=== PATIENT | female | born 1950 | race Caucasian/White ===

== ENCOUNTER → 2019-04-14 12:27 | Outpatient (CLI) | payer MEDICARE, SELFPAY ==
--- NOTE | ~2019-04-14 | MM_ITS ---
EXAMINATION: MM screening [facility] BI w dina HISTORY: Screening mammogram TECHNIQUE: Craniocaudal and mediolateral oblique 3-D tomosynthesis images were obtained and synthetic 2-D images were generated. CAD analysis was submitted and interpreted. COMPARISON: 12/01/2016, 01/09/2015, 06/10/2011 BREAST PARENCHYMAL COMPOSITION: The breasts are almost entirely fatty. FINDINGS: Scattered benign-appearing calcifications are present. There is no evidence of suspicious m ass, calcification, or architectural distortion to suggest malignancy in either breast. There has bee n no suspicious interval change. IMPRESSION: 1. No mammographic evidence of malignancy. 2. Recommend routine screening mammography in one year. BI-RADS Category 2: Benign finding(s). Reviewed, dictated and finalized at location A. LACER
--- NOTE | ~2019-04-14 | DEXA_ITS ---
Bone Density Report Name: Valerie Sheridan Age: 68 Sex: Female Ethnicity: White Date of : 1950 Indication: postmenopausal; screening for osteoporosis; Referring Provider: ROGERIO*, ADRIAN Miranda Study: Bone densitometry was performed. Exam Date: April 14, 2019 Accession number: [id number] Bone Density: Region BMD T-score Z-score Classification AP Spine (L1-L4) 1.219 1.6 3.7 Normal Femoral Neck (Left) 0.883 0.3 2.1 Normal Total Hip (Left) 1.050 0.9 2.4 Normal Femoral Neck (Right) 0.953 0.9 2.8 Normal Total Hip (Right) 0.998 0.5 2.0 Normal Total Hip Mean 1.024 0.7 2.2 Normal World Health Organization criteria for BMD impression classify patients as: Normal (T-score at or above -1.0), Osteopenia (T-score between -1.0 and -2.5), or Osteoporosis (T-score at or below -2.5). 10-year Fracture Risk: FRAX not reported because: All T-scores for Spine Total, Hip Total, Femoral Neck at or above -1.0 Previous Exams: Region Exam Age BMD T-score BMD Change BMD Change Date g/cm2 vs Baseline vs Previous AP Spine(L1-L4) 04/14/2019 68 1.219 1.6 0.015 -0.008 01/09/2015 64 1.227 1.6 0.023 0.023 11/15/2008 58 1.204 1.4 Total Hip(Left) 04/14/2019 68 1.050 0.9 0.010 -0.003 01/09/2015 64 1.053 0.9 0.013 0.013 11/15/2008 58 1.040 0.8 Total Hip(Right) 04/14/2019 68 0.998 0.5 -0.056 -0.046* 01/09/2015 64 1.044 0.8 -0.010 -0.010 11/15/2008 58 1.054 0.9 *Denotes significance at 95% confidence level, LSC for AP Spine = 0.022 g/cm2, LSC for Total Hip = 0.027 g/cm2 Clinical Information Provided by Patient: Patient maximum height was 61.75 Menopause Age: 46 No regular weight bearing exercise Drinks caffeinated beverages Onset of menses at age 10 Number of children 2 Impression: The patient has normal bone mass. The BMD for the Total Hip(Right) decreased, changing by -0.046 since the last DXA exam. Discussion: LOW RISK OF FRACTURE; BONE DENSITY IS WELL ABOVE THE MINIMUM DESIRABLE LEVEL AND ABOVE AVERAGE FOR AGE AND SEX AT ALL SKELETAL SITES TESTED. This person's bone density is above expected limits for age and sex. This is rarely clinically significant, but should be pursued if there are significant musculoskeletal complaints. The patient should follow a healthful lifestyle (good nutrition with adequate calc
== END ==
PROVIDERS: PCP Internal Medicine; Visit Provider Internal Medicine
DX: Z12.31 Encounter for screening mammogram for malignant neoplasm of breast (principal); Z78.0 Asymptomatic menopausal state
CPT/HCPCS: 77063; 77067; 77080

== ENCOUNTER → 2021-05-16 10:50 | Outpatient (CLI) | payer MEDICARE, SELFPAY ==
--- NOTE | ~2021-05-16 | MM_ITS ---
EXAMINATION: MM screening [facility] BI w dina HISTORY: Screening mammogram TECHNIQUE: Craniocaudal and mediolateral oblique 3-D tomosynthesis images were obtained and synthetic 2-D images were generated. CAD analysis was submitted and interpreted. COMPARISON: 04/14/2019, 12/01/2016, 01/09/2015 BREAST PARENCHYMAL COMPOSITION: The breasts are almost entirely fatty. FINDINGS: Scattered benign-appearing calcifications are present. There is no evidence of suspicious m ass, calcification, or architectural distortion to suggest malignancy in either breast. There has bee n no suspicious interval change. IMPRESSION: 1. No mammographic evidence of malignancy. 2. Recommend routine screening mammography in one year. BI-RADS Category 2: Benign finding(s). Reviewed, dictated and finalized at location A. SELING CASE MANAGER
== END ==
PROVIDERS: PCP Internal Medicine; Visit Provider Internal Medicine
DX: Z12.31 Encounter for screening mammogram for malignant neoplasm of breast (principal)
CPT/HCPCS: 77063; 77067

== ENCOUNTER → 2022-02-25 09:19 | Outpatient (CLI) | payer MEDICARE, SELFPAY ==
--- NOTE | ~2022-02-25 | DEXA_ITS ---
Bone Density Report Name: AIDEN CANAS Age: 71 Sex: Female Ethnicity: White Date of : 1950 Indication: postmenopausal; screening for osteoporosis; Referring Provider: ROGERIO*, ADRIAN Miranda Study: Bone densitometry was performed. Exam Date: February 25, 2022 Accession number: [id number] Bone Density: Region BMD T-score Z-score Classification AP Spine (L1-L4) 1.216 1.5 3.8 Normal Femoral Neck (Left) 0.851 0.0 2.0 Normal Total Hip (Left) 0.998 0.5 2.2 Normal Femoral Neck (Right) 0.920 0.6 2.6 Normal Total Hip (Right) 0.999 0.5 2.2 Normal Total Hip Mean 0.999 0.5 2.2 Normal World Health Organization criteria for BMD impression classify patients as: Normal (T-score at or above -1.0), Osteopenia (T-score between -1.0 and -2.5), or Osteoporosis (T-score at or below -2.5). 10-year Fracture Risk: FRAX not reported because: All T-scores for Spine Total, Hip Total, Femoral Neck at or above -1.0 Previous Exams: Region Exam Age BMD T-score BMD Change BMD Change Date g/cm2 vs Baseline vs Previous AP Spine(L1-L4) 02/25/2022 71 1.216 1.5 0.012 -0.003 04/14/2019 68 1.219 1.6 0.015 -0.008 01/09/2015 64 1.227 1.6 0.023 0.023 11/15/2008 58 1.204 1.4 Total Hip(Left) 02/25/2022 71 0.998 0.5 -0.042 -0.052* 04/14/2019 68 1.050 0.9 0.010 -0.003 01/09/2015 64 1.053 0.9 0.013 0.013 11/15/2008 58 1.040 0.8 Total Hip(Right) 02/25/2022 71 0.999 0.5 -0.055 0.001 04/14/2019 68 0.998 0.5 -0.056 -0.046* 01/09/2015 64 1.044 0.8 -0.010 -0.010 11/15/2008 58 1.054 0.9 *Denotes significance at 95% confidence level, LSC for AP Spine = 0.022 g/cm2, LSC for Total Hip = 0.027 g/cm2 Clinical Information Provided by Patient: Has used the following medications: Vitamin D, Calcium, MULTIVITAMIN Patient maximum height was 61.75 Menopause Age: 46 No regular weight bearing exercise Does not regularly consume dairy products Drinks caffeinated beverages Onset of menses at age 10 Number of children 2 Impression: The patient has normal bone mass. The BMD for the Total Hip(Left) decreased, changing by -0.052 since the last DXA exam. Discussion: BONE DENSITY IS ABOVE THE MINIMUM DESIRABLE LEVEL AT ALL SKELETAL SITES TESTED. This patient?s jaquan
== END ==
PROVIDERS: PCP Internal Medicine; Visit Provider Internal Medicine
DX: M81.0 Age-related osteoporosis without current pathological fracture (principal)
CPT/HCPCS: 77080

== ENCOUNTER → 2022-10-15 10:26 | Outpatient (CLI) | payer MEDICARE, SELFPAY ==
--- NOTE | ~2022-10-15 | MM_ITS ---
EXAMINATION: MM screening [facility] BI w dina HISTORY: Screening mammogram TECHNIQUE: Craniocaudal and mediolateral oblique 3-D tomosynthesis images were obtained and synthetic 2-D images were generated. CAD analysis was submitted and interpreted. COMPARISON: No prior mammogram is available for comparison at this institution. BREAST PARENCHYMAL COMPOSITION: The breasts are almost entirely fatty. FINDINGS: There is no evidence of suspicious mass, calcification, or architectural distortion to sugg est malignancy in either breast. There has been no suspicious interval change. IMPRESSION: 1. No mammographic evidence of malignancy. 2. Recommend routine screening mammography in one year. BI-RADS Category 1: Negative Reviewed, dictated and finalized at location A.
== END ==
PROVIDERS: PCP Internal Medicine; Visit Provider Internal Medicine
DX: Z12.31 Encounter for screening mammogram for malignant neoplasm of breast (principal)
CPT/HCPCS: 77063; 77067

== ENCOUNTER 2023-04-28 00:47 | Day surgery (SDC) | payer MEDICARE, SELFPAY ==
[2023-04-03 11:00] VITALS: BMI 36.1
--- NOTE | 2023-04-24 11:19 | SUR.PREOP ---
Patient called regarding upcoming procedure. VOICEMAIL LEFT REGARDING UPCOMING APPOINTMENT. INSTRUCTED TO CALL WITH ANY QUESTIONS. CONFIRMED TIME AND DATE.
--- NOTE | 2023-04-27 19:33 | PM.HPGS ---
History of Present Illness History of Present Illness Consent: Risks, benefits, and alternatives have been discussed and questions answered. Patient agrees to proceed with procedure. Chief complaint: hx colon polyps Narrative: Valerie Sheridan is a 72 year old female who is referred for colon cancer screening. 6 years ago she had a tubular adenoma removed from the area of the hepatic flexure. Review of Systems Review of Systems: All systems reviewed & are unremarkable except as noted in HPI and below PMFSH Social History Social History Smoking status: Former smoker Tobacco type: cigarettes Alcohol intake: current Drinks per week: 1 Substance use type: does not use Living arrangements: alone Spiritual care concerns: No Meds Home Medications and Allergies Home Medications Medication Instructions Recorded Confirmed Type Bifidobacterium infantis 10.5 mg 10.5 mg PO DAILY 04/03/23 04/28/23 History (10 million cell) chewable tablet (Align) aspirin 81 mg tablet 81 mg PO DAILY 04/03/23 04/28/23 History lisinopril 20 mg tablet 10 mg PO DAILY 04/03/23 04/28/23 History Allergies Allergy/AdvReac Type Severity Reaction Status Date / Time No Known Allergies Allergy Verified 04/28/23 08:16 Exam Const: General: alert Orientation/consciousness: patient oriented x3 Resp: Auscultation: clear to auscultation bilaterally Cardio: Rhythm: regular rhythm GI: GI Palp: Yes Soft to palpation and No Tenderness to palpation present (GI) Neuro: General: patient oriented x3 Assessment and Plan Assessment and plan (1) Colon cancer screening: Code(s): Z12.11 - Encounter for screening for malignant neoplasm of colon Status: Acute Assessment and Plan: Colonoscopy with possible biopsy or polypectomy or cautery or injection of substances.
[2023-04-28 08:18] VITALS: BP 143/74; PULSE 87; RESP 18; TEMP 36.4; O2SAT 97; BMI 36.3
[2023-04-28] MEDS: LACTATED RINGERS 1,000 ML 150 ML IV CONT (08:43)
[2023-04-28] MEDS: GENTAMICIN 80MG/SOD CHL 50 ML 80 MG/50 ML BAG 100 MG IVPB (08:44)
[2023-04-28] MEDS: AMPICILLIN 2 GM/NS 100 ML 2 GM/100 ML BAG IVPB (09:10)
[2023-04-28 09:30] VITALS: BP 125/60; PULSE 76; RESP 16; O2SAT 98
[2023-04-28 09:40] VITALS: BP 129/68; PULSE 73; RESP 19; O2SAT 100
[2023-04-28 09:50] VITALS: BP 103/66; PULSE 58; RESP 20; O2SAT 100
--- NOTE | 2023-05-08 15:27 | P.PNAN_ITS ---
Anes - Initial Pre Proc Eval Procedure: Operation Date: 04/28/23 09:30 Proposed Procedures p Colonoscopy - Martin Kenney MD Date/Time: 05/08/23 15:27 Surgeon: Martin Kenney MD Pre Op Diagnosis: hx colon polyps Patient Data Age: 72 Gender: F Height: 1.57 m Weight: 90.3 kg Last Vital Signs Temp 97.5 F L 04/28/23 08:18 Pulse 58 L 04/28/23 09:50 Resp 20 04/28/23 09:50 BP 103/66 04/28/23 09:50 Pulse Ox 100 04/28/23 09:50 O2 Del Method Room Air 04/28/23 09:50 Allergies Allergy/AdvReac Type Severity Reaction Status Date / Time No Known Allergies Allergy Verified 04/28/23 08:16 Home Medications Medication Instructions Recorded Confirmed Type Bifidobacterium infantis 10.5 mg 10.5 mg PO DAILY 04/03/23 04/28/23 History (10 million cell) chewable tablet (Align) aspirin 81 mg tablet 81 mg PO DAILY 04/03/23 04/28/23 History lisinopril 20 mg tablet 10 mg PO DAILY 04/03/23 04/28/23 History Patient hx anesthesia problems: none Family hx anesthesia problems: none Results Review: All pre-operative results and documents have been reviewed as part of the pre- operative evaluation. [facility] Social History Social History Smoking status: Former smoker Tobacco type: cigarettes Alcohol intake: current Drinks per week: 1 Substance use type: does not use Living arrangements: alone Spiritual care concerns: No Anes - Eval Final PreProcedure Day of Procedure 05/08/23 15:27 Patient weight: obese Heart: regular rate and rhythm Lungs: clear to auscultation Airway: Mallampati scale class III Neurological: alert and oriented Last oral intake: >/= 8 hours ASA classification: III Emergent: no Anesthetic plan: proceed Anesthesia type and monitoring: general GIVS and standard monitoring Results Review: All pre-operative results and documents have been reviewed as part of the pre- operative evaluation. Informed Consent: The patient's anesthetic plan and its attendant risks and benefits were discussed with the patient/family/POA. Questions were solicited and answers provided to the satisfaction of the patient/family/POA.
== END 2023-04-28 10:03 | disposition home or self-care (01) ==
PROVIDERS: PCP Internal Medicine; Visit Provider Internal Medicine Gastroenterology
PROC: 0DJD8ZZ Inspection of Lower Intestinal Tract, Via Natural or Artificial Opening Endoscopic (ICD-10-PCS; CPT 45378; principal; 2023-04-28 09:30)
DX: Z12.11 Encounter for screening for malignant neoplasm of colon (principal); K57.30 Diverticulosis of large intestine without perforation or abscess without bleeding; K64.8 Other hemorrhoids; Z86.010 Personal history of colon polyps; Z87.891 Personal history of nicotine dependence; Z79.82 Long term (current) use of aspirin
CPT/HCPCS: G0105; J0290; J1580; J2704; J7120

== ENCOUNTER 2023-10-05 08:34 | Outpatient (CLI) | payer MEDICARE, SELFPAY ==
--- NOTE | ~2023-10-05 | MR_ITS ---
EXAMINATION: MR knee LT wo con DATE: 10/05/2023 09:17 INDICATION: S83.242A - Other tear of medial meniscus, current injury,... TECHNIQUE: Magnetic resonance imaging (MRI) of the left knee was performed without intravenous contra st. Sequences included axial PD-weighted FS FSE, coronal PD-weighted FSE and PD-weighted FS FSE, sagi ttal PD-weighted FSE, and sagittal T2-weighted FS FSE. COMPARISON: 09/29/2023, images only. FINDINGS: Medial compartment: Apical and horizontally oriented cleavage type tear of the meniscal body and posterior horn. Severe d iffuse cartilage thinning. Mild osteophytosis. Lateral compartment: Meniscus intact. Severe diffuse cartilage thinning. Mild osteophytosis. Patellofemoral compartment: Focal full-thickness cartilage loss over the median facet. Ligaments and tendons: The ACL, PCL, MCL, and LCL are intact. Remaining flexor and extensor tendons are intact. Quadriceps e nthesopathy. Fluid: Small Florentino's cyst. Osseous/other: No suspicious focal or diffuse marrow signal. IMPRESSION: Complex tear of the medial meniscal body and posterior horn. Moderate tricompartmental osteoarthritis. Quadriceps enthesopathy. Small Florentino's cyst. Reviewed, dictated and finalized at location K.
== END 2023-10-05 08:35 ==
LOC: MICIMG 08:35
PROVIDERS: PCP Internal Medicine; Visit Provider Orthopaedic Surgery
DX: S83.232A Complex tear of medial meniscus, current injury, left knee, initial encounter (principal); M17.12 Unilateral primary osteoarthritis, left knee; M71.22 Synovial cyst of popliteal space [Baker], left knee; X58.XXXA Exposure to other specified factors, initial encounter
CPT/HCPCS: 73721

== ENCOUNTER 2024-04-11 11:16 | Outpatient (CLI) | payer MEDICARE, SELFPAY ==
[2024-04-11 11:27] LABS: Collection Time Urine 24 HOURS
[2024-04-11 11:55] LABS: Estimated Glomerular Filt Rate 41
[2024-04-11 12:13] LABS: Patient Weight 203 Lbs; Total Protein Urine Random 8 mg/dL
--- OUTSIDE RECORDS SUMMARY | 2024-04-11 12:20 | XMS_ITS | Clinical Summary ---
Author Organization [facility] [place] [address] Address [address] [place] [address] Care Team Providers Care Distance Education Director Name Role Phone Jakob Mohr MD Primary Care Provider Allergies No known active allergies Medications aspirin 81 mg enteric coated tablet Take 1 tablet (81 mg total) by mouth daily Active estrogens, conjugated, (PREMARIN) vaginal cream Insert into the vagina daily Active lisinopriL (PRINIVIL,ZESTRI L) 20 mg tablet Take 1 tablet (20 mg total) by mouth daily 04/13/2023 Active ascorbic acid, vitamin C, (ascorbic acid) 250 mg tablet,chewable Take 1 tablet/chew tab by mouth daily after lunch Active zinc sulfate (ZINC-15 ORAL) Take 1 tablet by mouth daily after lunch Active calcium carb/vit D3/minerals (CALCIUM-VITAMIN D ORAL) Take 1 tablet by mouth daily Active Bacillus coagulans/inulin (PROBIOTIC WITH PREBIOTIC ORAL) Take 2 Gum by mouth daily after lunch Active ashwagandha root extract 300 mg tablet Take 1 tablet by mouth daily after lunch Active rosuvastatin (CRESTOR) 10 mg tablet Take 1 tablet (10 mg total) by mouth daily 02/04/2024 5 Active Active Problems Problem Noted Date Diagnosed Date Hyperlipidemia LDL goal <70 06/23/2023 Coronary artery calcification seen on CT scan Abnormal ECG 05/14/2023 Class 2 severe obesity due t o excess calories with serious comorbidity and body mass index (BMI) of 36.0 to 36.9 in adult 05/14/2023 PND (paroxysmal nocturnal dyspnea) 05/14/2023 History of rheumatic fever 05/14/2023 Essential hypertension 05/14/2023 SOB (shortness of breath) 05/14/2023 Chest pain 05/14/2023 Abnormal mammogram 01/15/2010 Encounters Date Type Department Care Team Description 01/21/2024 Telephone [facility] [address] [place] [address] Osman Luu MD Medication Reaction; Muscle Pain from Last 3 Months Surgical History Surgery Date Site/Laterality Comments CATARACT EXTRACTION CHOLECYSTECTOMY KNEE SURGERY Medical History Medical History Date Comments Rheumatic fever Hypertension History of gallstones Family History Medical History Relation Name Comments COPD Brother 1 Rheum arthritis Brother 2 Pneumonia Brother 3 Lung cancer Father Heart disease Mother Rheum arthritis Sister 1 Heart failure Sister 4 Kidney disease Sister 5 Car Accident Sister 6 Relation Name Status Comments Brother 1 Brother 2 Brother 3 Father Mother Sister 1 Alive Sister 2 Alive Sister 3 Alive Sister 4 Sister 5 Sister 6 Social History Tobacco Use Types Packs/Day Years Used Date Smoking Tobacco: Former Cigarettes Passive Smoke Exposure: Past Smokeless Tobacco: Never Tobacco Cessation:Counseling Given: Not Answered Personal Safety Answer Date Recorded Have you ever been in or are you currently in a harmful physical or emotional relationship or is someone making you feel afraid or unsafe? 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 Gender Identity Not on file Sexual Orientation Not on file Obstetrics History Last Filed Vital Signs Vital Sign Reading Time Taken Comments Blood Pressure 100/58 12/14/2023 10:24 AM CDT Pulse 75 12/14/2023 10:24 AM CDT Temperature 36.3 ??C (97.3 ??F) 06/17/2023 11:23 AM C DT Respiratory Rate 22 06/17/2023 3:50 PM CDT Oxygen Saturation 97% 12/14/2023 10:24 AM CDT Inhaled Oxygen Concentration - - Weight 92.1 kg (203 lb) 12/14/2023 10:24 AM CDT Height 160 cm (5' 3 ) 12/14/2023 10:24 AM CDT Body Mass Index 35.96 12/14/2023 10:24 AM CDT Plan of Treatment Health Maintenance Due Date Last Done Comments Colon Cancer Screening-Colonoscopy 1950 Depression Screening 1950 Fall Risk Assessment 1950 Hepatitis C Screening 1950 Osteoporosis Screening-Bone Density Scan 1950 DTaP/Tdap/Td Vaccine (1 - Tdap) 09/23/1959 Hepatitis B Screening 1966 Zoster Vaccine (2 of 3) 06/03/2013 04/08/2013 Well Visit 65+ 2013 Pneumococcal vaccine 65+ (2 of 2 - PPSV23 or PCV20) 02/23/2020 02/22/2019 Covid-19 Vaccine (2023-2 5 season) 2023 09/12/2022, 02/14/2022, 10/03/2021, Additional history exists Influenza Vaccine (#1) 2023 , 01/17/2021, 12/13/2019, Additional history exists Insurance MEDICARE [facility] MEDICARE Care Teams Distance Education Director Relationship Specialty Start Date End Date Jakob Mohr MD [facility] [place] [address] PCP - General Internal Medicine 06/08/23
--- OUTSIDE RECORDS SUMMARY | 2024-04-11 12:20 | XMS_ITS | Clinical Summary ---
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 Gender Identity Not on file Sexual Orientation Not on file Plan of Treatment Health Maintenance Due Date Last Done Comments DEXA Bone Density 1950 Hepatitis C Virus (HCV) Screening 1950 TdaP Immunization 1950 Colonoscopy 1993 Colorectal Cancer Screening 1993 Cologuard 1998 Immunochemical Fecal Occult Blood 1998 Mammogram 1998 Pneumococcal Immunization (5 0+ years) (1 of 1 - PCV) 1998 Zoster Immunization (1 of 2) 1998 Respiratory Syncytial Virus (RSV) Immunization (Adult) (1 - 1-dose 75+ series) 09/23/2023 Influenza Immunization (#1) 2023 SARS-COV-2 Immunization ( season) 2023 Hepatitis B Immunization Aged Out No longer eligible based on patient's age to complete this topic Meningococcal Immunization (ACWY) Aged Out No longer eligible based on patient's age to complete this topic Rotavirus Immunization Aged Out No lo nger eligible based on patient's age to complete this topic
--- OUTSIDE RECORDS SUMMARY | 2024-04-11 12:20 | XMS_ITS | Data Portability ---
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 Plan of Treatment Reminders Order Date Submit Date Provider Last Modified By Organization Details Last Modified Time Details Appointments None recorded. Lab iron + total iron-stephen ng capacity (TIBC), serum [address] [facility], [address] [place], [address], 3 10:02:24 CBC w/ auto diff [address] [facility], [address] [place], [address], 3 10:02:25 vitamin B12, serum [address] [facility], [address] [place], [address], 3 10:02:26 vitamin D, 25-hydroxy , total, serum [address] [facility], [address] [place], [address], 3 04:53:05 CBC w/ auto diff [address] [facility], [address] [place], [address], 3 04:53:02 CMP, serum or plasma [address] [facility], [address] [place], [address], 3 04:53:01 lipid panel, serum [address] [facility], [address] [place], [address], 3 04:52:59 TSH, serum or plasma [address] [facility], [address] [place], [address], 3 04:53:04 T4, free, serum [address] [facility], [address] [place], [address], 3 04:53:03 lipid panel, serum [id number] [facility], [address] [place], [address], 4 09:42:42 CMP, serum or plasma [id number] [facility] [address] [facility], [address] [place], [address], 4 09:42:42 T4, free, serum [id number] [facility] [address] [facility], [address] [place], [address], 4 09:42:42 TSH, serum or plasma [id number] [facility], [address] [place], [address], 4 09:42:42 CBC w/ auto diff [id number] [facility], [address] [place], [address], 4 09:42:42 CBC w/ auto diff [address] [facility], [address] [place], [address], 4 11:05:53 CMP, serum or plasma [address] [facility], [address] [place], [address], 4 11:05:52 lipid panel, serum 2023 024 [facility], [address] [place], [address], 4 11:05:50 TSH, serum or plasma [address] [facility], [address] [place], [address], 4 11:05:56 T4, free, serum [address] [facility], [address] [place], [address], 4 11:05:54 Referral None recorded. Procedures None recorded. Surgeries None recorded. Imaging None recorded. Medication Orders None recorded. Patient TargetsNo targets recorded. Patient Instructions Encounter Date Encounter Id Patient Instructions Last Modified By Organization Details Last Modified Time 07/22/2022 [id number] Hypertension -cl ass two obesity- PICA for crushed ice. Continue on current medications. Will check blood work consisting of CBC, serum iron level iron binding capacity and ferritin level. Check a CMP. Also needs a mammogram. Follow-up in six months. Mammogram [email or web address] Not available 07/22/2022 11:05:33 01/27/2023 [id number] dementia rating scale-2* [email or web address] Not available 01/27/2023 11:20:55 alcohol misuse* Not available 01/27/2023 11:20:55 depression screening* [email or web address] Not available 01/27/2023 11:20:55 Timed Up and Go test (TUG)* [email or web address] Not available 01/27/2023 11:20:55 multi-dimensiona l health assessment questionnaire* Not available 01/27/2023 11:20:55 Personalized Hea lt Plan and Screening Recommendations Advance Directives - Do you have one? Yes Advance Directives - Do we have your advance directive on file in your health record? Primary Prevention/Interven tion (prevents or decreases the chance of common diseases from occurring) Smoking Risk: Non Smoker Alcohol Misuse Screening: Negative Weight: Appropriate Overwei ght continue your current weight loss efforts try to lose 5% of your body weight try to lose 10% of your body weight Physical activity: Nutrition: Good Average Fall Risk (screened today): Low Vaccines Pneumococcal: Ordered Recommended today Recommended today, but you have declined No further needed Influenza: Chronic Disease Risks Stroke: Low Risk Intermediate Risk I have no recommendations Act thien diagnosis, Continue current treatment plan Heart Attack: Low risk I have no recommendations Clogging of the Arteries: Low risk I have no recommendations Diabetes: Low Risk Intermediate Risk I have no recommendations Ref er to attached handout ? P re-diabetes: After Your Visit? Drastically limit sugar and products made with any type of flour (bread, pasta, cereal, cookies, crackers, etc.) Secondary Prevention/Interven tion (detects treatable diseases before they may cause symptoms, disability, or ) Breast Cancer Screening with mammogram: Cervical/Uterine/Ov nas Cancer Screening: Osteoporosis Screening: Date Screening Last Performed: Colon Cancer Screening: Colonoscopy In: Ordered Recomme nded Date Screening Last Performed: Eye Disease Screening: Dementia Risk: Low I have no recommendations Depression Screening: Negative [email or web address] Not available 01/27/2023 11:04:44 Adult health examination risk assessment stable. Follow-up for hypertension, atypical chest pain, obesity class two all clinically stable. Was given a flu shot. Will check blood work consisting of CBC, CMP, lipid, thyroid and vitamin-D level. Is in need have a colonoscopy follow-up. Continue on current medications and follow-up in six months. Standard immunizations of RSV, COVID, influenza and shingles as recommended. Portions of the record may have been created with voice recognition software. Occasional wrong-word or ? s ound-a-like? substitutions may have occurred due to the inherent limitations of voice recognition software. Read the chart carefully and recognize, using context, where substitutions have occurred. Follow-up colonoscopy for polyps. Cardiology consult for atypical exertional shortness of breath and chest discomfort Next Appt: 6 Months Approximate Date: 07/26/2023 [email or web address] Not available 01/27/2023 11:20:12 07/28/2023 [id number] Follow-up hypertension, hyperlipidemia and obesity class two all clinically stable. Will check a CBC, CMP, thyroid and lipid panel. Continue on current Rx follow-up in six months. Next Appointment: 6 Months Approximate Date: 01/24/2024 Portions of the record may have been created with voice recognition software. Occasional wrong-word or ? s ound-a-like? substitutions may have occurred due to the inherent limitations of voice recognition software. Read the chart carefully and recognize, using context, where substitutions have occurred. [email or web address] Not available 07/28/2023 10:44:23 02/02/2024 [id number] dementia rating scale-2* Not available 02/02/2024 11:11:05 alcohol misuse* [email or web address] Not available 02/02/2024 11:11:04 depression screening* [email or web address] Not available 02/02/2024 11:11:04 multi-dimensiona l health assessment questionnaire* [email or web address] Not available 02/02/2024 11:11:05 Personalized Hea lth Plan and Screening Recommendations Advance Directives - Do you have one? Yes Advance Directives - Do we have your advance directive on file in your health record? Primary Prevention/Interven tion (prevents or decreases the chance of common diseases from occurring) Smoking Risk: Non Smoker Alcohol Misuse Screening: Negative Weight: Appropriate Overwei ght continue your current weight loss efforts try to lose 5% of your body weight try to lose 10% of your body weight Physical activity: Nutrition: Good Average Fall Risk (screened today): Low Vaccines Pneumococcal: Ordered Recommended today Recommended today, but you have declined No further needed Influenza: Chronic Disease Risks Stroke: Low Risk Intermediate Risk I have no recommendations Act thien diagnosis, Continue current treatment plan Heart Attack: Low risk Intermediate Risk I have no recommendations Act thien diagnosis, Continue current treatment plan Clogging of the Arteries: Low risk Intermediate Risk I have no recommendations Act thien diagnosis, Continue current treatment plan Diabetes: Low Risk Intermediate Risk I have no recommendations Ref er to attached handout ? P re-diabetes: After Your Visit? Drastically limit sugar and products made with any type of flour (bread, pasta, cereal, cookies, crackers, etc.) Secondary Prevention/Interven tion (detects treatable diseases before they may cause symptoms, disability, or ) Breast Cancer Screening with mammogram: Your next mammogram: Ordered Recommended today Cervical/Uterine/Ov nas Cancer Screening: Osteoporosis Screening: Your next DEXA in: Ordered Recomme nded today Date Screening Last Performed: Colon Cancer Screening: Colonoscopy Date Screening Last Performed: _2023____ Eye Disease Screening: Dementia Risk: Low I have no recommendations Depression Screening: Negative [email or web address] Not available 02/02/2024 11:04:08 Medicare wellnes s evaluation risk assessment stable. Follow-up for coronary artery disease, hypertension, hyperlipidemia and obesity class one. All clinically stable. Patient does need blood work in the form of CBC, CMP, lipid, thyroid and vitamin-D level. Will continue on current Rx was unable to tolerate the statins. Is followed on a regular basis by Cardiology was attempting to use when the PCSK9 inhibitors. Otherwise is clinically stable. Follow-up in six months. Additional Orders - Directives - Recommendations 1. Mammogram 2 . Bone density scan Follow Up: 6 Months Approximate Date: 07/31/2024 Created: Adrian Mohr M.D. 02.02.2024 10:10 AM Portions of the record may have been created with voice recognition software. Occasional wrong-word or ? s ound-a-like? substitutions may have occurred due to the inherent limitations of voice recognition software. Read the chart carefully and recognize, using context, where substitutions have occurred. Not available 02/02/2024 11:10:43 Reason for Referral None Reported. Results Created Date Observation Date Name Description Value Unit Range Abnormal Flag Note LastModifiedBy Organization Detail LastModifiedTime 02/14/20 22 02/14/2022 VITAM IN D,25- OH,TO ANI,I A vitamin D,25-oh,tota l,ia 31 NG/mL 30-100 normal Vitam in D Statu s 25-OH Vitam in D: Defic iency : <20 ng/mL Insuf ficie ncy: 20 - 29 ng/mL Optim al: > or = 30 ng/mL For 25-OH Vitam in D testi ng on patie nts on D2-friedman pplem entat ion and patie nts for whom quant itati on of D2 and D3 fract ions is requi red, the [facility] e[facility](TM ) 25-OH VIT D, (D2,D 3), LC/MS /MS is recom kanu d: order code 88014 (memo ents >2yrs ). See Note 1 Note 1 For addit ional infor lashae segura e refer to http: //padmini Chris stDia gnost ics.c om/fa q/FAQ 199 (This link is being provi ded for infor muna machuca/ machelle villagran purpo ses only. ) Not Available [facility] [place] [address] [place], [address], 02/14/2022 15:05:27 02/14/20 22 02/14/2022 TSH TSH 1.59 mIU/L 0.40-4 .50 normal Not Available [facility] [place] [address] [place], [address], 02/14/2022 15:05:26 02/14/20 22 02/14/2022 T4, FREE T4, free 1.0 NG/dL 0.8-1. 8 normal Not Available [facility] [place] [address] [place], [address], 02/14/2022 15:05:25 02/14/20 22 02/14/2022 CBC (INCL UDES DIFF/ PLT) white blood cell count 6.2 thous and/u L 3.8-10 .8 normal Not Available [address], [address], 02/14/2022 15:05:25 02/14/20 22 02/14/2022 CBC (INCL UDES DIFF/ PLT) red blood cell count 4.25 brendan on/uL 3.80-5 .10 normal Not Available [address], [address], 02/14/2022 15:05:25 02/14/20 22 02/14/2022 CBC (INCL UDES DIFF/ PLT) hemoglobin 11.8 g/dL 11.7-1 5.5 normal Not Available [address], [address], 02/14/2022 15:05:25 02/14/20 22 02/14/2022 CBC (INCL UDES DIFF/ PLT) hematocrit 36.7 % 35.0-4 5.0 normal Not Available [address], [address], 02/14/2022 15:05:25 02/14/20 22 02/14/2022 CBC (INCL UDES DIFF/ PLT) MCV 86.4 fL 80.0-1 00.0 normal Not Available [address], [address], 02/14/2022 15:05:25 02/14/20 22 02/14/2022 CBC (INCL UDES DIFF/ PLT) MCH 27.8 pg 27.0-3 3.0 normal Not Available [address], [address], 02/14/2022 15:05:25 02/14/20 22 02/14/2022 CBC (INCL UDES DIFF/ PLT) MCHC 32.2 g/dL 32.0-3 6.0 normal Not Available [address], [address], 02/14/2022 15:05:25 02/14/20 22 02/14/2022 CBC (INCL UDES DIFF/ PLT) RDW 14.2 % 11.0-1 5.0 normal Not Available [address], [address], 02/14/2022 15:05:25 02/14/20 22 02/14/2022 CBC (INCL UDES DIFF/ PLT) platelet count 276 thous and/u L 140-40 0 normal Not Available [address], [address], 02/14/2022 15:05:25 02/14/20 22 02/14/2022 CBC (INCL UDES DIFF/ PLT) MPV 9.5 fL 7.5-12 .5 normal Not Available [address], [address], 02/14/2022 15:05:25 02/14/20 22 02/14/2022 CBC (INCL UDES DIFF/ PLT) absolute neutrophils 2877 cells /uL 1500-7 800 normal Not Available [address], [address], 02/14/2022 15:05:25 02/14/20 22 02/14/2022 CBC (INCL UDES DIFF/ PLT) absolute lymphocytes 2232 cells /uL 850-39 00 normal Not Available [address], [address], 02/14/2022 15:05:25 02/14/20 22 02/14/2022 CBC (INCL UDES DIFF/ PLT) absolute monocytes 502 cells /uL 200-95 0 normal Not Available [address], [address], 02/14/2022 15:05:25 02/14/20 22 02/14/2022 CBC (INCL UDES DIFF/ PLT) absolute eosinophils 521 cells /uL 15-500 high Not Available [address], [address], 02/14/2022 15:05:25 02/14/20 22 02/14/2022 CBC (INCL UDES DIFF/ PLT) absolute basophils 68 cells /uL 0-200 normal Not Available [facility] [address], [address], 02/14/2022 15:05:25 02/14/20 22 02/14/2022 CBC (INCL UDES DIFF/ PLT) neutrophils 46.4 % normal Not Available [facility] [address], [address], 02/14/2022 15:05:25 02/14/20 22 02/14/2022 CBC (INCL UDES DIFF/ PLT) lymphocytes 36.0 % normal Not Available [facility] [address], [address], 02/14/2022 15:05:25 02/14/20 22 02/14/2022 CBC (INCL UDES DIFF/ PLT) monocytes 8.1 % normal Not Available [facility] [address], [address], 02/14/2022 15:05:25 02/14/20 22 02/14/2022 CBC (INCL UDES DIFF/ PLT) eosinophils 8.4 % normal Not Available [facility] [address], [address], 02/14/2022 15:05:25 02/14/20 22 02/14/2022 CBC (INCL UDES DIFF/ PLT) basophils 1.1 % normal Not Available [facility] [address], [address], 02/14/2022 15:05:25 02/14/20 22 02/14/2022 COMPR EHENS THIEN METAB OLIC PANEL glucose 99 mg/dL 65-99 normal Fasti ng refer ence inter [email or web address] Not Available [address], [address], 02/14/2022 15:05:24 02/14/20 22 02/14/2022 COMPR EHENS THIEN METAB OLIC PANEL urea nitrogen (BUN) 15 mg/dL 7-25 normal Not Available [address], [address], 02/14/2022 15:05:24 02/14/20 22 02/14/2022 COMPR EHENS THIEN METAB OLIC PANEL creatinine 1.12 mg/dL 0.60-1 .00 high Not Available [address], [address], 02/14/2022 15:05:24 02/14/20 22 02/14/2022 COMPR EHENS THIEN METAB OLIC PANEL eGFR 52 mL/mi n/1.7 3m2 > or = 60 low The eGFR is based on the CKD-E PI 2020 equat ion. To calcu late the new eGFR from a previ ous Creat inine or Cysta marilynn C resul t, go to https ://jerry arteaga/corina moscoso s/ kdoqi /gfr% 5Fcal culat or Not Available [address], [address], 02/14/2022 15:05:24 02/14/20 22 02/14/2022 COMPR EHENS THIEN METAB OLIC PANEL BUN/creatini ne ratio 13 (calc ) 6-22 normal Not Available [address], [address], 02/14/2022 15:05:24 02/14/20 22 02/14/2022 COMPR EHENS THIEN METAB OLIC PANEL sodium 143 mmol/ L 135-14 6 normal Not Available [address] [place], [address], 02/14/2022 15:05:24 02/14/20 22 02/14/2022 COMPR EHENS THIEN METAB OLIC PANEL potassium 4.8 mmol/ L 3.5-5. 3 normal Not Available [address], [address], 02/14/2022 15:05:24 02/14/20 22 02/14/2022 COMPR EHENS THIEN METAB OLIC PANEL chloride 108 mmol/ L 98-110 normal Not Available [address], [address], 02/14/2022 15:05:24 02/14/20 22 02/14/2022 COMPR EHENS THIEN METAB OLIC PANEL carbon dioxide 28 mmol/ L 20-32 normal Not Available [address], [address], 02/14/2022 15:05:24 02/14/20 22 02/14/2022 COMPR EHENS THIEN METAB OLIC PANEL calcium 8.9 mg/dL 8.6-10 .4 normal Not Available [address], [address], 02/14/2022 15:05:24 02/14/20 22 02/14/2022 COMPR EHENS THIEN METAB OLIC PANEL protein, total 6.3 g/dL 6.1-8. 1 normal Not Available [address], [address], 02/14/2022 15:05:24 02/14/20 22 02/14/2022 COMPR EHENS THIEN METAB OLIC PANEL albumin 3.8 g/dL 3.6-5. 1 normal Not Available [address], [address], 02/14/2022 15:05:24 02/14/20 22 02/14/2022 COMPR EHENS THIEN METAB OLIC PANEL globulin 2.5 g/dL_ (calc ) 1.9-3. 7 normal Not Available [address], [address], 02/14/2022 15:05:24 02/14/20 22 02/14/2022 COMPR EHENS THIEN METAB OLIC PANEL albumin/glob ulin ratio 1.5 (calc ) 1.0-2. 5 normal Not Available [address], [address], 02/14/2022 15:05:24 02/14/20 22 02/14/2022 COMPR EHENS THIEN METAB OLIC PANEL bilirubin, total 0.3 mg/dL 0.2-1. 2 normal Not Available [address], [address], 02/14/2022 15:05:24 02/14/20 22 02/14/2022 COMPR EHENS THIEN METAB OLIC PANEL alkaline phosphatase 68 U/L 37-153 normal Not Available [address], [address], 02/14/2022 15:05:24 02/14/20 22 02/14/2022 COMPR EHENS THIEN METAB OLIC PANEL AST 12 U/L 10-35 normal Not Available [address], [address], 02/14/2022 15:05:24 02/14/20 22 02/14/2022 COMPR EHENS THIEN METAB OLIC PANEL ALT 8 U/L 6-29 normal Not Available [address], [address], 02/14/2022 15:05:24 02/14/20 22 02/14/2022 LIPID PANEL , STAND ZORA chol/HDLC ratio 4.3 (calc ) <5.0 normal Not Available [address] [place], [address], 02/14/2022 15:05:23 02/14/20 22 02/14/2022 LIPID PANEL , STAND ZORA cholesterol, total 224 mg/dL <200 high Not Available [facility] [address], [address], 02/14/2022 15:05:23 02/14/20 22 02/14/2022 LIPID PANEL , STAND ZORA HDL cholesterol 52 mg/dL > or = 50 normal Not Available [facility] [address] [place], [address], 02/14/2022 15:05:23 02/14/20 22 02/14/2022 LIPID PANEL , STAND ZORA triglyceride s 249 mg/dL <150 high If a non-f astin g speci men was colle cted, consi emilio repea t trigl yceri de testi ng on a fasti ng speci men if clini delta indic ated. Naresh khan et al. J. of Clin. Lipid ol. 2015; 9:129 -169. Not Available [address], [address], 02/14/2022 15:05:23 02/14/20 22 02/14/2022 LIPID PANEL , STAND ZORA LDL-choleste rol 134 mg/dL _(christopher c) high Refer ence range : <100 Mile able range <100 mg/dL for prima ry preve ntion ; <70 mg/dL for patie nts with CHD or diabe tic patie nts with > or = 2 CHD risk facto rs. LDL-C is now calcu lated using the Wendy n-Hop kins mineu lorri n, which is a valid ated novel jacey guardado than the Fried esther equat ion in the estim ation of LDL-C . Wendy oseguera SS et al. YOLANDA. 2013; 310(1 9): 2061- 2068 (http ://ed ucati on.Qu estDi Dexmos. com/f aq/FA Q164) Not Available [facility] [address] [place], [address], 02/14/2022 15:05:23 02/14/20 22 02/14/2022 LIPID PANEL , STAND ZORA non HDL cholesterol 172 mg/dL _(christopher c) <130 high For patie nts with diabe colby plus 1 major ASCVD risk facto r, treat ing to a non-H DL-C goal of <100 mg/dL (LDL- C of <70 mg/dL ) is consi dered a thera peuti c optio n. Not Available [address], [address], 02/14/2022 15:05:23 07/26/19 23 07/26/2022 IRON AND TOTAL IRON STEPHEN NG CAPAC ITY iron, total 47 mcg/d L 45-160 normal Not Available [address] [place], [address], 07/26/2022 10:02:24 07/26/19 23 07/26/2022 IRON AND TOTAL IRON STEPHEN NG CAPAC ITY iron binding capacity 365 mcg/d L_(ca lc) 250-45 0 normal Not Available [address] [address] [place], [address], 07/26/2022 10:02:24 07/26/19 23 07/26/2022 IRON AND TOTAL IRON STEPHEN NG CAPAC ITY % saturation 13 %_(ca lc) 16-45 low Not Available [address] [address] [place], [address], 07/26/2022 10:02:24 07/26/19 23 07/26/2022 CBC (INCL UDES DIFF/ PLT) white blood cell count 5.4 thous and/u L 3.8-10 .8 normal Not Available [address] [address] [place], [address], 07/26/2022 10:02:25 07/26/19 23 07/26/2022 CBC (INCL UDES DIFF/ PLT) red blood cell count 4.15 brendan on/uL 3.80-5 .10 normal Not Available [address], [address], 07/26/2022 10:02:25 07/26/19 23 07/26/2022 CBC (INCL UDES DIFF/ PLT) hemoglobin 11.6 g/dL 11.7-1 5.5 low Not Available [address], [address], 07/26/2022 10:02:07/26/1907/26/2022 CBC (INCL UDES DIFF/ PLT) hematocrit 37.1 % 35.0-4 5.0 normal Not Available [address], [address], 07/26/2022 10:02:25 07/26/19 23 07/26/2022 CBC (INCL UDES DIFF/ PLT) MCV 89.4 fL 80.0-1 00.0 normal Not Available [address], [address], 07/26/2022 10:02:25 07/26/1907/26/2022 CBC (INCL UDES DIFF/ PLT) MCH 28.0 pg 27.0-3 3.0 normal Not Available [address], [address], 07/26/2022 10:02:25 07/26/1907/26/2022 CBC (INCL UDES DIFF/ PLT) MCHC 31.3 g/dL 32.0-3 6.0 low Not Available [address], [address], 07/26/2022 10:02:25 07/26/19 23 07/26/2022 CBC (INCL UDES DIFF/ PLT) RDW 13.8 % 11.0-1 5.0 normal Not Available [facility] [address], [address], 07/26/2022 10:02:25 07/26/1907/26/2022 CBC (INCL UDES DIFF/ PLT) platelet count 259 thous and/u L 140-40 0 normal Not Available [address], [address], 07/26/2022 10:02:25 07/26/1907/26/2022 CBC (INCL UDES DIFF/ PLT) MPV 8.9 fL 7.5-12 .5 normal Not Available [address], [address], 07/26/2022 10:02:25 07/26/1907/26/2022 CBC (INCL UDES DIFF/ PLT) absolute neutrophils 2619 cells /uL 1500-7 800 normal Not Available [address], [address], 07/26/2022 10:02:25 07/26/1907/26/2022 CBC (INCL UDES DIFF/ PLT) absolute lymphocytes 1863 cells /uL 850-39 00 normal Not Available [address], [address], 07/26/2022 10:02:25 07/26/1907/26/2022 CBC (INCL UDES DIFF/ PLT) absolute monocytes 410 cells /uL 200-95 0 normal Not Available [facility] [address], [address], 07/26/2022 10:02:25 07/26/1907/26/2022 CBC (INCL UDES DIFF/ PLT) absolute eosinophils 416 cells /uL 15-500 normal Not Available [facility] [address], [address], 07/26/2022 10:02:25 07/26/19 23 07/26/2022 CBC (INCL UDES DIFF/ PLT) absolute basophils 92 cells /uL 0-200 normal Not Available [address], [address], 07/26/2022 10:02:25 07/26/19 23 07/26/2022 CBC (INCL UDES DIFF/ PLT) neutrophils 48.5 % normal Not Available [address], [address], 07/26/2022 10:02:25 07/26/1907/26/2022 CBC (INCL UDES DIFF/ PLT) lymphocytes 34.5 % normal Not Available [address], [address], 07/26/2022 10:02:25 07/26/1907/26/2022 CBC (INCL UDES DIFF/ PLT) monocytes 7.6 % normal Not Available [address], [address], 07/26/2022 10:02:25 07/26/19 23 07/26/2022 CBC (INCL UDES DIFF/ PLT) eosinophils 7.7 % normal Not Available [address], [address], 07/26/2022 10:02:25 07/26/1907/26/2022 CBC (INCL UDES DIFF/ PLT) basophils 1.7 % normal Not Available [address], [address], 07/26/2022 10:02:25 07/26/1907/26/2022 VITAM IN B12 vitamin B12 365 pg/mL 200-11 00 normal Pleas e Note: Altho ugh the refer ence range for vitam in B12 is 200-1 100 pg/mL , it has been repor lon that betwe en 5 and 10% of patie nts with value s betwe en 200 and 400 pg/mL may exper ience neuro psych iatri c and hemat ologi c abnor malit ies due to occul t B12 defic iency ; less than 1% of patie nts with value s above 400 pg/mL will have sympt oms. Not Available [facility] [place] [address] [place], [address], 07/26/2022 10:02:26 02/03/2002/03/2023 LIPID PANEL , STAND ZORA cholesterol, total 205 mg/dL <200 high Not Available [facility] [address] [place] [address] [place], [address], 02/03/2023 04:52:59 02/03/2002/03/2023 LIPID PANEL , STAND ZORA HDL cholesterol 52 mg/dL > or = 50 normal Not Available [facility] [place] [address] [place], [address], 02/03/2023 04:52:59 02/03/20 23 02/03/2023 LIPID PANEL , STAND ZORA triglyceride s 220 mg/dL <150 high If a non-f astin g speci men was colle cted, consi emilio repea t trigl yceri de testi ng on a fasti ng speci men if clini delta indic ated. Naresh khan et al. J. of Clin. Lipid ol. 2015; 9:129 -169. Not Available [facility] [address] [place], [address], 02/03/2023 04:52:59 02/03/2002/03/2023 LIPID PANEL , STAND ZORA LDL-choleste rol 119 mg/dL _(christopher c) high Refer ence range : <100 Mile able range <100 mg/dL for prima ry preve ntion ; <70 mg/dL for patie nts with CHD or diabe tic patie nts with > or = 2 CHD risk facto rs. LDL-C is now calcu lated using the [facility] n-Hop kins mineu lorri n, which is a valid ated novel methdallas lara acy than the Fried esther equat ion in the estim ation of LDL-C . Wendy n SS et al. OYLANDA. 2013; 310(1 9): 2061- 2068 (http ://ed ucati on.Ann Marie Shea jose fmegan [employer]. com/f aq/FA Q164) Not Available [address], [address], 02/03/2023 04:52:59 02/03/20 23 02/03/2023 LIPID PANEL , STAND ZORA chol/HDLC ratio 3.9 (calc ) <5.0 normal Not Available [address], [address], 02/03/2023 04:52:59 02/03/20 23 02/03/2023 LIPID PANEL , STAND ZORA non HDL cholesterol 153 mg/dL _(christopher c) <130 high For patie nts with diabe colby plus 1 major ASCVD risk facto r, treat ing to a non-H DL-C goal of <100 mg/dL (LDL- C of <70 mg/dL ) is consi rea avilao n. Not Available [address], [address], 02/03/2023 04:52:59 02/03/20 23 02/03/2023 COMPR EHENS THIEN METAB OLIC PANEL glucose 95 mg/dL 65-99 normal Fasti ng refer ence inter olayinka Not Available [address], [address], 02/03/2023 04:53:01 02/03/20 23 02/03/2023 COMPR EHENS THIEN METAB OLIC PANEL urea nitrogen (BUN) 15 mg/dL 7-25 normal Not Available [address], [address], 02/03/2023 04:53:01 02/03/20 23 02/03/2023 COMPR EHENS THIEN METAB OLIC PANEL creatinine 1.08 mg/dL 0.60-1 .00 high Not Available [address], [address], 02/03/2023 04:53:01 02/03/20 23 02/03/2023 COMPR EHENS THIEN METAB OLIC PANEL eGFR 54 mL/mi n/1.7 3m2 > or = 60 low Not Available [address], [address], 02/03/2023 04:53:01 02/03/20 23 02/03/2023 COMPR EHENS THIEN METAB OLIC PANEL BUN/creatini ne ratio 14 (calc ) 6-22 normal Not Available [address], [address], 02/03/2023 04:53:01 02/03/20 23 02/03/2023 COMPR EHENS THIEN METAB OLIC PANEL sodium 140 mmol/ L 135-14 6 normal Not Available [address], [address], 02/03/2023 04:53:01 02/03/20 23 02/03/2023 COMPR EHENS THIEN METAB OLIC PANEL potassium 4.2 mmol/ L 3.5-5. 3 normal Not Available [address], [address], 02/03/2023 04:53:01 02/03/20 23 02/03/2023 COMPR EHENS THIEN METAB OLIC PANEL chloride 105 mmol/ L 98-110 normal Not Available [address], [address], 02/03/2023 04:53:01 02/03/20 23 02/03/2023 COMPR EHENS THIEN METAB OLIC PANEL carbon dioxide 27 mmol/ L 20-32 normal Not Available [address], [address], 02/03/2023 04:53:01 02/03/20 23 02/03/2023 COMPR EHENS THIEN METAB OLIC PANEL calcium 8.6 mg/dL 8.6-10 .4 normal Not Available [address], [address], 02/03/2023 04:53:01 02/03/20 23 02/03/2023 COMPR EHENS THIEN METAB OLIC PANEL protein, total 6.6 g/dL 6.1-8. 1 normal Not Available [address], [address], 02/03/2023 04:53:01 02/03/20 23 02/03/2023 COMPR EHENS THIEN METAB OLIC PANEL albumin 3.9 g/dL 3.6-5. 1 normal Not Available [address], [address], 02/03/2023 04:53:01 02/03/20 23 02/03/2023 COMPR EHENS THIEN METAB OLIC PANEL globulin 2.7 g/dL_ (calc ) 1.9-3. 7 normal Not Available [address], [address], 02/03/2023 04:53:01 02/03/20 23 02/03/2023 COMPR EHENS THIEN METAB OLIC PANEL albumin/glob ulin ratio 1.4 (calc ) 1.0-2. 5 normal Not Available [address], [address], 02/03/2023 04:53:01 02/03/20 23 02/03/2023 COMPR EHENS THIEN METAB OLIC PANEL bilirubin, total 0.4 mg/dL 0.2-1. 2 normal Not Available [address], [address], 02/03/2023 04:53:01 02/03/20 23 02/03/2023 COMPR EHENS THIEN METAB OLIC PANEL alkaline phosphatase 74 U/L 37-153 normal Not Available [address], [address], 02/03/2023 04:53:01 02/03/20 23 02/03/2023 COMPR EHENS THIEN METAB OLIC PANEL AST 12 U/L 10-35 normal Not Available [address], [address], 02/03/2023 04:53:01 02/03/20 23 02/03/2023 COMPR EHENS THIEN METAB OLIC PANEL ALT 7 U/L 6-29 normal Not Available [address], [address], 02/03/2023 04:53:01 02/03/20 23 02/03/2023 CBC (INCL UDES DIFF/ PLT) white blood cell count 5.8 thous and/u L 3.8-10 .8 normal Not Available [address], [address], 02/03/2023 04:53:02 02/03/20 23 02/03/2023 CBC (INCL UDES DIFF/ PLT) red blood cell count 4.15 brendan on/uL 3.80-5 .10 normal Not Available [address], [address], 02/03/2023 04:53:02 02/03/20 23 02/03/2023 CBC (INCL UDES DIFF/ PLT) hemoglobin 11.1 g/dL 11.7-1 5.5 low Not Available [address], [address], 02/03/2023 04:53:02 02/03/20 23 02/03/2023 CBC (INCL UDES DIFF/ PLT) hematocrit 35.4 % 35.0-4 5.0 normal Not Available [address], [address], 02/03/2023 04:53:02 02/03/20 23 02/03/2023 CBC (INCL UDES DIFF/ PLT) MCV 85.3 fL 80.0-1 00.0 normal Not Available [address], [address], 02/03/2023 04:53:02 02/03/20 23 02/03/2023 CBC (INCL UDES DIFF/ PLT) MCH 26.7 pg 27.0-3 3.0 low Not Available [address], [address], 02/03/2023 04:53:02 02/03/20 23 02/03/2023 CBC (INCL UDES DIFF/ PLT) MCHC 31.4 g/dL 32.0-3 6.0 low Not Available [address], [address], 02/03/2023 04:53:02 02/03/20 23 02/03/2023 CBC (INCL UDES DIFF/ PLT) RDW 14.5 % 11.0-1 5.0 normal Not Available [address], [address], 02/03/2023 04:53:02 02/03/20 23 02/03/2023 CBC (INCL UDES DIFF/ PLT) platelet count 261 thous and/u L 140-40 0 normal Not Available [address], [address], 02/03/2023 04:53:02 02/03/20 23 02/03/2023 CBC (INCL UDES DIFF/ PLT) MPV 9.3 fL 7.5-12 .5 normal Not Available [address], [address], 02/03/2023 04:53:02 02/03/20 23 02/03/2023 CBC (INCL UDES DIFF/ PLT) absolute neutrophils 2645 cells /uL 1500-7 800 normal Not Available [address], [address], 02/03/2023 04:53:02 02/03/20 23 02/03/2023 CBC (INCL UDES DIFF/ PLT) absolute lymphocytes 2094 cells /uL 850-39 00 normal Not Available [address], [address], 02/03/2023 04:53:02 02/03/20 23 02/03/2023 CBC (INCL UDES DIFF/ PLT) absolute monocytes 435 cells /uL 200-95 0 normal Not Available [address], [address], 02/03/2023 04:53:02 02/03/20 23 02/03/2023 CBC (INCL UDES DIFF/ PLT) absolute eosinophils 499 cells /uL 15-500 normal Not Available [address], [address], 02/03/2023 04:53:02 02/03/20 23 02/03/2023 CBC (INCL UDES DIFF/ PLT) absolute basophils 128 cells /uL 0-200 normal Not Available [address], [address], 02/03/2023 04:53:02 02/03/20 23 02/03/2023 CBC (INCL UDES DIFF/ PLT) neutrophils 45.6 % normal Not Available [address], [address], 02/03/2023 04:53:02 02/03/20 23 02/03/2023 CBC (INCL UDES DIFF/ PLT) lymphocytes 36.1 % normal Not Available [address], [address], 02/03/2023 04:53:02 02/03/20 23 02/03/2023 CBC (INCL UDES DIFF/ PLT) monocytes 7.5 % normal Not Available [address], [address], 02/03/2023 04:53:02 02/03/20 23 02/03/2023 CBC (INCL UDES DIFF/ PLT) eosinophils 8.6 % normal Not Available [address], [address], 02/03/2023 04:53:02 02/03/20 23 02/03/2023 CBC (INCL UDES DIFF/ PLT) basophils 2.2 % normal Not Available [address], [address], 02/03/2023 04:53:02 02/03/20 23 02/03/2023 T4, FREE T4, free 0.9 NG/dL 0.8-1. 8 normal Not Available [address], [address], 02/03/2023 04:53:03 02/03/20 23 02/03/2023 TSH TSH 1.64 mIU/L 0.40-4 .50 normal Not Available [address], [address], 02/03/2023 04:53:04 02/03/20 23 02/03/2023 VITAM IN D,25- OH,TO ANI,I A vitamin D,25-oh,tota l,ia 31 NG/mL 30-100 normal Vitam in D Statu s 25-OH Vitam in D: Defic iency : <20 ng/mL Insuf ficie ncy: 20 - 29 ng/mL Optim al: > or = 30 ng/mL For 25-OH Vitam in D testi ng on patie nts on D2-friedman pplem entat ion and patie nts for whom quant itati on of D2 and D3 fract ions is requi red, the [facility] eD(TM ) 25-OH VIT D, (D2,D 3), LC/MS /MS is recom kanu d: order code 13472 (memo ents >2yrs ). See Note 1 Note 1 For addit ional infor lashae segura refer to http: //padmini Chris stDia gnost ics.c om/fa q/FAQ 199 (This link is being provi ded for infor muna machuca/ educchan villagran purpo ses only. ) Not Available [facility] [address] [place] [address] [place], [address], 02/03/2023 04:53:05 08/14/19 24 08/15/2023 LIPID PANEL , STAND ZORA cholesterol, total 128 mg/dL <200 normal Not Available [facility] [address] [place] [address] [place], [address], 08/15/2023 11:50:25 08/14/19 24 08/15/2023 LIPID PANEL , STAND ZORA HDL cholesterol 56 mg/dL > or = 50 normal Not Available [facility] [address] [place] [address] [place], [address], 08/15/2023 11:50:25 08/14/19 24 08/15/2023 LIPID PANEL , STAND ZORA triglyceride s 229 mg/dL <150 high If a non-f astin g speci men was colle cted, consi emilio repea t trigl yceri de testi ng on a fasti ng speci men if clini delta indic ated. Naresh khan et al. J. of Clin. Lipid ol. 2015; 9:129 -169. Not Available [facility] [address] [place] [address] [place], [address], 08/15/2023 11:50:25 08/14/19 24 08/15/2023 LIPID PANEL , STAND ZORA LDL-choleste rol 43 mg/dL _(christopher c) normal Refer ence range : <100 Mile able range <100 mg/dL for prima ry preve ntion ; <70 mg/dL for patie nts with CHD or diabe tic patie nts with > or = 2 CHD risk facto rs. LDL-C is now calcu lated using the [facility] kins traci blackmon n, which is a valid ated novel metho d donnai iván rojaste r accur acy than the Fried esther equat ion in the estim ation of LDL-C . Wendy oseguera SS et al. YOLANDA. 2013; 310(1 9): 2061- 2068 (http ://ed ucati on.Qu estDi [employer]. com/f aq/FA Q164) Not Available [facility] [address], [address], 08/15/2023 11:50:25 08/14/19 24 08/15/2023 LIPID PANEL , STAND ZORA chol/HDLC ratio 2.3 (calc ) <5.0 normal Not Available [address], [address], 08/15/2023 11:50:25 08/14/19 24 08/15/2023 LIPID PANEL , STAND ZORA non HDL cholesterol 72 mg/dL _(christopher c) <130 normal For patie nts with diabe colby plus 1 major ASCVD risk facto r, treat ing to a non-H DL-C goal of <100 mg/dL (LDL- C of <70 mg/dL ) is consi markd a tima gilson herrera optio n. Not Available [facility] [address] [address] [place], [address], 08/15/2023 11:50:25 08/14/19 24 08/15/2023 COMPR EHENS THIEN METAB OLIC PANEL glucose 95 mg/dL 65-99 normal Fasti ng refer ence inter olayinka Not Available [facility] [place] [address] [place], [address], 08/15/2023 11:50:26 08/14/19 24 08/15/2023 COMPR EHENS THIEN METAB OLIC PANEL urea nitrogen (BUN) 15 mg/dL 7-25 normal Not Available [address] [place], [address], 08/15/2023 11:50:26 08/14/19 24 08/15/2023 COMPR EHENS THIEN METAB OLIC PANEL creatinine 1.17 mg/dL 0.60-1 .00 high Not Available [address], [address], 08/15/2023 11:50:26 08/14/19 24 08/15/2023 COMPR EHENS THIEN METAB OLIC PANEL eGFR 49 mL/mi n/1.7 3m2 > or = 60 low Not Available [address], [address], 08/15/2023 11:50:26 08/14/19 24 08/15/2023 COMPR EHENS THIEN METAB OLIC PANEL BUN/creatini ne ratio 13 (calc ) 6-22 normal Not Available [address], [address], 08/15/2023 11:50:26 08/14/19 24 08/15/2023 COMPR EHENS THIEN METAB OLIC PANEL sodium 141 mmol/ L 135-14 6 normal Not Available [address], [address], 08/15/2023 11:50:26 08/14/19 24 08/15/2023 COMPR EHENS THIEN METAB OLIC PANEL potassium 4.4 mmol/ L 3.5-5. 3 normal Not Available [address], [address], 08/15/2023 11:50:26 08/14/19 24 08/15/2023 COMPR EHENS THIEN METAB OLIC PANEL chloride 106 mmol/ L 98-110 normal Not Available [address], [address], 08/15/2023 11:50:26 08/14/19 24 08/15/2023 COMPR EHENS THIEN METAB OLIC PANEL carbon dioxide 26 mmol/ L 20-32 normal Not Available [address], [address], 08/15/2023 11:50:26 08/14/19 24 08/15/2023 COMPR EHENS THIEN METAB OLIC PANEL calcium 9.1 mg/dL 8.6-10 .4 normal Not Available [address], [address], 08/15/2023 11:50:26 08/14/19 24 08/15/2023 COMPR EHENS THIEN METAB OLIC PANEL protein, total 6.6 g/dL 6.1-8. 1 normal Not Available [address], [address], 08/15/2023 11:50:26 08/14/19 24 08/15/2023 COMPR EHENS THIEN METAB OLIC PANEL albumin 3.9 g/dL 3.6-5. 1 normal Not Available [address], [address], 08/15/2023 11:50:26 08/14/19 24 08/15/2023 COMPR EHENS THIEN METAB OLIC PANEL globulin 2.7 g/dL_ (calc ) 1.9-3. 7 normal Not Available [address], [address], 08/15/2023 11:50:26 08/14/19 24 08/15/2023 COMPR EHENS THIEN METAB OLIC PANEL albumin/glob ulin ratio 1.4 (calc ) 1.0-2. 5 normal Not Available [address], [address], 08/15/2023 11:50:26 08/14/19 24 08/15/2023 COMPR EHENS THIEN METAB OLIC PANEL bilirubin, total 0.4 mg/dL 0.2-1. 2 normal Not Available [address], [address], 08/15/2023 11:50:26 08/14/19 24 08/15/2023 COMPR EHENS THIEN METAB OLIC PANEL alkaline phosphatase 65 U/L 37-153 normal Not Available [facility] [employer] [address], [address], 08/15/2023 11:50:26 08/14/19 24 08/15/2023 COMPR EHENS THIEN METAB OLIC PANEL AST 17 U/L 10-35 normal Not Available [address], [address], 08/15/2023 11:50:26 08/14/19 24 08/15/2023 COMPR EHENS THIEN METAB OLIC PANEL ALT 11 U/L 6-29 normal Not Available [address], [address], 08/15/2023 11:50:26 08/14/19 24 08/15/2023 CBC (INCL UDES DIFF/ PLT) white blood cell count 6.3 thous and/u L 3.8-10 .8 normal Not Available [address], [address], 08/15/2023 11:50:27 08/14/19 24 08/15/2023 CBC (INCL UDES DIFF/ PLT) red blood cell count 4.03 brendan on/uL 3.80-5 .10 normal Not Available [address], [address], 08/15/2023 11:50:27 08/14/19 24 08/15/2023 CBC (INCL UDES DIFF/ PLT) hemoglobin 11.0 g/dL 11.7-1 5.5 low Not Available [facility] [address], [address], 08/15/2023 11:50:27 08/14/19 24 08/15/2023 CBC (INCL UDES DIFF/ PLT) hematocrit 34.4 % 35.0-4 5.0 low Not Available [address], [address], 08/15/2023 11:50:27 08/14/19 24 08/15/2023 CBC (INCL UDES DIFF/ PLT) MCV 85.4 fL 80.0-1 00.0 normal Not Available [address], [address], 08/15/2023 11:50:27 08/14/19 24 08/15/2023 CBC (INCL UDES DIFF/ PLT) MCH 27.3 pg 27.0-3 3.0 normal Not Available [address], [address], 08/15/2023 11:50:27 08/14/19 24 08/15/2023 CBC (INCL UDES DIFF/ PLT) MCHC 32.0 g/dL 32.0-3 6.0 normal Not Available [address], [address], 08/15/2023 11:50:27 08/14/19 24 08/15/2023 CBC (INCL UDES DIFF/ PLT) RDW 14.8 % 11.0-1 5.0 normal Not Available [address], [address], 08/15/2023 11:50:27 08/14/19 24 08/15/2023 CBC (INCL UDES DIFF/ PLT) platelet count 230 thous and/u L 140-40 0 normal Not Available [address], [address], 08/15/2023 11:50:27 08/14/19 24 08/15/2023 CBC (INCL UDES DIFF/ PLT) MPV 9.4 fL 7.5-12 .5 normal Not Available [address], [address], 08/15/2023 11:50:27 08/14/19 24 08/15/2023 CBC (INCL UDES DIFF/ PLT) absolute neutrophils 2930 cells /uL 1500-7 800 normal Not Available [address], [address], 08/15/2023 11:50:27 08/14/19 24 08/15/2023 CBC (INCL UDES DIFF/ PLT) absolute lymphocytes 2300 cells /uL 850-39 00 normal Not Available [address], [address], 08/15/2023 11:50:27 08/14/19 24 08/15/2023 CBC (INCL UDES DIFF/ PLT) absolute monocytes 504 cells /uL 200-95 0 normal Not Available [address], [address], 08/15/2023 11:50:27 08/14/19 24 08/15/2023 CBC (INCL UDES DIFF/ PLT) absolute eosinophils 485 cells /uL 15-500 normal Not Available [address], [address], 08/15/2023 11:50:27 08/14/19 24 08/15/2023 CBC (INCL UDES DIFF/ PLT) absolute basophils 82 cells /uL 0-200 normal Not Available [facility] [address], [address], 08/15/2023 11:50:27 08/14/19 24 08/15/2023 CBC (INCL UDES DIFF/ PLT) neutrophils 46.5 % normal Not Available [address], [address], 08/15/2023 11:50:27 08/14/19 24 08/15/2023 CBC (INCL UDES DIFF/ PLT) lymphocytes 36.5 % normal Not Available [address], [address], 08/15/2023 11:50:27 08/14/19 24 08/15/2023 CBC (INCL UDES DIFF/ PLT) monocytes 8.0 % normal Not Available [address], [address], 08/15/2023 11:50:27 08/14/19 24 08/15/2023 CBC (INCL UDES DIFF/ PLT) eosinophils 7.7 % normal Not Available [address], [address], 08/15/2023 11:50:27 08/14/19 24 08/15/2023 CBC (INCL UDES DIFF/ PLT) basophils 1.3 % normal Not Available [address], [address], 08/15/2023 11:50:27 08/14/19 24 08/15/2023 T4, FREE T4, free 1.0 NG/dL 0.8-1. 8 normal Not Available [address], [address], 08/15/2023 11:50:28 08/14/19 24 08/15/2023 TSH TSH 0.86 mIU/L 0.40-4 .50 normal Not Available [address], [address], 08/15/2023 11:50:29 02/03/20 24 02/04/2024 LIPID PANEL , STAND ZORA cholesterol, total 179 mg/dL <200 normal Not Available [address], [address], 02/04/2024 11:05:50 02/03/20 24 02/04/2024 LIPID PANEL , STAND ZORA HDL cholesterol 50 mg/dL > or = 50 normal Not Available [address] [address] [address] [place], [address], 02/04/2024 11:05:50 02/03/20 24 02/04/2024 LIPID PANEL , STAND ZORA triglyceride s 190 mg/dL <150 high Not Available [facility] [address] [address] [place], [address], 02/04/2024 11:05:50 02/03/20 24 02/04/2024 LIPID PANEL , STAND ZORA LDL-choleste rol 101 mg/dL _(christopher c) high Refer ence range : <100 Mile able range <100 mg/dL for prima ry preve ntion ; <70 mg/dL for patie nts with CHD or diabe tic patie nts with > or = 2 CHD risk facto rs. LDL-C is now calcu lated using the Wendy oseguera-Hop kins mineu lorri n, which is a valid ated novel metho d provi ding harpreet r accur acy than the Fried esther equat ion in the estim ation of LDL-C . Wendy oseguera SS et al. YOLANDA. 2013; 310(1 9): 2061- 2068 (http ://ed ucati on.Qu Shabbir [employer]. com/f aq/FA Q164) Not Available [address] [address] [place], [address], 02/04/2024 11:05:50 02/03/20 24 02/04/2024 LIPID PANEL , STAND ZORA chol/HDLC ratio 3.6 (calc ) <5.0 normal Not Available [facility] [id number] [place] [address], [address], 02/04/2024 11:05:50 02/03/20 24 02/04/2024 LIPID PANEL , STAND ZORA non HDL cholesterol 129 mg/dL _(christopher c) <130 normal For patie nts with diabe colby plus 1 major ASCVD risk facto r, treat ing to a non-H DL-C goal of <100 mg/dL (LDL- C of <70 mg/dL ) is brigette herrera optio n. Not Available [address], [address], 02/04/2024 11:05:50 02/03/20 24 02/04/2024 COMPR EHENS THIEN METAB OLIC PANEL glucose 95 mg/dL 65-99 normal Fasti ng refer ence inter olayinka Not Available [address], [address], 02/04/2024 11:05:52 02/03/20 24 02/04/2024 COMPR EHENS THIEN METAB OLIC PANEL urea nitrogen (BUN) 16 mg/dL 7-25 normal Not Available [address], [address], 02/04/2024 11:05:52 02/03/20 24 02/04/2024 COMPR EHENS THIEN METAB OLIC PANEL creatinine 1.21 mg/dL 0.60-1 .00 high Not Available [address], [address], 02/04/2024 11:05:52 02/03/20 24 02/04/2024 COMPR EHENS THIEN METAB OLIC PANEL eGFR 47 mL/mi n/1.7 3m2 > or = 60 low Not Available [address], [address], 02/04/2024 11:05:52 02/03/20 24 02/04/2024 COMPR EHENS THIEN METAB OLIC PANEL BUN/creatini ne ratio 13 (calc ) 6-22 normal Not Available [address], [address], 02/04/2024 11:05:52 02/03/20 24 02/04/2024 COMPR EHENS THIEN METAB OLIC PANEL sodium 139 mmol/ L 135-14 6 normal Not Available [address], [address], 02/04/2024 11:05:52 02/03/20 24 02/04/2024 COMPR EHENS THIEN METAB OLIC PANEL potassium 4.3 mmol/ L 3.5-5. 3 normal Not Available [address], [address], 02/04/2024 11:05:52 02/03/20 24 02/04/2024 COMPR EHENS THIEN METAB OLIC PANEL chloride 107 mmol/ L 98-110 normal Not Available [address], [address], 02/04/2024 11:05:52 02/03/20 24 02/04/2024 COMPR EHENS THIEN METAB OLIC PANEL carbon dioxide 25 mmol/ L 20-32 normal Not Available [address], [address], 02/04/2024 11:05:52 02/03/20 24 02/04/2024 COMPR EHENS THIEN METAB OLIC PANEL calcium 8.7 mg/dL 8.6-10 .4 normal Not Available [address], [address], 02/04/2024 11:05:52 02/03/20 24 02/04/2024 COMPR EHENS THIEN METAB OLIC PANEL protein, total 6.5 g/dL 6.1-8. 1 normal Not Available [address], [address], 02/04/2024 11:05:52 02/03/20 24 02/04/2024 COMPR EHENS THIEN METAB OLIC PANEL albumin 3.8 g/dL 3.6-5. 1 normal Not Available [address], [address], 02/04/2024 11:05:52 02/03/20 24 02/04/2024 COMPR EHENS THIEN METAB OLIC PANEL globulin 2.7 g/dL_ (calc ) 1.9-3. 7 normal Not Available [address], [address], 02/04/2024 11:05:52 02/03/20 24 02/04/2024 COMPR EHENS THIEN METAB OLIC PANEL albumin/glob ulin ratio 1.4 (calc ) 1.0-2. 5 normal Not Available [address], [address], 02/04/2024 11:05:52 02/03/20 24 02/04/2024 COMPR EHENS THIEN METAB OLIC PANEL bilirubin, total 0.4 mg/dL 0.2-1. 2 normal Not Available [address], [address], 02/04/2024 11:05:52 02/03/20 24 02/04/2024 COMPR EHENS THIEN METAB OLIC PANEL alkaline phosphatase 80 U/L 37-153 normal Not Available [address], [address], 02/04/2024 11:05:52 02/03/20 24 02/04/2024 COMPR EHENS THIEN METAB OLIC PANEL AST 15 U/L 10-35 normal Not Available [address], [address], 02/04/2024 11:05:52 02/03/20 24 02/04/2024 COMPR EHENS THIEN METAB OLIC PANEL ALT 11 U/L 6-29 normal Not Available [address], [address], 02/04/2024 11:05:52 02/03/20 24 02/04/2024 CBC (INCL UDES DIFF/ PLT) white blood cell count 5.8 thous and/u L 3.8-10 .8 normal Not Available [address], [address], 02/04/2024 11:05:53 02/03/20 24 02/04/2024 CBC (INCL UDES DIFF/ PLT) red blood cell count 3.98 brendan on/uL 3.80-5 .10 normal Not Available [address], [address], 02/04/2024 11:05:53 02/03/20 24 02/04/2024 CBC (INCL UDES DIFF/ PLT) hemoglobin 11.1 g/dL 11.7-1 5.5 low Not Available [address], [address], 02/04/2024 11:05:53 02/03/20 24 02/04/2024 CBC (INCL UDES DIFF/ PLT) hematocrit 34.8 % 35.0-4 5.0 low Not Available [address], [address], 02/04/2024 11:05:53 02/03/20 24 02/04/2024 CBC (INCL UDES DIFF/ PLT) MCV 87.4 fL 80.0-1 00.0 normal Not Available [address], [address], 02/04/2024 11:05:53 02/03/20 24 02/04/2024 CBC (INCL UDES DIFF/ PLT) MCH 27.9 pg 27.0-3 3.0 normal Not Available [address], [address], 02/04/2024 11:05:53 02/03/20 24 02/04/2024 CBC (INCL UDES DIFF/ PLT) MCHC 31.9 g/dL 32.0-3 6.0 low For adult s, a sligh t decre ase in the calcu lated MCHC value (in the range of 30 to 32 g/dL) is most likel y not clini [facility]; [facility] er, it shoul d be inter prete d with cauti on in [facility] n with other red cell kera eters and the patie nt's clini christopher condi tion. Not Available [address], [address], 02/04/2024 11:05:53 02/03/20 24 02/04/2024 CBC (INCL UDES DIFF/ PLT) RDW 13.9 % 11.0-1 5.0 normal Not Available [facility] [address], [address], 02/04/2024 11:05:53 02/03/20 24 02/04/2024 CBC (INCL UDES DIFF/ PLT) platelet count 270 thous and/u L 140-40 0 normal Not Available [address], [address], 02/04/2024 11:05:53 02/03/20 24 02/04/2024 CBC (INCL UDES DIFF/ PLT) MPV 9.9 fL 7.5-12 .5 normal Not Available [address], [address], 02/04/2024 11:05:53 02/03/20 24 02/04/2024 CBC (INCL UDES DIFF/ PLT) absolute neutrophils 2604 cells /uL 1500-7 800 normal Not Available [facility] [address], [address], 02/04/2024 11:05:53 02/03/20 24 02/04/2024 CBC (INCL UDES DIFF/ PLT) absolute lymphocytes 2198 cells /uL 850-39 00 normal Not Available [facility] [address], [address], 02/04/2024 11:05:53 02/03/20 24 02/04/2024 CBC (INCL UDES DIFF/ PLT) absolute monocytes 429 cells /uL 200-95 0 normal Not Available [address], [address], 02/04/2024 11:05:53 02/03/20 24 02/04/2024 CBC (INCL UDES DIFF/ PLT) absolute eosinophils 447 cells /uL 15-500 normal Not Available [address], [address], 02/04/2024 11:05:53 02/03/20 24 02/04/2024 CBC (INCL UDES DIFF/ PLT) absolute basophils 122 cells /uL 0-200 normal Not Available [address], [address], 02/04/2024 11:05:53 02/03/20 24 02/04/2024 CBC (INCL UDES DIFF/ PLT) neutrophils 44.9 % normal Not Available [address], [address], 02/04/2024 11:05:53 02/03/20 24 02/04/2024 CBC (INCL UDES DIFF/ PLT) lymphocytes 37.9 % normal Not Available [address], [address], 02/04/2024 11:05:53 02/03/20 24 02/04/2024 CBC (INCL UDES DIFF/ PLT) monocytes 7.4 % normal Not Available [address], [address], 02/04/2024 11:05:53 02/03/20 24 02/04/2024 CBC (INCL UDES DIFF/ PLT) eosinophils 7.7 % normal Not Available [address], [address], 02/04/2024 11:05:53 02/03/20 24 02/04/2024 CBC (INCL UDES DIFF/ PLT) basophils 2.1 % normal Not Available [address], [address], 02/04/2024 11:05:53 02/03/20 24 02/04/2024 T4, FREE T4, free 1.0 NG/dL 0.8-1. 8 normal Not Available [address], [address], 02/04/2024 11:05:54 02/03/20 24 02/04/2024 TSH TSH 1.10 mIU/L 0.40-4 .50 normal Not Available [address], [address], 02/04/2024 11:05:56 03/30/19 25 03/31/2024 RENAL FUNCT ION PANEL glucose 99 mg/dL 65-99 normal Fasti ng refer ence inter olayinka Not Available [address], [address], 03/31/2024 06:01:53 03/30/19 25 03/31/2024 RENAL FUNCT ION PANEL urea nitrogen (BUN) 18 mg/dL 7-25 normal Not Available [address], [address], 03/31/2024 06:01:53 03/30/19 25 03/31/2024 RENAL FUNCT ION PANEL creatinine 1.24 mg/dL 0.60-1 .00 high Not Available [address], [address], 03/31/2024 06:01:53 03/30/19 25 03/31/2024 RENAL FUNCT ION PANEL eGFR 45 mL/mi n/1.7 3m2 > or = 60 low Not Available [address], [address], 03/31/2024 06:01:53 03/30/1903/31/2024 RENAL FUNCT ION PANEL BUN/creatini ne ratio 15 (calc ) 6-22 normal Not Available [address], [address], 03/31/2024 06:01:53 03/30/1903/31/2024 RENAL FUNCT ION PANEL sodium 139 mmol/ L 135-14 6 normal Not Available [address], [address], 03/31/2024 06:01:53 03/30/1903/31/2024 RENAL FUNCT ION PANEL potassium 4.3 mmol/ L 3.5-5. 3 normal Not Available [address], [address], 03/31/2024 06:01:53 03/30/1903/31/2024 RENAL FUNCT ION PANEL chloride 104 mmol/ L 98-110 normal Not Available [address], [address], 03/31/2024 06:01:53 03/30/1903/31/2024 RENAL FUNCT ION PANEL carbon dioxide 29 mmol/ L 20-32 normal Not Available [address], [address], 03/31/2024 06:01:53 03/30/1903/31/2024 RENAL FUNCT ION PANEL calcium 9.1 mg/dL 8.6-10 .4 normal Not Available [address], [address], 03/31/2024 06:01:53 03/30/1903/31/2024 RENAL FUNCT ION PANEL phosphate ( phosphorus) 4.3 mg/dL 2.1-4. 3 normal Not Available [address], [address], 03/31/2024 06:01:53 03/30/19 25 03/31/2024 RENAL FUNCT ION PANEL albumin 4.0 g/dL 3.6-5. 1 normal Not Available [facility] [address] [place], [address], 03/31/2024 06:01:53 02/26/20 22 02/25/2022 DEXA No observ ation record ed. [id number] [facility] [address], [place], [address], 05/14/2022 12:59:31 10/16/19 23 10/15/2022 MAMMO , scree [place], digit al, bilat eral No observ ation record ed. [address], [place], [address], 10/15/2022 16:57:28 10/17/19 23 10/15/2022 MAMMO , scree [place], digit al, bilat eral No observ ation record ed. [place] [id number] [facility] [address], [place], [address], 10/17/2022 08:30:27 10/05/19 24 10/05/2023 MRI, knee, w/o contr ast No observ ation record ed. [address] [facility] [address], [place], [address], 10/05/2023 17:52:27 Result Notes None recorded. Problems Name Problem SNOMED Code Status Onset Date Resolution Date Notes Provider Name and Address Organization Details Recorded Time Irritable bowel syndrome 47191948 Active Not Available [facility] 3 12:55:23 Benign essential hypertensi on 6462034 Active Not Available [facility] 3 12:55:23 Right flank pain 924403830 Active 2016 Not Available [facility] 3 12:55:23 Chest pain 40039571 Active Not Available [facility] 3 12:55:23 Current tear of medial cartilage AND/OR meniscus of knee Active Not Available [facility] 3 12:55:23 Current tear of lateral cartilage AND/OR meniscus of knee Active Not Available [facility] 3 12:55:23 Vitamin D deficiency 88725590 Active 2021 Not Available [facility] 3 12:55:23 Osteoarthr itis 824441739 Active Not Available [facility] 3 12:55:23 Obesity 383747503 Active Not Available [facility] 3 12:55:23 Carpal tunnel syndrome 16486032 Active Not Available [facility] 3 12:55:23 Derangemen t of knee 93001745 Active Not Available [facility] 3 12:55:23 Meralgia parestheti ca 19544378 Active Not Available [facility] 3 12:55:23 Obese class II 5553654525648 05 Active 2022 Adrian Mohr MD [address], [place], [address] , [facility] 3 10:59:44 Pica 67072236 Active 2022 Adrian Mohr MD [address], [address], [place], [address] , [facility] 3 11:01:01 Hyperchole sterolemia 14809107 Active 2023 Adrian Mohr MD [address], [address], [place], [address] , [facility] 4 10:41:19 Coronary arterioscl erosis 76971257 Active 2023 Adrian Mohr MD [address], [place], [address] , [facility] 4 11:04:06 Osteoporos is 40549817 Active 2023 Jyoti polanco, [facility] 4 11:18:50 Serum creatinine above reference range 189968779 Active 2023 Shweta BrockROCHELLE null, [facility] 4 15:57:26 Chronic renal failure 10980229 Active 2024 Shweta BrockROCHELLE null, [facility] 5 12:36:18 Problem Notes None recorded. Procedures Surgical History Date Name Laterality Status Provider Name and Address Organization Details Recorded Time 4 Medicare Wellness CPT Code, subsequent completed Reva Ohara RN [facility] 02/02/2024 10:58:48 3 Medicare Wellness CPT Code, subsequent completed Reva Ohara RN [facility] 01/27/2023 10:59:11 0 Most Recent Bone Density completed Not Available [facility] 05/14/2022 12:53:07 Imaging Results Imaging Date Name Status LastModified by Organiz ation Details LastModified Time 02/25/2022 DEXA completed [id number] [facility] [address], [place], [address], 05/14/2022 12:59:31 10/15/2022 MAMMO, screening, digital, bilateral completed [address], [place], [address], 10/15/2022 16:57:28 10/15/2022 MAMMO, screening, digital, bilateral [place] [address] [facility] [address], [place], [address], 10/17/2022 08:30:27 10/05/2023 MRI, knee, w/o contrast completed [address], [place], [address], 10/05/2023 17:52:27 Procedure Notes None recorded. Medical Equipment None Reported. Allergies Allergen ID Allergen Name Allergen Category Reaction Reaction Severity Criticality Documentation Date Start Date Code Code System Note Provider Name and Address Organization Details Recorded Time 81601 codeine medicatio n other Not available Not available 05/14/2022 2670 RxNorm anxie ty Shwetarm Gutiérrez, ROCHELLE null, [employer] 4 15:30:35 78115 Aleve medicatio n nausea Not available Not available 05/14/2022 30457 1 RxNorm Not Available [facility] 3 12:59:20 [address]97[address] Product containin g 3-hydroxy -3-methyl glutaryl- coenzyme A reductase inhibitor (product) medicatio n myalgias (muscle pain) mild low 02/02/2024 84681 009 SNSHIKHA Mohr MD [address] [facility] [address], [place], [address] [facility] [employer] 4 11:05:07 Medications Name Sig Start Date Stop Date Status Note LastModified by Organization Details LastModified Time amoxicillin 500 mg capsule TAKE FOUR CAPSULES BY MOUTH ONE HOUR BEFORE APPOINTME NT active Not Available Not Available No t Available prednisone 10 mg tablet TAKE 1 TABLET BY MOUTH TWICE DAILY active Not Available Not Available No t Available atorvastati n 20 mg tablet TAKE 1 TABLET BY MOUTH ONCE DAILY 02/01 completed Not Available Not Available Not Available azithromyci n 250 mg tablet TAKE 2 TABLETS BY MOUTH ON DAY 1, AND THEN TAKE 1 TABLET BY MOUTH ONCE A DAY ON DAY 2 THROUGH DAY 5 01/21 completed Not Available Not Available Not Available lisinopril 20 mg tablet TAKE 1 TABLET BY MOUTH ONCE DAILY active Not Available Not Available No t Available prednisone 20 mg tablet TAKE 2 TABLETS BY MOUTH ONCE DAILY WITH FOOD FOR 5 DAYS 01/21 completed Not Available Not Available Not Available Zestoretic 20 mg-12.5 mg tablet Take 1 tablet every day by oral route. 2012 active Not Available Not Available Not Avai lable Ultram 50 mg tablet Take 1 tablet(s) EVERY 6 HOURS by oral route for pain active Not Available Not Available No t Available aspirin 81 mg tablet,etta yed release Take 1 tablet every day by oral route. active Not Available Not Available No t Available ketorolac 0.5 % eye drops INSTILL 1 DROP INTO OPERATIVE EYE THREE TIMES DAILY STARTING 2 DAYS BEFORE SURGERY. CONTINUE FOR 2 WEEKS AFTER. 01/27 completed Not Available Not Available Not Available Tessalon Perles 100 mg capsule Take 1 capsule 3 times a day by oral route. active Not Available Not Available No t Available prednisolon e acetate 1 % eye drops,suspe nsion INSTILL 1 DROP INTO OPERATIVE EYE THREE TIMES DAILY STARTING AFTER SURGERY. CONTINUE FOR 3 WEEKS. 01/27 completed Not Available Not Available Not Available ciprofloxac in 0.3 % eye drops INSTILL 1 DROP INTO AFFECTED EYE THREE TIMES DAILY 01/27 completed Not Available Not Available Not Available conjugated estrogens 0.625 mg/gram vaginal cream Insert 0.5 applicato rsful every day by vaginal route. active Not Available Not Available No t Available Levaquin 500 mg tablet Take 1 tablet every 24 hours by oral route. active Not Available Not Available No t Available estradiol 0.01% (0.1 mg/gram) vaginal cream active Not Available Not Available Not Available rosuvastati n 10 mg tablet TAKE 1 TABLET BY MOUTH ONCE DAILY 02/01 completed Not Available Not Available Not Available aspirin 07/22 completed Not Available Not Available Not Available ID NOW COVID-19 Test Kit TEST DIRECTED TODAY 03/05 completed Not Available Not Available Not Available Vitals Date Recorded Body mass index (BMI) Body height Heart rate Body temperature Body weight Systolic blood pressure Diastolic blood pressure Provider Name and Address Organization Details Last Updated DateTime 2 35.8 kg/m2 160.02 cm 89 /min 97.9 [degF] 09324.6 6 g 120 mm[Hg] 66 mm[Hg] Not Available [facility] 3 12:54:06 Date Recorded Body height Body mass index (BMI) Body weight Heart rate Body temperature Oxygen saturation Oxygen saturation in Arterial blood by Pulse oximetry Systolic blood pressure Diastolic blood pressure Provider Name and Address Organization Details Last Updated DateTime 3 160.02 cm 35.8 kg/m2 14852.6 6 g 90 /min 97 [degF] 98 % 98 % 120 mm[Hg] 64 mm[Hg] Jyoti [facility] [employer] [facility] 3 10:40:53 Date Recorded Body height Body mass index (BMI) Body weight Heart rate Body temperature Oxygen saturation Oxygen saturation in Arterial blood by Pulse oximetry Systolic blood pressure Diastolic blood pressure Provider Name and Address Organization Details Last Updated DateTime 3 160.02 cm 36.8 kg/m2 43154.2 1 g 86 /min 97 [degF] 98 % 98 % 122 mm[Hg] 58 mm[Hg] Jyoti [facility] [employer] [facility] 3 10:51:37 Date Recorded Body height Body mass index (BMI) Body weight Heart rate Body temperature Oxygen saturation Oxygen saturation in Arterial blood by Pulse oximetry Systolic blood pressure Diastolic blood pressure Provider Name and Address Organization Details Last Updated DateTime 4 160.02 cm 36 kg/m2 29901.2 5 g 85 /min 97 [degF] 97 % 97 % 120 mm[Hg] 62 mm[Hg] Jyoti Mark [place] [facility] [employer] [facility] 4 10:38:09 Date Recorded Body height Body mass index (BMI) Body weight Heart rate Body temperature Oxygen saturation Oxygen saturation in Arterial blood by Pulse oximetry Systolic blood pressure Diastolic blood pressure Provider Name and Address Organization Details Last Updated DateTime 4 160.02 cm 36.3 kg/m2 87985.4 4 g 77 /min 97 [degF] 98 % 98 % 124 mm[Hg] 70 mm[Hg] LEONORA Pro [facility] [employer] [facility] 4 10:43:21 Social History Question Answer Notes LastModified by Organizat ion Details LastModified Time Tobacco Smoking Status Never Smoker Not Available [facility] 05/14/2022 12:52:54 Do You Have An Advance Directive? Yes [id number].26026 [id number] Information not available 05/14/2022 What Is Your Level Of Alcohol Consumption? Occasional MIGRATION.92133 11991 Information not available 05/14/2022 Are You Blind Or Do You Have Difficulty Seeing? No MIGRATION.57023 84968 Information not available 05/14/2022 Are You Deaf Or Do You Have Serious Difficulty Hearing? No MIGRATION.77075 72976 Information not available 05/14/2022 What Type Of Diet Are You Following? REGULAR MIGRATION.41264 39525 Information not available 05/14/2022 Do You Or Have You Ever Used E-cigarettes Or Vape? Never Used Electronic Cigarettes MIGRATION.78195 11195 Information not available 05/14/2022 Have There Been Any Changes To Your Family Or Social Situation? No MIGRATION.61326 21331 Information not available 05/14/2022 What Is The Fluoride Status Of Your Home? Unknown MIGRATION.76030 93953 Information not available 05/14/2022 Are There Any Guns Present In Your Home? No MIGRATION.78768 59490 Information not available 05/14/2022 Do You Use Insect Repellent Routinely? No MIGRATION.14107 97054 Information not available 05/14/2022 Where Do You Live? Single[place]House MIGRATION.27882 94207 Information not available 05/14/2022 Guns Present In The Home? No [email or web address] Information not available 01/27/2023 Are You Able To Care For Yourself? Yes [email or web address] Information not available 01/27/2023 Are You Blind Or Do Yo Have Difficulty Seeing? No [email or web address] Information not available 01/27/2023 Are You Deaf Or Do You Have Serious Difficulty Hearing? No Information not available 01/27/2023 Live Alone Of With Others? Alone [email or web address] Information not available 01/27/2023 Do You Have A Medical Power Of Office Machine Technician? Yes [email or web address] Information not available 01/27/2023 What Was The Date Of Your Most Recent Tobacco Screening? 02/02/2024 [email or web address] Information not available 02/02/2024 Do You Have Any Pets? No MIGRATION.21159 36256 Information not available 05/14/2022 What Is Your Relationship Status? MIGRATION.46254 24266 Information not available 05/14/2022 Do You Use Your Seat Belt Or Car Seat Routinely? Yes [email or web address] Information not available 01/27/2023 Do You Have Smoke And Carbon Monoxide Detectors In Your Home? Yes MIGRATION.91200 62647 Information not available 05/14/2022 Are You Passively Exposed To Smoke? No MIGRATION.16108 42842 Information not available 05/14/2022 Do You Or Have You Ever Used Smokeless Tobacco? Never Used Smokeless Tobacco MIGRATION.50065 79181 Information not available 05/14/2022 Are There Any Smokers In Your House? No MIGRATION.47615 07785 Information not available 05/14/2022 Do You Use Sunscreen Routinely? No MIGRATION.56733 42499 Information not available 05/14/2022 Do You Have Any Dietary Restrictions? No MIGRATION.66983 23063 Information not available 05/14/2022 Sex: Unknown Functional Status Question Answer Note LastModified by Organizat ion Details LastModified Time Do you have difficulty walking or climbing stairs? No MIGRATION.[id number] 026 Information not available 05/14/2022 Do you have transportation difficulties? No MIGRATION.7514495 026 Information not available 05/14/2022 Are you able to walk? YESWOREST MIGRATION.5933290 026 Information not available 05/14/2022 Do you have difficulty doing errands alone? No MIGRATION.0172120 026 Information not available 05/14/2022 Are you able to care for yourself? Yes MIGRATION.5901920 026 Information not available 05/14/2022 Do you have difficulty dressing or bathing? No MIGRATION.5437640 026 Information not available 05/14/2022 What is your exercise level? Occasional MIGRATION.9881840 026 Information not available 05/14/2022 Mental Status Question Answer Note LastModified by Organizat ion Details LastModified Time Do you have difficulty concentrating, remembering or making decisions? No MIGRATION.[id number] 6 Information not available 05/14/2022 Family History Nothing Reported Notes:Mother 85 ASHD Fa ther at 67 from [place] of Lung Three brothers. all pneumonia(1) RA(1) COPD(1), CAD(1) Six sisters. Three MVA(1) CAD(2) Medical History Condition Response NERVE DISEASE N BLINDNESS N RHEUMATIC FEVER N KIDNEY STONES N BLADDER PROBLEMS N MRSA N OTHER # 1 N POLIO N LUNG DISEASE/DISORDER N HISTORY OF DRUG ABUSE N RADIATION / CHEMOTHERAPY N COPD N Other # 2 N BLOOD DISEASES N EAR OR HEARING PROBLEMS N MUMPS N SHINGLES N BOWEL PROBLEMS Y DEPRESSION (INCLUDING POST ) N STROKE/TIA N ULCERS N BENIGN PROSTATIC HYPERPLASIA N MEASLES N HYPOTENSION N MYOCARDIAL INFARCTION N OBESITY N GERD/NAUSEA N ANEURYSM N URINARY/BLADDER/KIDNEY PROBLEMS N CORONARY ARTERY DISEASE (CAD) N ADDICTION CONCERNS N ENDOMETRIOSIS N Impotence N USE OF BLOOD THINNERS N SKIN PROBLEMS N GASTROINTESTINAL DISORDER N PERIPHERAL VASCULAR DISEASE N MUSCLE,JOINT OR BONE PROBLEMS N GASTROINTESTINAL BLEEDING N BLOOD CLOTS N ASTHMA N CATARACTS N ERECTILE DYSFUNCTION N VARICOSITIES N GI PROBLEMS N Low Testosterone N INFERTILITY N AIDS/HIV N CHEMOTHERAPY / RADIATION N LIVER DISEASE N MALE HYPOGONADISM N HYPERTENSION Y Deficiency N TOURETTE'S N ANXIETY DISORDER N BLOOD TRANSFUSION N ANEMIA/BLOOD DISORDER N CHRONIC EAR INFECTIONS N BRONCHITIS N TUBERCULOSIS N GLAUCOMA N FOOT PROBLEM N DIVERTICULITIS N CHICKENPOX N SLEEP APNEA N INFECTIOUS DISEASE N HEART ARRHYTHMIA N PROSTATE N INSOMNIA N HIGH CHOLESTEROL / HYPERLIPIDEMIA N HYPERTHYROIDISM N EYE PROBLEMS N EDEMA N CHRONIC PAIN SYNDROME N HYPOTHYROIDISM N CAROTID BLOCKAGE N CONSTIPATION N BACK / NECK PROBLEMS N HAVE YOU BEEN HOSPITALIZED OR SEEN IN [facility] IN THE PAST YEAR ? N ATHEROSCLEROSIS N BREAST PROBLEMS N DIALYSIS N ECZEMA N OSTEOPOROSIS N ARTHRITIS N NO SIGNIFICANT PAST MEDICAL HISTORY N APPENDICITIS N DIABETES, TYPE N BAD TEETH N ENT N HEARTBURN / REFLUX N AUTISM SPECTRUM DISORDER (ASD) N HEPATITIS / LIVER DISEASE N GOUT N SLEEP DISORDER N ALZHEIMER'S DISEASE N Brain Problems N HERPES N DEMENTIA N HEADACHES/MIGRAINES N SEIZURES/EPILEPSY N VASCULAR DISEASE N PACEMAKER N Blood Disorder N DIZZINESS N HEART DISEASE/HEART PROBLEMS N KIDNEY DISEASE N MULTIPLE SCLEROSIS N CARDIAC ARRHYTHMIA N CANCER: SPECIFY N ATRIAL FIBRILLATION N Gall Stones N PULMONARY EMBOLISM N AUTOIMMUNE DISEASE N Gynecological History Statement/Question Response Date of Last Mammogram 04/14/2019 Date of Last Colonoscopy Most Recent Bone Density 04/14/2019 Obstetrics History GPAL:G 0 P 0 0 0 0 Immunizations Vaccine Type Date Status Note Provider Nam e and Address Organization Details Recorded Time COVID-19, mRNA, LNP-S, bivalent, PF, 10 mcg/0.2 mL 3 completed Shweta Gutiérrez CMA null, [employer] 09/19/2022 10:01:10 Influenza, high-dose, quadrivalent, PF 3 completed Adrian Mohr MD [address] [place] [address], [address], [facility] [employer] 01/27/2023 11:20:07 Influenza, split virus, quadrivalent, preservative 1 completed Not Available [facility] 05/14/2022 12:59:12 SARS-COV-2 (COVID-19) vaccine, UNSPECIFIED 1 completed Not Available [facility] 05/14/2022 12:59:12 influenza, unspecified formulation 2 completed Not Available [facility] 05/14/2022 12:59:12 COVID-19, mRNA, LNP-S, bivalent, PF, 50 mcg/0.5 mL or 25mcg/0.25 mL dose 2 completed Not Available [facility] 05/14/2022 12:59:12 SARS-COV-2 (COVID-19) vaccine, UNSPECIFIED 1 completed Not Available [facility] 05/14/2022 12:59:12 SARS-COV-2 (COVID-19) vaccine, UNSPECIFIED 1 completed Not Available [facility] 05/14/2022 12:59:12 Pneumococcal conjugate PCV 13 9 completed Not Available [facility] 05/14/2022 12:59:12 zoster live 4 completed Not Available [facility] 05/14/2022 12:59:13 Influenza, split virus, trivalent, preservative 4 completed Not Available [facility] 05/14/2022 12:59:13 Past Encounters Encounter ID Performer Location Encounter Start Date Encounter Closed Date Diagnosis/Indication Diagnosis SNOMED-CT Code Diagnosis ICD10 Code Diagnosis Note [id number] [facility] [place] [address] [place] [address] y , [place] [address] 08/21/2020 00:00:00 08/21/2020 12:51:25 [id number] [facility] Internal [facility] [place] [address] , [place] [address] 03/05/2021 00:00:00 03/05/2021 12:31:03 [id number] [facility] [place] [address] , [place] [address] 01/21/2022 00:00:00 01/21/2022 11:04:18 [id number] Adrian Mohr MD [facility] [place] [address] [place] [address] y , [place] [address] 07/22/2022 10:32:32 07/22/2022 11:12:19 Benign essential hypertension 0614443 I10 Obese class II 290292728 1 77143 E66.9 Pica 43757816 F50.89 [id number] Adrian Mohr MD [facility] [place] [address] [place] [address] [place] [address] 01/27/2023 10:42:29 01/27/2023 11:25:50 Administration of influenza vaccine 97956060 Z23 Adult heal th examination 745396176 Z00.00 Screening for disorder 945775677 Z13.9 Benign ess ential hypertension 7906895 I10 Chest pain 91523191 R07. 9 Obese class II 457035976 1 47152 E66.9 Vitamin D deficiency 347 56078 E55.9 [id number] Adrian Mohr MD [facility] Internal [facility] [place] [address] [place] [address] [place] [address] 07/28/2023 10:36:25 07/28/2023 10:53:17 Benign essential hypertension 8949472 I10 Hypercholesterolemia 136 30001 E78.00 Obese class II 462538417 1 10274 E66.9 [id number] Adrian Mohr MD [facility] [address] [facility] [address] [facility] [place] [address] 02/02/2024 10:29:33 02/02/2024 11:26:44 Adult health examination 957541525 Z00.00 Screening for disorder 314317478 Z13.9 Benign ess ential hypertension 3397317 I10 Hypercholesterolemia 136 92271 E78.00 Coronary arteriosclerosis 49258597 I25.10 Obesity 023364807 E66.9 Health Concerns Section Related Observation LastModified by Organization Detai ls LastModified Time None Recorded Concern Status LastModified by Organization Details LastModified Time None Recorded Advance Directives Directive Y: Payers Encounter Date Sequence Insurance Name Policy Number Policy Cheema Covered Member ID Cheema Member ID Guarantor Name 07/22/2022 1 [place] Valerie Sheridan [id number] Valerie Sheridan 07/22/2022 2 [place] [id number] Valerie Sheridan [id number] Valerie Sheridan 01/27/2023 1 [place] Valerie Sheridan [id number] Valerie Crowleyos 01/27/2023 2 [place] [id number] Valerie Crowleyos [id number] Valerie Crowleyos 07/28/2023 1 [place] Valerie Sheridan [id number] Valerie Crowleyos 07/28/2023 2 [place] [id number] Valerie Crowleyos [id number] Valerie Crowleyos 02/02/2024 1 [place] Valerie Sheridan [id number] Valerie Crowleyos 02/02/2024 2 [place] [id number] Valerie Crowleyos [id number] Valerie Crowleyos Notes Date Note Type Note Provider Name and Address Organization Details Recorded Time 3 text/html Patient Name: Valerie SheridanDate Of Service: Thursday ( 07.22.2022 ): 1950 Age: 71 Vital Signs:Blood Pressure: Sitting Rt. Arm 120/64Pulse: Sitting 90 /min and RegularRespirations: 12Height 63 in or 1.6 mWeight 202 lb or 91.6 kgBMI 35.8Temperature: 97 F or 36.1 CPulse Oximetry: 98 % at rest on no oxygen Chief Complaint: Addressed in HPI Problems or conditions discussed in the HPI were the only ones reviewed during the encounter.Only social and family history addressed in the HPI were reviewed during this encounter. Attendant(s): None Constitutional and Systemic Symptoms: none Medication Reconciliation: from medication list. Tsxnsvonfyk46/13/2022: 02/25/2022: Bone density scan demonstrates normal bone density. Continue on calcium and vitamin-D supplements repeat in two years History of Present Illness #1. Essential Hypertension: Stage: Stage I Interval Neurological Complaints no headaches, dizziness, weakness, visual changes, ataxia, aphasia and apraxia. No shortness of breath, orthopnea or cardiovascular symptoms. No other symptoms related to end organ damage. Pressure has been under excellent control. Currently normal. No other end organ symptoms or findings. Therapy reviewed regarding management of hypertension and includes salt restriction and Lisinopril. #2. Hx of obesity. Currently Class 2 Obesity BMI 35-39.99. Has tried numerous dietary support and supplements with no benefit. Instructed on the health consequences of the obese status particularly cancer - diabetes and heart disease. Discussed new modalities of weight loss including GLP-1 medications that are used to treat diabetes. Potential candidate for bariatric surgery: No. Wishes to be evaluated by Dietary: No and was offered to be evaluated by dietary. Actually had lost quite a bit of weight on weight watchers subsequently regained this when resuming her normal diet.#3. Pagophagia over the last several months. Is overdue for colonoscopy which he has scheduled for in a couple months. Had blood work performed back in February. At that time looked adequate. Will recheck blood work at this time including iron levels.Medication List Reviewed and Reconciled 07/22/2022spirin 81 MG One Daily For Vascular ProphylaxisLisinopril 20 MG (TABLET - ORAL) One Daily For HtnADRs List Reviewed 07/22/2022leve NauseaCodeine AnxietyVaccination and Wkujetuueorw2877-73 Gpjjljqzx1488-88 Covid Aydqvmx0037-02 Pneumovax 020443-82 Prevnar 13Surgical HistoryCholecystectomy, Tubal LigationPreventative Testing Confirmed by Our Pevxkgl6002/25/2022 DEXA SCAN02/13/2022 ALBUMIN 3.8 G/DL05/16/2021 MAMMOGRAM /07/2016 COLONOSCOPY (5 YEARS) 06/18/2021ocial HistoryDoes not smoke. Quit in 1970. Smoked a pack a day for 10 years. Drinks socially. 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 all pneumonia(1) RA(1) COPD(1), CAD(1)Six sisters. Three MVA(1) CAD(2) Adrian Mohr MD [address] [facility], [facility] [address], [place], [address], [facility] [employer] 07/22/2022 11:10:59 3 text/html Patient Name: Valerie Herron FatimahDate Of Service: Thursday ( 01.27.2023 ): 1950 Age: 72 There has been approximately a 6 lb weight gain since 07/22/2022. This represents approximately a 3.0% change in weight. Weight change attributable to lifestyle changes. Vital Signs:Blood Pressure: Sitting Rt. Arm 122/58Pulse: Sitting 84 /min and RegularRespiratory Rate: 12Height 63 in or 1.6 mWeight 208 lb or 94.3 kgBMI 36.8Temperature: 97 F or 36.1 CPulse Oximetry: 98 % at rest on no oxygen Chief Complaint: Addressed in HPI Problems or conditions discussed in the HPI were the only ones reviewed during the encounter.Only social and family history addressed in the HPI were reviewed during this encounter. A significant, separate E/M service was performed to evaluate the current and new problems. Attendant(s): NoneConstitutional and Systemic Symptoms:none Medication Reconciliation: from medication list. Utuqutzbakc43/13/2022: Bone density scan demonstrates normal bone density. Continue on calcium and vitamin-D supplements repeat in two years History of Present Illness Reviewed the findings of the preventative health visit. Addressed all areas with the patient, patient's family or caregivers. Preventative examinations and testing immunizations - vaccinations, colonic neoplasm screening, mammograms and DEXA Scan all reviewed and ordered where patient was amenable to the recommendations. Cognitive function was normal. Depression addressed and where necessary medications were adjusted or instituted. End of life and living will briefly discussed with patient and where these can be filled out and legally executed. Other blood and imaging studies were ordered if considered necessary. Other recommendations may be found in the encounter note. #1. Essential Hypertension: Stage: Stage I Interval Neurological Complaints no headaches, dizziness, weakness, visual changes, ataxia, aphasia and apraxia. No shortness of breath, orthopnea or cardiovascular symptoms. No other symptoms related to end organ damage. Pressure has been under excellent control. Currently normal. No other end organ symptoms or findings. Therapy reviewed regarding management of hypertension and includes salt restriction and Lisinopril. #2. Atypical chest discomfort particularly with exertion. Gets some somewhat short of breath. Does have to slow down does not have to stop. The pain is described more as a pressure-like sensation which occurs intermittently numbness of the all the time when she walks. Interestingly she has had a craving for ice recently does appear to be slightly pale. May have an associated anemia. Although at her age would be concerned about the possibility of some form of anginal equivalents as well and may need a cardiac evaluation pending any laboratory studies. Denies any orthopnea, PND or any other cardiovascular symptoms.: #3. Hx of obesity. Currently Class 2 Obesity BMI 35-39.99. Has tried numerous dietary support and supplements with no benefit. Instructed on the health consequences of the obese status particularly cancer - diabetes and heart disease. Discussed new modalities of weight loss including GLP-1 medications that are used to treat diabetes. Potential candidate for bariatric surgery: No. Wishes to be evaluated by Dietary: No and was offered to be evaluated and instructed by managing partner [employer] [place] on weight loss diet.Medication List Reviewed and Reconciled 01/27/2023spirin 81 MG One Daily For Vascular ProphylaxisLisinopril 20 MG (TABLET - ORAL) One Daily For HtnEstrogens Daily As DirectedADRs List Reviewed 01/27/2023leve NauseaCodeine AnxietyVaccination and Cdezvkbokqqv7298-25 Oskjoibdg4186-36 Covid Prhjdez3896-25 Rpdlpecqm7882-85 Prevnar 13 Pz8012-79 TdapSurgical HistoryCholecystectomy, Tubal LigationPreventative Testing Confirmed by Our Kzrbcob5410/15/2022 MAMMOGRAM DEXA SCAN02/13/2022 ALBUMIN 3.8 G/DL N006/18/2016 COLONOSCOPY (5 YEARS) 06/18/2021ocial HistoryDoes not smoke. Quit in 1970. Smoked a pack a day for 10 years. Drinks socially. 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 all pneumonia(1) RA(1) COPD(1), CAD(1)Six sisters. Three MVA(1) CAD(2) Adrian Mohr MD [address] [facility], [facility] [address], [place], [address], [facility] [employer] 01/27/2023 11:21:01 4 text/html Patient Name: Valerie Herron JarosDate Of Service: Thursday ( 07.28.2023 ): 1950 Age: 72 There has been approximately a 5 lb weight loss since 01/27/2023. This represents approximately a 2.4% change in weight. Weight change attributable to lifestyle changes. Vital Signs:Blood Pressure: Sitting Rt. Arm 120/62Pulse: Sitting 85 /min and RegularRespiratory Rate: 12Height 63 in or 1.6 mWeight 203 lb or 92.1 kgBMI 36.0Temperature: 99 F or 37.2 CPulse Oximetry: 97 % at rest on no oxygen Chief Complaint: Addressed in HPI Problems or conditions discussed in the HPI were the only ones reviewed during the encounter.Only social and family history addressed in the HPI were reviewed during this encounter. Attendant(s): NoneConstitutional and Systemic Symptoms:none Medication Reconciliation: from medication list. Vwvbncpgvbd78/13/2022: Bone density scan demonstrates normal bone density. Continue on calcium and vitamin-D supplements repeat in two years History of Present Illness #1. Essential Hypertension: Stage: Stage I Interval Neurological Complaints no headaches, dizziness, weakness, visual changes, ataxia, aphasia and apraxia. No shortness of breath, orthopnea or cardiovascular symptoms. No other symptoms related to end organ damage. Pressure has been under excellent control. Currently normal. No other end organ symptoms or findings. Therapy reviewed regarding management of hypertension and includes salt restriction and Lisinopril. #2. Type II Hypercholesterolaemia: Currently taking medication and tolerating well. No interval complaints of any muscle pain or arthralgia. No significant liver changes with medications. Last lipid panel: fair control. Therapy reviewed regarding treatment of cholesterol management and include diet and Crestor. #3. Hx of obesity. Currently Class 2 Obesity BMI 35-39.99. Has tried numerous dietary support and supplements with no benefit. Instructed on the health consequences of the obese status particularly cancer - diabetes and heart disease. Discussed new modalities of weight loss including GLP-1 medications that are used to treat diabetes. Potential candidate for bariatric surgery: No. Wishes to be evaluated by Dietary: No and was offered to be evaluated and instructed by managing partner [employer] [place] on weight loss diet. Active Medication ListAspirin 81 MG One Daily For Vascular ProphylaxisLisinopril 20 MG (TABLET - ORAL) One Daily For HtnEstrogens Daily As DirectedCrestor 10 MG TABLET, FILM COATED Once Daily Adverse Drug Reactions ReviewedAleve NauseaCodeine Anxiety Vaccination and Nvdrwhrbuonr0930-87 Dveunqmvp6798-07 Covid Hjqelzl1118-11 Axbgojzvj2014-51 Prevnar 13 Wn7064-53 Tdap Surgical Ufddpnm5842-90 Ykfxuicvqwputll5366-76 Tubal Ligation Preventative Cdymmal9304/28/2023 COLONOSCOPY ( 5 YEARS ) 9104/04/2022 ALBUMIN 3.9 G/DL N010/15/2022 MAMMOGRAM DEXA SCAN Social HistoryDoes not smoke. Quit in 1970. Smoked a pack a day for 10 years. Drinks socially. 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 Family HistoryMother 85 ASHDFather at 67 from Ca of LungThree brothers. all pneumonia(1) RA(1) COPD(1), CAD(1)Six sisters. Three MVA(1) CAD(2) Adrian Mohr MD [address] [facility], [facility] [address], [place], [address], [facility] [employer] [facility] 07/28/2023 10:44:56 4 text/html Patient Name: Valerie Herron JarosDate Of Service: Thursday ( 02.02.2024 ): 1950 Age: 73 There has been approximately a 2 lb weight gain since 07/28/2023. This represents approximately a 1.0% change in weight. Weight change attributable to lifestyle changes. Vital Signs:Blood Pressure: Sitting Rt. Arm 124/70Pulse: Sitting 77 /min and RegularRespiratory Rate: 16Height 65 in or 1.7 mWeight 205 lb or 93.0 kgBMI 34.1Temperature: 97 F or 36.1 CPulse Oximetry: 98 % at rest on no oxygen Chief Complaint: Addressed in HPI Problems or conditions discussed in the HPI were the only ones reviewed during the encounter.Only social and family history addressed in the HPI were reviewed during this encounter. A significant, separate E/M service was performed to evaluate the current and new problems. Attendant(s): NoneConstitutional and Systemic Symptoms:from medication list Medication Reconciliation: immunizations - vaccinations, colonic neoplasm screening, mammograms and DEXA Scan. Gperkywetbw99/13/2022: Bone density scan demonstrates normal bone density. Continue on calcium and vitamin-D supplements repeat in two years History of Present Illness Reviewed the findings of the preventative health visit. Addressed all areas with the patient, patient's family or caregivers. Preventative examinations and testing was normal all reviewed and ordered where patient was amenable to the recommendations. Cognitive function no change in frequency - duration - intensity. Depression addressed and where necessary medications were adjusted or instituted. End of life and living will briefly discussed with patient and where these can be filled out and legally executed. Other blood and imaging studies were ordered if considered necessary. Other recommendations may be found in the encounter note. #1. Coronary Artery Disease: There has been none in frequency, duration or intensity of chest pain. Other Complaints: several times per week The frequency of anginal attacks is none. Additional Symptoms: Aspirin and Lisinopril Therapy reviewed regarding cardiovascular management includes Stage I #2. Essential Hypertension: Stage: no headaches, dizziness, weakness, visual changes, ataxia, aphasia and apraxia Interval Neurological Complaints excellent. No shortness of breath, orthopnea or cardiovascular symptoms. No other symptoms related to end organ damage. Pressure has been under normal control. Currently Lisinopril. No other end organ symptoms or findings. Therapy reviewed regarding management of hypertension and includes Type II Hypercholesterolaemia. #3. not taking medication: Currently Some. excellent control interval complaints of any muscle pain or arthralgia. No significant liver changes with medications. Last lipid panel: cannot tolerate statins or related agents. Therapy reviewed regarding treatment of cholesterol management and include Class 1 Obesity BMI 30-34.99. #4. Hx of obesity. Currently no. Has tried numerous dietary support and supplements with no benefit. Instructed on the health consequences of the obese status particularly cancer - diabetes and heart disease. Discussed other modalities of weight loss No . Potential candidate for bariatric surgery: No and was offered to be evaluated and instructed by managing partner [employer] [place] on weight loss diet. Wishes to be evaluated by Dietary: No and was offered to be evaluated and instructed by managing partner [employer] [place] on weight loss diet. Active Medication ListAspirin 81 MG One Daily For Vascular ProphylaxisLisinopril 20 MG (TABLET - ORAL) One Daily For HtnEstrogens Daily As Directed Adverse Drug Reactions ReviewedAleve NauseaCodeine AnxietyAtorvastatin Calcium MyalgiaRosuvastatin Myalgia Vaccination and Immunization(X) 2022- INFLUENZA(X) 2009- TDAP( ) 2019- PREVNAR 13 GC(X) 2021-01 COVID MODERNA( ) 2020-08 PNEUMOVAX Surgical Bcofvdc8581-05 Kfxpimcffeygezl5474-34 Tubal Ligation Preventative Testing( ) 08/14/2023 Albumin 3.9 G/DL N( ) 04/28/2023 Colonoscopy ( 5 Years ) 04/28/2028( ) 10/15/2022 Mammogram 10/15/2024( ) 02/25/2022 DEXA Scan 02/26/2024 Social HistoryDoes not smoke. Quit in 1970. Smoked a pack a day for 10 years. Drinks socially. 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 Family HistoryMother 85 ASHDFather at 67 from Ca of LungThree brothers. all pneumonia(1) RA(1) COPD(1), CAD(1)Six sisters. Three MVA(1) CAD(2) Active Medication ListAspirin 81 MG One Daily For Vascular ProphylaxisLisinopril 20 MG (TABLET - ORAL) One Daily For HtnEstrogens Daily As Directed Adverse Drug Reactions ReviewedAleve NauseaCodeine AnxietyAtorvastatin Calcium MyalgiaRosuvastatin Myalgia Vaccination and Immunization(X) 2022- INFLUENZA(X) 2009- TDAP( ) 2019-02 PREVNAR 13 GC(X) 2020- COVID MODERNA( ) 2020-08 PNEUMOVAX Surgical Dhmcwsp2058-33 Kbozhyrnkbrvyom9235-62 Tubal Ligation Preventative Testing( ) 08/14/2023 Albumin 3.9 G/DL N( ) 04/28/2023 Colonoscopy ( 5 Years ) 04/28/2028( ) 10/15/2022 Mammogram 10/15/2024( ) 02/25/2022 DEXA Scan 02/26/2024 Social HistoryDoes not smoke. Quit in 1970. Smoked a pack a day for 10 years. Drinks socially. 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 Family HistoryMother 85 ASHDFather at 67 from Ca of LungThree brothers. all pneumonia(1) RA(1) COPD(1), CAD(1)Six sisters. Three MVA(1) CAD(2) Adrian Mohr MD [address] [facility], [facility] [address], [place], [address], [facility] [employer] 02/02/2024 11:11:10 OBGyn Episode No OBEpisode recorded.
--- OUTSIDE RECORDS SUMMARY | 2024-04-11 12:20 | XMS_ITS | Referral Summary ---
Author Organization [facility] [address] [facility] [address] Address [address] [place] [address] Care Team Providers Care Learning And Development Specialist Name Role Phone Jakob Mohr MD Primary Care Provider Encounters Date Type Department Care Team Description 01/21/2024 Telephone [facility] Cardiology [address] [place] [address] Osman Luu MD Medication Reaction; Muscle Pain from Last 3 Months Allergies No known active allergies Medications aspirin [...] 05/14/2023 Chest pain 05/14/2023 Abnormal mammogram 01/15/2010 Social History Tobacco Use Types Packs/Day Years [...] on file 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
[2024-04-11 12:24] LABS: Total Protein Urine 24 Hr 192 mg/24hr (28-141); Total Volume 24 Hour Urine 2400 ml
[2024-04-11 12:26] LABS: Creatinine Clearance Urine 61.6 ml/min (75-125); Serum Creat 1.27
== END 2024-04-11 11:17 | disposition home or self-care (01) ==
PROVIDERS: PCP Internal Medicine; Visit Provider Internal Medicine
DX: N18.9 Chronic kidney disease, unspecified (principal)
CPT/HCPCS: 36415; 81050; 82565; 82575; 84156

== ENCOUNTER 2024-04-12 10:39 | Outpatient (CLI) | payer MEDICARE, SELFPAY ==
--- NOTE | ~2024-04-12 | US_ITS ---
Renal-Bladder ultrasound Clinical History: Chronic renal failure Technique: Real-time sonographic imaging of the kidneys and urinary bladder was performed. Findings: The right kidney measures 10.0 cm in length and the left kidney measures 10.0 cm. There is no hydronephrosis or renal calculus identified. Renal cortical echogenicity is within normal limits. No renal mass lesion is identified. The urinary bladder is partially distended at the time of this exam. No intraluminal echoes are ident ified. No abnormal wall thickening is seen. Impression: Unremarkable ultrasound of the kidneys and urinary bladder. Reviewed, dictated and finalized at location M. 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
== END 2024-04-12 10:40 | disposition home or self-care (01) ==
LOC: MICIMG 10:40
PROVIDERS: PCP Internal Medicine; Visit Provider Internal Medicine
DX: N18.9 Chronic kidney disease, unspecified (principal)
CPT/HCPCS: 76775

== ENCOUNTER 2024-07-07 11:36 | Outpatient (CLI) | payer MEDICARE, SELFPAY ==
--- NOTE | ~2024-07-07 | MM_ITS ---
EXAMINATION: MM screening allyn BI w dina HISTORY: Screening TECHNIQUE: Craniocaudal and mediolateral oblique 3-D tomosynthesis images were obtained and synthetic 2-D images were generated. CAD analysis was submitted and interpreted. COMPARISON: Comparison to multiple prior studies sequentially, with oldest reviewed study dated 12/15. BREAST PARENCHYMAL COMPOSITION: Not dense: There are scattered areas of fibroglandular density. FINDINGS: There is no evidence of suspicious mass, calcification, or architectural distortion to sugg est malignancy in either breast. There has been no suspicious interval change. IMPRESSION: 1. No mammographic evidence of malignancy. 2. Recommend routine screening mammography in one year. BI-RADS Category 1: Negative Reviewed, dictated and finalized at location A.
== END 2024-07-07 11:37 | disposition home or self-care (01) ==
LOC: MICIMG 11:37
PROVIDERS: PCP Internal Medicine; Visit Provider Internal Medicine
DX: Z12.31 Encounter for screening mammogram for malignant neoplasm of breast (principal)
CPT/HCPCS: 77063; 77067

== ENCOUNTER 2024-08-18 11:08 | Outpatient (CLI) | payer MEDICARE, SELFPAY ==
[2024-08-18 11:21] LABS: Collection Time Urine 24 HOURS
[2024-08-18 12:09] LABS: Estimated Glomerular Filt Rate 43
--- OUTSIDE RECORDS SUMMARY | 2024-08-18 12:15 | XMS_ITS | Clinical Summary ---
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
--- OUTSIDE RECORDS SUMMARY | 2024-08-18 12:15 | XMS_ITS | Data Portability ---
Author Organization [facility] [place] Address [address] [place] [address] Care Team Providers Care Text Transcriber Name Role Phone ADRIAN EDMONDSON Primary Care Provider Assessment Encounter Date Assessment Date Assessment LastModified by Organization Details LastModified Time 05/01/2021 05/01/2021 will order #5 ri ng (next size down). Pt also feels more comfortable with it parallel in vagina instead of perpendicular. continue estrace cream [email or web address] Not available 05/08/2021 12:45:59 06/26/2021 06/26/2021 pessary placed, will restart estrace, script to compounding pharmacy to help with cost FU 2 mos [email or web address] Not available 06/26/2021 14:34:01 07/19/2021 07/19/2021 urine culture needs repeat UA 2-4 weeks for microscopic hematuria likely musculoskeletal pain- ibuprofen, heat/ice, massage, rest [email or web address] Not available 07/19/2021 13:54:53 06/13/2022 06/13/2022 repeat UA today restart estrace cream- compounded for cost for pt, script sent. discussed needs to continue twice weekly as long as using pessary FU 2-3 mos WWE [email or web address] Not available 06/13/2022 16:49:31 12/09/2022 12/09/2022 healthy female exam/menopause no further paps mammogram UTD colonoscopy- needs to RS dexa due 2027 compounded estrogen refilled doing well with pessary Encouraged weight bearing exercise and 1500mg daily of Calcium with Vitamin D FU 1 year or prn Not available 12/10/2022 09:43:38 Plan of Treatment Reminders Order Date Submit Date Provider Last Modified By Organization Details Last Modified Time Details Appointments None recorded. Lab urinalysis , dipstick 2021 022 [facility] [address], [address], [place], [address], 11:40:32 Referral None recorded. Procedures None recorded. Surgeries None recorded. Imaging None recorded. Medication Orders None recorded. Patient TargetsNo targets recorded. Patient InstructionsNo instructions recorded. Reason for Referral None Reported. Results Created Date Observation Date Name Description Value Unit Range Abnormal Flag Note LastModifiedBy Organization Detail LastModifiedTime 07/20/1907/19/2021 URINA LYSIS , WITH MICRO SCOPI C color, urine Yellow colorl ess, light yellow , yellow , dark yellow , straw Not Available [facility] (Lab) [address], [place], [address], 07/20/2021 23:05:13 07/20/19 22 07/19/2021 URINA LYSIS , WITH MICRO SCOPI C clarity, urine Clear Not Available [facility] (Lab) [address], [place], [address], 07/20/2021 23:05:13 07/20/19 22 07/19/2021 URINA LYSIS , WITH MICRO SCOPI C glucose, urine Negati ve mg/dL negati ve Not Available [facility] (Lab) [address] , [place], [address], 07/20/2021 23:05:13 07/20/19 22 07/19/2021 URINA LYSIS , WITH MICRO SCOPI C bilirubin, urine Negati ve mg/dL negati ve Not Available [facility] (Lab) [address] [place], [address], 07/20/2021 23:05:13 07/20/19 22 07/19/2021 URINA LYSIS , WITH MICRO SCOPI C ketones, urine Negati ve mg/dL negati ve Not Available [facility] (Lab) [address], [place], [address], 07/20/2021 23:05:13 07/20/19 22 07/19/2021 URINA LYSIS , WITH MICRO SCOPI C pH, urine 5.0 . 5.0-9. 0 Not Available [facility] (Lab) [address], [place], [address], 07/20/2021 23:05:13 07/20/19 22 07/19/2021 URINA LYSIS , WITH MICRO SCOPI C specific gravity, urine 1.018 . 1.001- 1.035 Not Available [facility] (Lab) [address], [place], [address], 07/20/2021 23:05:13 07/20/19 22 07/19/2021 URINA LYSIS , WITH MICRO SCOPI C blood, urine Small negati ve abnormal Not Available [facility] (Lab) [address], [place], [address], 07/20/2021 23:05:13 07/20/19 22 07/19/2021 URINA LYSIS , WITH MICRO SCOPI C protein, UA Negati ve mg/dL negati ve Not Available [facility] (Lab) [address], [place], [address], 07/20/2021 23:05:13 07/20/19 22 07/19/2021 URINA LYSIS , WITH MICRO SCOPI C urobilinogen , urine <2.0 mg/dL <2.0 Not Available [facility] (Lab) [address], [place], [address], 07/20/2021 23:05:13 07/20/19 22 07/19/2021 URINA LYSIS , WITH MICRO SCOPI C nitrite, urine Negati ve negati ve Not Available [facility] (Lab) [address], [place], [address], 07/20/2021 23:05:13 07/20/19 22 07/19/2021 URINA LYSIS , WITH MICRO SCOPI C leukocyte esterase, urine Negati ve clive/u L negati ve Not Available [facility] (Lab) [address], [place], [address], 07/20/2021 23:05:13 07/20/19 22 07/19/2021 URINA LYSIS , WITH MICRO SCOPI C WBC, urine 0-5 /hpf none, 0-5 Not Available [facility] (Lab) [address], [place], [address], 07/20/2021 23:05:13 07/20/19 22 07/19/2021 URINA LYSIS , WITH MICRO SCOPI C RBC, urine 0-2 /hpf none, 0-2 Not Available [facility] (Lab) [address], [place], [address], 07/20/2021 23:05:13 07/20/19 22 07/19/2021 URINA LYSIS , WITH MICRO SCOPI C bacteria, urine None /hpf none Not Available [facility] (Lab) [address], [place], [address], 07/20/2021 23:05:13 07/20/19 22 07/19/2021 URINA LYSIS , WITH MICRO SCOPI C squamous epithelial cells, urine Few /hpf none abnormal Not Available [facility] (Lab) [address], [place], [address], 07/20/2021 23:05:13 07/20/19 22 07/19/2021 URINA LYSIS , WITH MICRO SCOPI C mucus, urine Few /hpf none, trace, few Not Available [facility] (Lab) [address], [place], [address], 07/20/2021 23:05:13 07/20/19 22 07/19/2021 CULTU RE: URINE result report SEE RESULT S BELOW Test: Cultu re: Urine Speci men Sourc e: Urine - Clean Catch Speci men Type: Urine Speci men Date: 1:28 PM Resul t Date: 10:00 PM Resul t Statu s: Final resul t Abnor mal: No Resul ting Lab: [facility] [address] [facility] [address] Tel: CULTU RE ----- ----- ----- --- No growt h in 1 day (dete ction level of 10,00 0 colon ies / ml.) Not Available [facility] (Lab) [address], [place], [address], 07/20/2021 23:05:14 07/20/19 22 07/19/2021 urina lysis , dipst ick Leukocytes neg Not Available [facility] [address], [place], [address], 07/19/2021 11:40:03 07/20/19 22 07/19/2021 urina lysis , dipst ick Nitrite neg Not Available [place] [address], [place], [address], 07/19/2021 11:40:03 07/20/19 22 07/19/2021 urina lysis , dipst ick Blood trace Not Available [place] [address], [place], [address], 07/19/2021 11:40:03 06/14/19 23 06/13/2022 URINA LYSIS , WITH MICRO SCOPI C color, urine Light Yellow Highl y color ed speci mens may inter fere with chemi stry resul ts. Not Available [facility] (Lab) [address], [place], [address], 06/14/2022 02:21:21 06/14/19 23 06/13/2022 URINA LYSIS , WITH MICRO SCOPI C clarity, urine Clear Not Available [facility] (Lab) [address], [place], [address], 06/14/2022 02:21:21 06/14/19 23 06/13/2022 URINA LYSIS , WITH MICRO SCOPI C glucose, urine Normal mg/dL negati ve Not Available [facility] (Lab) [address], [place], [address], 06/14/2022 02:21:21 06/14/19 23 06/13/2022 URINA LYSIS , WITH MICRO SCOPI C bilirubin, urine Negati ve negati ve Not Available [facility] (Lab) [address], [place], [address], 06/14/2022 02:21:21 06/14/19 23 06/13/2022 URINA LYSIS , WITH MICRO SCOPI C ketones, urine Negati ve mg/dL negati ve Not Available [facility] (Lab) [address], [place], [address], 06/14/2022 02:21:21 06/14/19 23 06/13/2022 URINA LYSIS , WITH MICRO SCOPI C specific gravity, urine 1.022 . 1.005- 1.035 Not Available [facility] (Lab) [address], [place], [address], 06/14/2022 02:21:21 06/14/19 23 06/13/2022 URINA LYSIS , WITH MICRO SCOPI C blood, urine Negati ve negati ve Not Available [facility] (Lab) [address], [place], [address], 06/14/2022 02:21:21 06/14/19 23 06/13/2022 URINA LYSIS , WITH MICRO SCOPI C pH, urine 5.5 . 5.0-7. 0 Not Available [facility] (Lab) [address], [place], [address], 06/14/2022 02:21:21 06/14/19 23 06/13/2022 URINA LYSIS , WITH MICRO SCOPI C protein, UA Negati ve mg/dL negati ve, 10-20 Not Available [facility] (Lab) [address], [place], [address], 06/14/2022 02:21:21 06/14/19 23 06/13/2022 URINA LYSIS , WITH MICRO SCOPI C nitrite, urine Negati ve negati ve Not Available [facility] (Lab) [address], [place], [address], 06/14/2022 02:21:21 06/14/19 23 06/13/2022 URINA LYSIS , WITH MICRO SCOPI C leukocyte esterase, urine Negati ve clive/u L negati ve Not Available [facility] (Lab) [address], [place], [address], 06/14/2022 02:21:21 06/14/19 23 06/13/2022 URINA LYSIS , WITH MICRO SCOPI C urobilinogen , urine Normal mg/dL normal , <2.0 Not Available [facility] (Lab) [address], [place], [address], 06/14/2022 02:21:21 06/14/19 23 06/13/2022 URINA LYSIS , WITH MICRO SCOPI C RBC, urine None /hpf none, 0-2 Not Available [facility] (Lab) [address], [place], [address], 06/14/2022 02:21:21 06/14/19 23 06/13/2022 URINA LYSIS , WITH MICRO SCOPI C WBC, urine 0-5 /hpf none, 0-5 Not Available [facility] (Lab) [address] [place], [address], 06/14/2022 02:21:21 06/14/19 23 06/13/2022 URINA LYSIS , WITH MICRO SCOPI C squamous epithelial cells, urine Modera te /hpf none abnormal Not Available [facility] (Lab) [address], [place], [address], 06/14/2022 02:21:21 06/14/19 23 06/13/2022 URINA LYSIS , WITH MICRO SCOPI C bacteria, urine None /hpf none Not Available [facility] (Lab) [address], [place], [address], 06/14/2022 02:21:21 06/14/19 23 06/13/2022 URINA LYSIS , WITH MICRO SCOPI C hyaline cast, urine None /lpf none, 0-2 Not Available [facility] (Lab) [address], [place], [address], 06/14/2022 02:21:21 06/14/19 23 06/13/2022 URINA LYSIS , WITH MICRO SCOPI C mucus, urine Many /hpf none, trace, few abnormal Not Available [facility] (Lab) [address], [place], [address], 06/14/2022 02:21:21 Result Notes None recorded. Problems Name Problem SNOMED Code Status Onset Date Resolution Date Notes Provider Name and Address Organization Details Recorded Time Breast lump [id number] Completed 201202/13/2021 Lump or mass in breast;R ecorded Elsewher e: No Locat ion: [facility] S ource: EHR Log Haul Chain Feeder rachelle: N Isidra ce ID: [id number] Ap lable Time: 11:00:00 AM Cassy Membreno MD [address], [place], [address], [facility] 11:44:26 Speciali zed medical examinat ion Completed 201102/13/2021 Gynecolo gical Examinat ion;Russel rded Elsewher e: No Locat ion: [facility] S ource: EHR [employer] Feeder rachelle: N Isidra ce ID: [id number] Ap lable Time: 01:00:00 PM Cassy Membreno MD [address], [place], [address], [facility] 1 11:44:41 Screenin g for malignan t neoplasm of rectum Completed 201102/13/2021 Screenin g for malignan t neoplasm s of the rectum;R ecorded Elsewher e: No Locat ion: [facility] S ource: EHR [employer] Chain Feeder rachelle: N Practi ce ID: [id number] Ap lable Time: 01:00:00 PM Cassy Membreno MD [address], [place], [address], [facility] 11:44:37 Screenin g for malignan t neoplasm of cervix Completed 201102/13/2021 Screenin g for malignan t neoplasm s of the cervix;R ecorded Elsewher e: No [facility]at [facility] S ource: EHR Log [employer] Chain Feeder rachelle: N Valeriyti ce ID: [id number] Ap lable Time: 01:00:00 PM Cassy Membreno MD [address], [place], [address], [facility] 11:44:[address] Concept Completed 201702/13/2021 Well woman check w/o abnormal finding; Recorded Elsewher e: No Locat ion: [facility] S ource: EHR [employer] Feeder rachelle: N Practi ce ID: [id number] Ap lable Time: 01:00:00 PM Cassy Membreno MD [address], [place], [address], [facility] 1 11:44:39 Incomple te uterovag inal prolapse [id number] Completed 201702/13/2021 2nd degree uterine prolapse ;Recorde d Elsewher e: No Locat ion: [facility] S ource: EHR [employer] Feeder rachelle: N Practi ce ID: [id number] Ap lable Time: 01:00:[address], [place], [address], [facility] 1 11:44:34 Adult health examinat ion Completed 201102/13/2021 Routine Medical Exam;Rec orded Elsewher e: No Locat ion: [facility] abdalla [facility] S ource: EHR Log [employer] Chain Feeder rachelle: N Practi ce ID: [id number] Ap lable Time: 01:00:00 PM Cassy Membreno MD [address], [place], [address], [facility] 11:44:24 Uterovag inal prolapse 81286377 Active 2020 Cassy Membreno MD [address], [place], [address], [facility] 14:07:21 Midline cystocel e 826235940 Active 2020 Cassy Membreno MD [address], [place], [address], [facility] 14:07:29 Uterine prolapse 74974925 Completed 202002/19/2021 Cassy Membreno MD [address], [place], [address], [facility] 09:07:23 Body mass index 30+ - obesity 029634044 Active 2020 Cassy Membreno MD [address], [place], [address], [facility] 09:07:32 Vaginal pessary in situ 4366671570 104 Active 2021 Cassy Membreno MD [address], [place], [address], [facility] 2 12:45:16 Problem Notes None recorded. Procedures Surgical History Date Name Laterality Status Provider Name and Address Organization Details Recorded Time 023 Most Recent [facility] 12/09/2022 10:38:18 023 Date of Last Mammogram completed [facility] 12/09/2022 10:38:04 021 Pessary Insertion completed Cassy Membreno MD [address], [place], [address], [facility] 02/19/2021 11:50:22 018 Date of Last Pap Smear completed [facility] 02/13/2021 11:42:41 983 cholecystectomy completed [facility] 02/13/2021 11:46:59 979 Tubal Ligation completed [facility] 02/13/2021 11:46:43 Cryotherapy/Cryoca utery completed [facility] 02/13/2021 09:22:14 colonoscopy completed [facility] 02/13/2021 09:22:21 Imaging Results None recorded. Procedure Notes None recorded. Medical Equipment None Reported. Allergies Allergen ID Allergen Name Allergen Category Reaction Reaction Severity Criticality Documentation Date Start Date Code Code System Note Provider Name and Address Organization Details Recorded Time 10447 codeine medicatio n Not available Not available Not available 03/02/2020 4620 RxNorm Comme nt: Locat [facility]: [facility]; Not Available [facility] 0 14:24:31 Medications Name Sig Start Date Stop Date Status Note LastModified by Organization Details LastModified Time amoxicill in 500 mg capsule TAKE FOUR CAPSULES BY MOUTH ONE HOUR BEFORE APPOINTM ENT 12/09 completed Not Available Not Available Not Available azithromy betina 250 mg tablet TAKE 2 TABLETS BY MOUTH ON DAY 1, AND THEN TAKE 1 TABLET BY MOUTH ONCE A DAY ON DAY 2 THROUGH DAY 5 12/09 completed Not Available Not Available Not Available lisinopri l 20 mg tablet TAKE 1 TABLET BY MOUTH ONCE DAILY active Not Available Not Available No t Available prednison e 20 mg tablet TAKE 2 TABLETS BY MOUTH ONCE DAILY WITH FOOD FOR 5 DAYS 12/09 completed Not Available Not Available Not Available ketorolac 0.5 % eye drops INSTILL 1 DROP INTO OPERATIV E EYE THREE TIMES DAILY STARTING 2 DAYS BEFORE SURGERY. CONTINUE FOR 2 WEEKS AFTER. 12/09 completed Not Available Not Available Not Available prednisol one acetate 1 % eye drops,vikki pension INSTILL 1 DROP INTO OPERATIV E EYE THREE TIMES DAILY STARTING AFTER SURGERY. CONTINUE FOR 3 WEEKS. 12/09 completed Not Available Not Available Not Available ciproflox acin 0.3 % eye drops INSTILL 1 DROP INTO AFFECTED EYE THREE TIMES DAILY 12/09 completed Not Available Not Available Not Available estradiol 0.01% (0.1 mg/gram) vaginal cream ESTRIOL/ ESTRADIO L[50/50] 0.02% VAGINAL CREAM (GLYCERI N LIQUID, PCCA ELLAGE VAGINAL CREAM) 2022 active Not Available Not Available Not Avai lablara Rodback Headache Powder 650 mg oral packet 02/13 completed Prescrib ed Elsewher e: Yes Loca tion: Yunior abdalla [facility] odify By: mer sorenson DateTime : 06/05/19 12 01:00:00 PM Not Available Not Available Not Available Fiber (psyllium husk) 0.52 gram capsule 06/04 completed Prescrib ed Elsewher e: Yes Loca tion: Yunior abdalla [facility] odify By: mer sorenson DateTime : 06/04/19 12 07:12:07 PM Not Available Not Available Not Available Calcio Alisha 500 mg tablet 02/13 completed Prescrib ed Elsewher e: Yes Loca tion: Yunior abdalla [facility] odify By: madyson Douglas [email or web address] DateTime : 06/04/19 12 07:12:07 PM Not Available Not Available Not Available Vitamin D3 125 mcg (5,000 unit) tablet 09/27 completed Prescrib ed Elsewher e: Yes Loca tion: Yunior abdalla [facility] odify By: anbirk E ncounter DateTime : 06/05/19 12 01:00:00 PM Not Available Not Available Not Available ID NOW COVID-19 Test Kit TEST DIRECTED TODAY 02/13 completed Not Available Not Available Not Available Vitals Date Recorded Body height Body mass index (BMI) Body weight Systolic blood pressure Diastolic blood pressure Provider Name and Address Organization Details Last Updated DateTime 05/01/2021 160.02 cm 33.3 kg/m2 09354.37 g 127 mm[Hg] 85 mm[Hg] [facility] 2 11:52:20 Date Recorded Body height Body mass index (BMI) Body weight Systolic blood pressure Diastolic blood pressure Provider Name and Address Organization Details Last Updated DateTime 06/13/2022 160.02 cm 36 kg/m2 16509.25 g 134 mm[Hg] 78 mm[Hg] [facility] 3 15:36:05 Date Recorded Body height Body mass index (BMI) Body weight Systolic blood pressure Diastolic blood pressure Provider Name and Address Organization Details Last Updated DateTime 06/26/2021 160.02 cm 34.5 kg/m2 13133.51 g 120 mm[Hg] 72 mm[Hg] [facility] 2 14:00:01 Date Recorded Body height Body mass index (BMI) Body weight Systolic blood pressure Diastolic blood pressure Provider Name and Address Organization Details Last Updated DateTime 07/19/2021 160.02 cm 34.9 kg/m2 11481.7 g 131 mm[Hg] 79 mm[Hg] [facility] 2 11:33:52 Date Recorded Body height Body mass index (BMI) Body weight Systolic blood pressure Diastolic blood pressure Provider Name and Address Organization Details Last Updated DateTime 12/09/2022 160.02 cm 35.6 kg/m2 22481.07 g 121 mm[Hg] 76 mm[Hg] [facility] 3 10:37:51 Social History Question Answer Notes LastModified by Organizat ion Details LastModified Time Tobacco Smoking Status Never Smoker Benny Demetrio [facility] 02/19/2021 09:28:53 Has Tobacco Cessation Counseling Been Provided? No [email or web address] Information not available 02/19/2021 Sex: Unknown Functional Status Question Answer Note LastModified by Organizat ion Details LastModified Time Do you use any illicit or recreational drugs? No Information not available 02/13/2021 Do you or have you ever used any other forms of tobacco or nicotine? No [email or web address] Information not available 02/19/2021 What is your level of alcohol consumption? Occasional Information not available 02/13/2021 Mental Status None recorded. Family History Nothing Reported Notes:Father: Cancer, lung M other: Coronary artery disease Medical History Condition Response Allergies (Food, seasonal, environmental ) N Other N Breast Cancer N Drug/Latex Allergies/Reactions N Blood Transfusion N Dermatologic Disorders N Lung Disease N Defects or Inherited Disease N Breast Problem N Gestational Diabetes N Hematologic disorders N Anesthesia Complications N History of STI N Deep Vein Thrombosis N Polycystic ovary syndrome N Anxiety Disorder N Autoimmune disease N Arthritis N Infertility N Polyps N Acid Reflux (GERD) N History of abnormal pap N Cancer N Stroke N Varicosities N Neurologic/Epilepsy N Endometriosis N High Cholesterol N Headaches N Fibromyalgia N Kidney Disease N Heart Problems N Kidney or Bladder Problems N Thyroid Problems N GI Problems N Eating Disorder N Anemia N Art (IVF or FET) N Psychiatric Illness N Ovarian Cancer N Diabetes N Pulmonary (TB, Asthma) N Hepatitis/Liver Disease N No Past Medical History N Eczema N Urinary Tract Infection N Abuse/Domestic Violence N Asthma N Trauma/Violence N Depression/ depression N Heart Disease N Pre-Eclampsia N Hypertension N Osteoporosis N Thrombophilias N Gynecological History Statement/Question Response Date of Last Pap Smear 04/24/2017 Date of Last Mammogram 03/16/2022 Date of Last Colonoscopy Most Recent Bone Density 04/16/2022 Obstetrics History GPAL:G 2 P 2 0 0 2 Type Value Full Term 2 Living 2 Total 2 Past Encounters Encounter ID Performer Location Encounter Start Date Encounter Closed Date Diagnosis/Indication Diagnosis SNOMED-CT Code Diagnosis ICD10 Code Diagnosis Note [id number] Cassy Membreno MD [facility] [address] [address] 02/13/2021 11:32:19 02/15/2021 09:10:32 Midline cystocele 621697489 N81.11 Increased frequency of urination 522941810 R35.0 Uterovaginal prolapse 18 956576 N81.4 [id number] MD Jassi Ford [address],[place] [address] 02/19/2021 09:25:26 02/19/2021 12:08:28 Midline cystocele 239967333 N81.11 Uterovaginal prolapse 18 659760 N81.4 Fitting of pessary 86416 002 Z46.89 [id number] Cassy Membreno MD [place] [address],[place] [address] 04/05/2021 11:24:46 04/05/2021 14:41:25 Vaginal pessary in situ 0931692318 104 Z96.0 [id number] Cassy Membreno MD [place] [address],[place] [address] 05/01/2021 11:35:53 05/03/2021 11:44:25 Vaginal pessary in situ 6167500790 104 Z96.0 Midline cystocele 418163 003 N81.11 Uterovaginal prolapse 18 743679 N81.4 [id number] Cassy Membreno MD [place] [address],[place] [address] 06/26/2021 13:49:51 06/26/2021 14:53:38 Midline cystocele 662465371 N81.11 Vaginal pe ssary in situ 8717867540 104 Z96.0 [id number] Cassy Membreno MD [place] [address],[place] [address] 07/19/2021 11:24:23 07/19/2021 14:09:05 Low back pain 256716037 M54.50 Microscopic hematuria 19 2534624 R31.29 [id number] Cassy Membreno MD [place] [address],[place] [address] 06/13/2022 15:08:12 06/13/2022 16:59:46 History of hematuria 671058185 Z87.448 Vaginal pe ssary in situ 8139614264 104 Z96.0 Atrophic vaginitis 71276 000 N95.2 [id number] Cassy Membreno MD [place] [address] [address] 12/09/2022 10:21:40 12/10/2022 10:20:52 Gynecologic examination 70733927 Z01.419 Midline cystocele 363348 003 N81.11 Uterovaginal prolapse 18 [id number] N81.4 Vaginal pe ssary in situ [id number] 104 Z96.0 Health Concerns Section Related Observation LastModified by Organization Detai ls LastModified Time None Recorded Concern Status LastModified by Organization Details LastModified Time None Recorded Advance Directives Directive None Recorded Payers Encounter Date Sequence Insurance Name Policy Number Policy Cheema Covered Member ID Cheema Member ID Guarantor Name 05/01/2021 2 [id number] Valerie K Jaros [id number] Valerie K Jaros 05/01/2021 1 [place] Valerie K Jaros [id number] Valerie K Jaros 06/26/2021 2 [place] [id number] Valerie K Jaros [id number] Valerie K Jaros 06/26/2021 1 [place] Valerie K Jaros [id number] Valerie K Jaros 07/19/2021 2 [place] [id number] Valerie K Jaros [id number] Valerie K Jaros 07/19/2021 1 [place] Valerie K Jaros [id number] Valerie K Jaros 06/13/2022 2 [place] [id number] Valerie K Jaros [id number] Valerie K Jaros 06/13/2022 1 [place] Valerie K Jaros [id number] 19 Valerie K Jaros 12/09/2022 2 [place] [id number] Valerie K Jaros [id number] Valerie K Jaros 12/09/2022 1 [place] Valerie K Jaros [id number] Valerie Sheridan Notes Date Note Type Note Provider Name and Address Organization Details Recorded Time 05/01/2021 text/html Here for pessary follow up for cystocele and uterine prolapse. Inserted 04/05. Using estrace 3x/week. Thinks it is too big. Has BLQ groin pain with it in, also pressure on the bladder. Twice wore it all day and was sore. Often takes it out after a few hours because of discomfort. Cassy Membreno MD [address], [place], [address], [facility] 05/08/2021 12:46:14 06/26/2021 text/html here for replacement of new pessary. 6 ring was uncomfortable, 5 ring here for insertion. stopped estrace cream, ran out. would like cheaper option. Cassy Membreno MD [address], [place], [address], [facility] 06/26/2021 14:34:16 07/19/2021 text/html 70yo here for right back pain for a week, started after working in the yard. worried about kidney infection. no urinary symptoms, no fever. smaller pessary replaced 06/26 and she is doing great with it. it is comfortable, she can easily get it in and out, and it is helping all her sx. using estrace cream 3 weeks. Cassy Membreno MD [address], [place], [address], [facility] 07/19/2021 13:55:52 06/13/2022 text/html Here complaining of dry vagina. Using pessary, but getting harder to take it in and out. Stopped estrace about 4 mos ago, wasn't sure she was supposed to continue. No bleeding or unusual discharge, just feels dry and irritated. Had hematuria last visit, was supposed to do repeat UA, never did. Denies urinary sx other than occasional leaking. Cassy Membreno MD [address], [place], [address], [facility] 06/13/2022 16:59:18 12/09/2022 text/html Patient is a 72y o who presents for an annual exam. Doing fine with pessary, using compounded estrogen cream 2x/week. No concerns last pap-2017, all normal mammo-10/2022 colonoscopy-had appt recently but had to cancel due to covid exposure, needs to RS dexa-04/2022 normal menopause-yes sexually active-n seatbelts-y exercise-y depression-denies domestic violence-denies tobacco-n concerns-n Cassy Membreno MD [address], [place], [address], [facility] 12/10/2022 09:44:12 OBGyn Episode Ob Episode Information Episode Created Date Number of Fetuses Patient Bloodtype Patient rh Status Prepregnancy Weight lbs Domestic Partner Domestic Partner Phone Father Name Hydraulic Jack Mechanic Status 02/14/20 21 1 CLOSED Fetus Data First Name Last Name Admitted to NICU Weight (g) Sex Living Outcome Pediatric Complications Fetus ID Race Codes Race Delivery Type M [id number] Vaginal Delivery Juice Calculation Initial Juice Date Initial Exam Date Initial Exam Provider Initial Ultrasound Date Last Menstrual Period Date Ultra Sound Weeks Gestation 0 Eighteen To Twenty Week Juice Update Ultra Sound Date Fundal Height At Umbil Quickening Date Ultra Sound Latest Weeks Gestation Final Juice Confirmed By Final Juice Confirmed Date Final Juice Date Ultra Sound Latest Days Gestation 0 0 Menstrual History Last Menstrual Date Menses Monthly On Bcp Conception Prior Menses Frequency Hcg Plus Date Menarche Onset Age Delivery Information Delivery Date Delivery Type Labor Anesthesia Weeks Gestation Incision Type Labor Labor Length Hrs Delivered By Post Complications Tubal Sterilization Discharge Date Comments 5 Discharge Information Feeding Method Contraceptive Method Maternal HG B and HCT Levels Ob Episode Information Episode Created Date Number of Fetuses Patient Bloodtype Patient rh Status Prepregnancy Weight lbs Domestic Partner Domestic Partner Phone Father Name Hydraulic Jack Mechanic Status 02/14/20 21 1 CLOSED Fetus Data First Name Last Name Admitted to NICU Weight (g) Sex Living Outcome Pediatric Complications Fetus ID Race Codes Race Delivery Type M [id number] Vaginal Delivery Juice Calculation Initial Juice Date Initial Exam Date Initial Exam Provider Initial Ultrasound Date Last Menstrual Period Date Ultra Sound Weeks Gestation 0 Eighteen To Twenty Week Juice Update Ultra Sound Date Fundal Height At Umbil Quickening Date Ultra Sound Latest Weeks Gestation Final Juice Confirmed By Final Juice Confirmed Date Final Juice Date Ultra Sound Latest Days Gestation 0 0 Menstrual History Last Menstrual Date Menses Monthly On Bcp Conception Prior Menses Frequency Hcg Plus Date Menarche Onset Age Delivery Information Delivery Date Delivery Type Labor Anesthesia Weeks Gestation Incision Type Labor Labor Length Hrs Delivered By Post Complications Tubal Sterilization Discharge Date Comments 9 Discharge Information Feeding Method Contraceptive Method Maternal HG B and HCT Levels
--- OUTSIDE RECORDS SUMMARY | 2024-08-18 12:16 | XMS_ITS | Data Portability ---
Author Organization [facility], Main Office Address [address] [place] [address] Care Team Providers Care Project Surveyor Name Role Phone ADRIAN MOHR Primary Care Provider ADRIAN MOHR Referring Provider [phone] Assessment No assessment recorded. Plan of Treatment Reminders Order Date Submit Date Provider Last Modified By Organization Details Last Modified Time Details Appointments None recorded. Lab CBC w/ auto diff 2024 025 [id number] [facility], [address], [place], [address], 5 09:43:40 CMP, serum or plasma 2024 025 [id number] [facility], [address], [place], [address], 5 09:43:40 lipid panel, serum 2024 025 [email or web address] [facility], [address], [place], [address], 5 09:43:40 T4, free, serum 2024 025 [id number] [facility], [address], [place], [address], 5 09:43:41 TSH, serum or plasma 2024 025 [id number] [facility], [address], [place], [address], 5 09:43:41 unlisted lab - cystatin C with eGFR 2024 025 [id number] [facility], [address], [place], [address], 5 09:43:41 CBC w/ auto diff 2023 024 [facility], [address] [place], [address], 4 11:05:53 CMP, serum or plasma 2023 024 [facility], [address] [place], [address], 4 11:05:52 lipid panel, serum 2023 024 [facility], [address] [place], [address], 4 11:05:50 TSH, serum or plasma 2023 024 [facility], [address] [place], [address], 4 11:05:56 T4, free, serum 2023 024 [facility], [address] [place], [address], 4 11:05:54 lipid panel, serum [id number] [place] [address] Outpatient Lab, [address] [place], [address], 4 09:42:42 CMP, serum or plasma [id number] [place] [address] Outpatient Lab, [address] [place], [address], 4 09:42:42 T4, free, serum 2023 024 [email or web address] [facility], [address] [place], [address], 4 09:42:42 TSH, serum or plasma 2023 024 [id number] [facility], [address] [place], [address], 4 09:42:42 CBC w/ auto diff 2023 024 [id number] [facility], [address] [place], [address], 4 09:42:42 vitamin D, 25-hydroxy , total, serum 2022 023 [facility], [address] [place], [address], 3 04:53:05 CBC w/ auto diff 2022 023 [facility], [address] [place], [address], 3 04:53:02 CMP, serum or plasma 2022 023 [facility], [address] [place], [address], 3 04:53:01 lipid panel, serum 2022 023 [facility], [address] [place], [address], 3 04:52:59 TSH, serum or plasma 2022 023 [facility], [address] [place], [address], 3 04:53:04 T4, free, serum 2022 023 [facility], [address] [place], [address], 3 04:53:03 iron + total iron-stephen ng capacity (TIBC), serum 2022 023 [facility], [address] [place], [address], 10:02:24 CBC w/ auto diff 2022 023 [facility], [address] [place], [address], 10:02:25 vitamin B12, serum 2022 023 [facility], [address] [place], [address], 10:02:26 Referral None recorded. Procedures None recorded. Surgeries None recorded. Imaging None recorded. Medication Orders None recorded. Patient TargetsNo targets recorded. Patient Instructions Encounter Date Encounter Id Patient Instructions Last Modified By Organization Details Last Modified Time 07/22/2022 [id number] Hypertension -cl ass two obesity- PICA for crushed ice. Continue on current medications. Will check blood work consisting of CBC, serum iron level iron binding capacity and ferritin level. Check a CMP. Also needs a mammogram. Follow-up in six months. Mammogram [email or web address] Not available 07/22/2022 11:05:33 01/27/2023 [id number] dementia rating scale-2* [email or web address] Not available 01/27/2023 11:20:55 alcohol misuse* [email or web address] Not available 01/27/2023 11:20:55 depression screening* [email or web address] Not available 01/27/2023 11:20:55 Timed Up and Go test (TUG)* [email or web address] Not available 01/27/2023 11:20:55 multi-dimensiona l health assessment questionnaire* [email or web address] Not available 01/27/2023 11:20:55 Personalized a lt Plan and Screening Recommendations Advance Directives - Do you have one? Yes Advance Directives - Do we have your advance directive on file in your health record? No, please bring in a copy at your earliest convenience Primary Prevention/Interven tion (prevents or decreases the chance of common diseases from occurring) Smoking Risk: Non Smoker Alcohol Misuse Screening: Negative Weight: Overweight try to lose 10% of your body weight Physical activity: Need more exercise/physical activity Nutrition: Average Refer to attached handout Heart-Healthy Diet: After Your Visit Refer to attached handout DASH Diet: After Your Visit Recommend consultation with a welding equipment repairer supervisor Eat heart healthy diet Fall Risk (screened today): Low Vaccines Pneumococcal: No further needed Influenza: Your next one in the fall of this year Chronic Disease Risks Stroke: Intermediate Risk Active diagnosis, Continue current treatment plan Heart Attack: Low risk I have no recommendations Clogging of the Arteries: Low risk I have no recommendations Diabetes: Intermediate Risk Drastically limit sugar and products made with any type of flour (bread, pasta, cereal, cookies, crackers, etc.) Secondary Prevention/Interven tion (detects treatable diseases before they may cause symptoms, disability, or ) Breast Cancer Screening with mammogram: Your next mammogram: Ordered Recommended today Recommended today, but you have declined No screening necessary up to date Cervical/Uterine/Ov nas Cancer Screening: No screening necessary Osteoporosis Screening: Your next DEXA in: Ordered Recomme nded today Recommended today, but you have declined No screening necessary up to date Date Screening Last Performed: Colon Cancer Screening: Colonoscopy Recommended Date Screening Last Performed: __2017____ Eye Disease Screening: Ordered Recommended today Recommended today, but you have declined No Eye exam necessary Your next exam in: goes yearly Dementia Risk: Low I have no recommendations Depression Screening: Negative Recommend additional evaluation and/or treatment as noted above Recommend follow appointment to further evaluate Recommend Behavioral Health referral Active diagnosis, Continue current treatment plan I have no recommendations [email or web address] Not available 01/27/2023 11:04:44 Adult health examination [...] with voice recognition software. Occasional wrong-word or ovfun-v-[id number] substitutions may have occurred due to the inherent limitations of voice recognition software. Read the chart carefully and recognize, using context, where substitutions have occurred. Follow-up colonoscopy for polyps. Cardiology consult for atypical exertional shortness of breath and chest discomfort Next Appt: 6 Months Approximate Date: 07/26/2023 [email or web address] Not available 01/27/2023 11:20:12 07/28/2023 [id number] Follow-up hypertension, hyperlipidemia and obesity class two all clinically stable. Will check a CBC, CMP, thyroid and lipid panel. Continue on current Rx follow-up in six months. Next Appointment: 6 Months Approximate Date: 01/24/2024 Portions of the record may have been created with voice recognition software. Occasional wrong-word or pglrn-v-shom substitutions may have occurred due to the inherent limitations of voice recognition software. Read the chart carefully and recognize, using context, where substitutions have occurred. [email or web address] Not available 07/28/2023 10:44:23 02/02/2024 [id number] dementia rating scale-2* [email or web address] Not available 02/02/2024 11:11:05 alcohol misuse* [email or web address] Not available 02/02/2024 11:11:04 depression screening* [email or web address] Not available 02/02/2024 11:11:04 multi-dimensiona l health assessment questionnaire* Not available 02/02/2024 11:11:05 Personalized a lt Plan and Screening Recommendations Advance Directives - Do you have one? Yes Advance Directives - Do we have your advance directive on file in your health record? No, please bring in a copy at your earliest convenience Primary Prevention/Interven tion (prevents or decreases the chance of common diseases from occurring) Smoking Risk: Non Smoker Alcohol Misuse Screening: Negative Weight: Overweight try to lose 10% of your body weight Physical activity: Need more exercise/physical activity Nutrition: Average Refer to attached handout Heart-Healthy Diet: After Your Visit Refer to attached handout DASH Diet: After Your Visit Recommend consultation with a welding equipment repairer supervisor Eat heart healthy diet Fall Risk (screened today): Low Vaccines Pneumococcal: No further needed Influenza: Your next one in the fall of this year Chronic Disease Risks Stroke: Intermediate Risk Active diagnosis, Continue current treatment plan Heart Attack: Intermediate Risk Active diagnosis, Continue current treatment plan Clogging of the Arteries: Intermediate Risk Active diagnosis, Continue current treatment plan Diabetes: Intermediate Risk Drastically limit sugar and products made with any type of flour (bread, pasta, cereal, cookies, crackers, etc.) Secondary Prevention/Interven tion (detects treatable diseases before they may cause symptoms, disability, or ) Breast Cancer Screening with mammogram: Recommended today Cervical/Uterine/Ov nas Cancer Screening: No screening necessary Osteoporosis Screening: Recommended today Date Screening Last Performed: Colon Cancer Screening: Colonoscopy In: Ordered Recomme nded Recommended today, but you have declined No screening necessary due 2028 Date Screening Last Performed: ____ Eye Disease Screening: Ordered Recommended today Recommended today, but you have declined No Eye exam necessary Your next exam in: goes every 2 yrs Dementia Risk: Low I have no recommendations Depression Screening: Negative Recommend additional evaluation and/or treatment as noted above Recommend follow appointment to further evaluate Recommend Behavioral Health referral Active diagnosis, Continue current treatment plan I have no recommendations [email or web address] Not available 02/02/2024 11:04:08 Medicare wellnes s [...] with voice recognition software. Occasional wrong-word or clccr-c-[id number] substitutions may have occurred due to the inherent limitations of voice recognition software. Read the chart carefully and recognize, using context, where substitutions have occurred. [email or web address] Not available 02/02/2024 11:10:43 08/02/2024 [id number] Follow-up scales ry artery disease, hypertension, hyperlipidemia obesity class two. All clinically stable. Will continue on current Rx check blood work consisting of CBC, CMP, lipid, thyroid and cystatin-C level to check renal function. Otherwise is clinically doing well. Follow-up in six months Follow Up: 6 Months Approximate Date: 01/29/2025 Portions of record are template driven. When necessary additional context will be provided. Additionally some portions have been created with voice recognition software. Occasional wrong-word or jecxg-n-omox substitutions may have occurred due to the inherent limitations of voice recognition software. Read the chart carefully and recognize, using context, where substitutions may have occurred. Created: Adrian Mohr M.D. 08.02.2024 09:53 AM [email or web address] Not available 08/02/2024 10:53:17 Reason for Referral None Reported. Results Created Date Observation Date Name Description Value Unit Range Abnormal Flag Note LastModifiedBy Organization Detail LastModifiedTime 07/26/1907/26/2022 IRON AND TOTAL IRON STEPHEN NG CAPAC ITY iron, total 47 mcg/d L 45-160 normal Not Available [address], [address], 07/26/2022 10:02:24 07/26/1907/26/2022 IRON AND TOTAL IRON STEPHEN NG CAPAC ITY iron binding capacity 365 mcg/d L_(ca lc) 250-45 0 normal Not Available [address], [address], 07/26/2022 10:02:24 07/26/19 23 07/26/2022 IRON AND TOTAL IRON STEPHEN NG CAPAC ITY % saturation 13 %_(ca lc) 16-45 low Not Available [address], [address], 07/26/2022 10:02:24 07/26/1907/26/2022 CBC (INCL UDES DIFF/ PLT) white blood cell count 5.4 thous and/u L 3.8-10 .8 normal Not Available [facility] [address], [address], 07/26/2022 10:02:25 05/12/20 23 07/26/2022 CBC (INCL UDES DIFF/ PLT) red blood cell count 4.15 brendan on/uL 3.80-5 .10 normal Not Available [address], [address], 07/26/2022 10:02:25 07/26/19 23 07/26/2022 CBC (INCL UDES DIFF/ PLT) hemoglobin 11.6 g/dL 11.7-1 5.5 low Not Available [address], [address], 07/26/2022 10:02:25 07/26/1907/26/2022 CBC (INCL UDES DIFF/ PLT) hematocrit 37.1 % 35.0-4 5.0 normal Not Available [address], [address], 07/26/2022 10:02:25 07/26/1907/26/2022 CBC (INCL UDES DIFF/ PLT) MCV 89.4 fL 80.0-1 00.0 normal Not Available [address], [address], 07/26/2022 10:02:25 07/26/19 23 07/26/2022 CBC (INCL UDES DIFF/ PLT) MCH 28.0 pg 27.0-3 3.0 normal Not Available [address], [address], 07/26/2022 10:02:25 07/26/1907/26/2022 CBC (INCL UDES DIFF/ PLT) MCHC 31.3 g/dL 32.0-3 6.0 low Not Available [address], [address], 07/26/2022 10:02:25 07/26/1907/26/2022 CBC (INCL UDES DIFF/ PLT) RDW 13.8 % 11.0-1 5.0 normal Not Available [address], [address], 07/26/2022 10:02:25 07/26/1907/26/2022 CBC (INCL UDES DIFF/ PLT) platelet count 259 thous and/u L 140-40 0 normal Not Available [address], [address], 07/26/2022 10:02:25 07/26/1907/26/2022 CBC (INCL UDES DIFF/ PLT) MPV 8.9 fL 7.5-12 .5 normal Not Available [address], [address], 07/26/2022 10:02:25 07/26/1907/26/2022 CBC (INCL UDES DIFF/ PLT) absolute neutrophils 2619 cells /uL 1500-7 800 normal Not Available [address], [address], 07/26/2022 10:02:25 07/26/1907/26/2022 CBC (INCL UDES DIFF/ PLT) absolute lymphocytes 1863 cells /uL 850-39 00 normal Not Available [address], [address], 07/26/2022 10:02:25 07/26/1907/26/2022 CBC (INCL UDES DIFF/ PLT) absolute monocytes 410 cells /uL 200-95 0 normal Not Available [address], [address], 07/26/2022 10:02:25 07/26/1907/26/2022 CBC (INCL UDES DIFF/ PLT) absolute eosinophils 416 cells /uL 15-500 normal Not Available [address], [address], 07/26/2022 10:02:25 07/26/1907/26/2022 CBC (INCL UDES DIFF/ PLT) absolute basophils 92 cells /uL 0-200 normal Not Available [address], [address], 07/26/2022 10:02:25 07/26/19 23 07/26/2022 CBC (INCL UDES DIFF/ PLT) neutrophils 48.5 % normal Not Available [address], [address], 07/26/2022 10:02:25 07/26/1907/26/2022 CBC (INCL UDES DIFF/ PLT) lymphocytes 34.5 % normal Not Available [address], [address], 07/26/2022 10:02:25 07/26/1907/26/2022 CBC (INCL UDES DIFF/ PLT) monocytes 7.6 % normal Not Available [address], [address], 07/26/2022 10:02:25 07/26/1907/26/2022 CBC (INCL UDES DIFF/ PLT) eosinophils 7.7 % normal Not Available [address], [address], 07/26/2022 10:02:25 07/26/1907/26/2022 CBC (INCL UDES DIFF/ PLT) basophils 1.7 % normal Not Available [address], [address], 07/26/2022 10:02:25 07/26/1907/26/2022 VITAM IN B12 vitamin [...] pg/mL will have sympt oms. Not Available [facility] [address] [address] [place], [address], 07/26/2022 10:02:26 02/03/2002/03/2023 LIPID PANEL , STAND ZORA cholesterol, total 205 mg/dL <200 high Not Available [facility] [address] [place], [address], 02/03/2023 04:52:59 02/03/2002/03/2023 LIPID PANEL , STAND ZORA HDL cholesterol 52 mg/dL > or = 50 normal Not Available [facility] [address], [address], 02/03/2023 04:52:59 02/03/2002/03/2023 LIPID PANEL , STAND ZORA triglyceride s 220 mg/dL <150 high If a non-f astin g speci men was colle cted, consi emilio repea t trigl yceri de testi ng on a fasti ng speci men if clini delta indic ated. Naresh khan et al. J. of Clin. Lipid ol. 2015; 9:129 -169. Not Available [facility] [address], [address], 02/03/2023 04:52:59 02/03/2002/03/2023 LIPID PANEL , STAND ZORA LDL-choleste rol 119 mg/dL _(christopher c) high Refer ence range : <100 Mile able range <100 mg/dL for prima ry preve ntion ; <70 mg/dL for patie nts with CHD or diabe tic patie nts with > or = 2 CHD risk facto rs. LDL-C is now calcu lated using the [facility] mineu lorri oseguera, which is a valid ated novel metho d provi iván rojaste r accur acy than the Fried esther equat ion in the estim ation of LDL-C . Wendy n SS et al. YOLANDA. 2013; 310(1 9): 2061- 2068 (http ://ed ucati on.Qu regiStephany jose fSaveMeeting. com/f aq/FA Q164) Not Available [address], [address], 02/03/2023 04:52:59 02/03/20 23 02/03/2023 LIPID PANEL , STAND ZORA chol/HDLC ratio 3.9 (calc ) <5.0 normal Not Available [address], [address], 02/03/2023 04:52:59 02/03/20 23 02/03/2023 LIPID PANEL , STAND ZORA non HDL cholesterol 153 mg/dL _(christopher c) <130 high For patie nts with diabe colby plus 1 major ASCVD risk facto r, treat ing to a non-H DL-C goal of <100 mg/dL (LDL- C of <70 mg/dL ) is consi rea rondon n. Not Available [address] [address] [place], [address], 02/03/2023 04:52:59 02/03/20 23 02/03/2023 COMPR EHENS THIEN METAB OLIC PANEL glucose 95 mg/dL 65-99 normal Fasti ng refer ence inter [email or web address] Not Available [address] [address] [place], [address], 02/03/2023 04:53:01 02/03/20 23 02/03/2023 COMPR EHENS THIEN METAB OLIC PANEL urea nitrogen (BUN) 15 mg/dL 7-25 normal Not Available [address] [address] [place], [address], 02/03/2023 04:53:01 02/03/20 23 02/03/2023 COMPR EHENS THIEN METAB OLIC PANEL creatinine 1.08 mg/dL 0.60-1 .00 high Not Available [address], [address], 02/03/2023 04:53:01 02/03/20 23 02/03/2023 COMPR EHENS THIEN METAB OLIC PANEL eGFR 54 mL/mi n/1.7 3m2 > or = 60 low Not Available [address], [address], 02/03/2023 04:53:01 02/03/20 23 02/03/2023 COMPR EHENS THIEN METAB OLIC PANEL BUN/creatini ne ratio 14 (calc ) 6-22 normal Not Available [address], [address], 02/03/2023 04:53:01 02/03/20 23 02/03/2023 COMPR EHENS THIEN METAB OLIC PANEL sodium 140 mmol/ L 135-14 6 normal Not Available [address], [address], 02/03/2023 04:53:01 02/03/20 23 02/03/2023 COMPR EHENS THIEN METAB OLIC PANEL potassium 4.2 mmol/ L 3.5-5. 3 normal Not Available [address], [address], 02/03/2023 04:53:01 02/03/20 23 02/03/2023 COMPR EHENS THIEN METAB OLIC PANEL chloride 105 mmol/ L 98-110 normal Not Available [address], [address], 02/03/2023 04:53:01 02/03/20 23 02/03/2023 COMPR EHENS THIEN METAB OLIC PANEL carbon dioxide 27 mmol/ L 20-32 normal Not Available [address], [address], 02/03/2023 04:53:01 02/03/20 23 02/03/2023 COMPR EHENS THIEN METAB OLIC PANEL calcium 8.6 mg/dL 8.6-10 .4 normal Not Available [address], [address], 02/03/2023 04:53:01 02/03/20 23 02/03/2023 COMPR EHENS THIEN METAB OLIC PANEL protein, total 6.6 g/dL 6.1-8. 1 normal Not Available [address], [address], 02/03/2023 04:53:01 02/03/20 23 02/03/2023 COMPR EHENS THIEN METAB OLIC PANEL albumin 3.9 g/dL 3.6-5. 1 normal Not Available [address], [address], 02/03/2023 04:53:01 02/03/20 23 02/03/2023 COMPR EHENS THIEN METAB OLIC PANEL globulin 2.7 g/dL_ (calc ) 1.9-3. 7 normal Not Available [address], [address], 02/03/2023 04:53:01 02/03/20 23 02/03/2023 COMPR EHENS THIEN METAB OLIC PANEL albumin/glob ulin ratio 1.4 (calc ) 1.0-2. 5 normal Not Available [address], [address], 02/03/2023 04:53:01 02/03/20 23 02/03/2023 COMPR EHENS THIEN METAB OLIC PANEL bilirubin, total 0.4 mg/dL 0.2-1. 2 normal Not Available [address], [address], 02/03/2023 04:53:01 02/03/20 23 02/03/2023 COMPR EHENS THIEN METAB OLIC PANEL alkaline phosphatase 74 U/L 37-153 normal Not Available [address], [address], 02/03/2023 04:53:01 02/03/20 23 02/03/2023 COMPR EHENS THIEN METAB OLIC PANEL AST 12 U/L 10-35 normal Not Available [address], [address], 02/03/2023 04:53:01 02/03/20 23 02/03/2023 COMPR EHENS THIEN METAB OLIC PANEL ALT 7 U/L 6-29 normal Not Available [address], [address], 02/03/2023 04:53:01 02/03/20 23 02/03/2023 CBC (INCL UDES DIFF/ PLT) white blood cell count 5.8 thous and/u L 3.8-10 .8 normal Not Available [address], [address], 02/03/2023 04:53:02 02/03/20 23 02/03/2023 CBC (INCL UDES DIFF/ PLT) red blood cell count 4.15 brendan on/uL 3.80-5 .10 normal Not Available [address], [address], 02/03/2023 04:53:02 02/03/20 23 02/03/2023 CBC (INCL UDES DIFF/ PLT) hemoglobin 11.1 g/dL 11.7-1 5.5 low Not Available [address], [address], 02/03/2023 04:53:02 02/03/20 23 02/03/2023 CBC (INCL UDES DIFF/ PLT) hematocrit 35.4 % 35.0-4 5.0 normal Not Available [address], [address], 02/03/2023 04:53:02 02/03/20 23 02/03/2023 CBC (INCL UDES DIFF/ PLT) MCV 85.3 fL 80.0-1 00.0 normal Not Available [address], [address], 02/03/2023 04:53:02 02/03/20 23 02/03/2023 CBC (INCL UDES DIFF/ PLT) MCH 26.7 pg 27.0-3 3.0 low Not Available [address], [address], 02/03/2023 04:53:02 02/03/20 23 02/03/2023 CBC (INCL UDES DIFF/ PLT) MCHC 31.4 g/dL 32.0-3 6.0 low Not Available [address], [address], 02/03/2023 04:53:02 02/03/20 23 02/03/2023 CBC (INCL UDES DIFF/ PLT) RDW 14.5 % 11.0-1 5.0 normal Not Available [address], [address], 02/03/2023 04:53:02 02/03/20 23 02/03/2023 CBC (INCL UDES DIFF/ PLT) platelet count 261 thous and/u L 140-40 0 normal Not Available [address], [address], 02/03/2023 04:53:02 02/03/20 23 02/03/2023 CBC (INCL UDES DIFF/ PLT) MPV 9.3 fL 7.5-12 .5 normal Not Available [address], [address], 02/03/2023 04:53:02 02/03/20 23 02/03/2023 CBC (INCL UDES DIFF/ PLT) absolute neutrophils 2645 cells /uL 1500-7 800 normal Not Available [address], [address], 02/03/2023 04:53:02 02/03/20 23 02/03/2023 CBC (INCL UDES DIFF/ PLT) absolute lymphocytes 2094 cells /uL 850-39 00 normal Not Available [address], [address], 02/03/2023 04:53:02 02/03/2002/03/2023 CBC (INCL UDES DIFF/ PLT) absolute monocytes 435 cells /uL 200-95 0 normal Not Available [address], [address], 02/03/2023 04:53:02 02/03/20 23 02/03/2023 CBC (INCL UDES DIFF/ PLT) absolute eosinophils 499 cells /uL 15-500 normal Not Available [address], [address], 02/03/2023 04:53:02 02/03/20 23 02/03/2023 CBC (INCL UDES DIFF/ PLT) absolute basophils 128 cells /uL 0-200 normal Not Available [address], [address], 02/03/2023 04:53:02 02/03/20 23 02/03/2023 CBC (INCL UDES DIFF/ PLT) neutrophils 45.6 % normal Not Available [address], [address], 02/03/2023 04:53:02 02/03/20 23 02/03/2023 CBC (INCL UDES DIFF/ PLT) lymphocytes 36.1 % normal Not Available [address], [address], 02/03/2023 04:53:02 02/03/20 23 02/03/2023 CBC (INCL UDES DIFF/ PLT) monocytes 7.5 % normal Not Available [address], [address], 02/03/2023 04:53:02 02/03/20 23 02/03/2023 CBC (INCL UDES DIFF/ PLT) eosinophils 8.6 % normal Not Available [address], [address], 02/03/2023 04:53:02 02/03/20 23 02/03/2023 CBC (INCL UDES DIFF/ PLT) basophils 2.2 % normal Not Available [address], [address], 02/03/2023 04:53:02 02/03/20 23 02/03/2023 T4, FREE T4, free 0.9 NG/dL 0.8-1. 8 normal Not Available [address], [address], 02/03/2023 04:53:03 02/03/20 23 02/03/2023 TSH TSH 1.64 mIU/L 0.40-4 .50 normal Not Available [address], [address], 02/03/2023 04:53:04 02/03/20 23 02/03/2023 VITAM IN [...] /MS is recom kanu d: order code 15980 (memo ents >2yrs ). See Note 1 Note 1 For addit ional infor lashae segura refer to http: //padmini Chris stDia gnost ics.c om/fa q/FAQ 199 (This link is being provi ded for infor muna machuca/ educchan villagran purpo ses only. ) Not Available [facility] [address] [address] [place], [address], 02/03/2023 04:53:05 08/14/1908/15/2023 LIPID PANEL , STAND ZORA cholesterol, total 128 mg/dL <200 normal Not Available [facility] [address] [place], [address], 08/15/2023 11:50:25 08/14/19 24 08/15/2023 LIPID PANEL , STAND ZORA HDL cholesterol 56 mg/dL > or = 50 normal Not Available [facility] [address], [address], 08/15/2023 11:50:25 08/14/1908/15/2023 LIPID PANEL , STAND ZORA triglyceride s 229 mg/dL <150 high If a non-f astin g speci men was colle cted, consi emilio repea t trigl yceri de testi ng on a fasti ng speci men if clini delta indic ated. Naresh khan et al. J. of Clin. Lipid ol. 2015; 9:129 -169. Not Available [facility] [address] [place], [address], 08/15/2023 11:50:25 08/14/1908/15/2023 LIPID PANEL , STAND [place]ORA LDL-choleste rol 43 mg/dL _(christopher c) normal Refer ence range : <100 Mile able range <100 mg/dL for prima ry preve ntion ; <70 mg/dL for patie nts with CHD or diabe tic patie nts with > or = 2 CHD risk facto rs. LDL-C is now calcu lated using the Wendy n-Hop kins traci blackmon n, which is a valid ated novel metho d provi ding harpreet r accur acy than the Fried esther equat ion in the estim ation of LDL-C . Wendy oseguera SS et al. YOLANDA. 2013; 310(1 9): 2061- 2068 (http ://ed ucati on.Qu estDi Dynamighty. com/f aq/FA Q164) Not Available [facility] [address] [address] [place], [address], 08/15/2023 11:50:25 08/14/19 24 08/15/2023 LIPID PANEL , STAND ZORA chol/HDLC ratio 2.3 (calc ) <5.0 normal Not Available [address], [address], 08/15/2023 11:50:25 08/14/19 24 08/15/2023 LIPID PANEL , STAND ZORA non HDL cholesterol 72 mg/dL _(christopher c) <130 normal For patie nts with diabe colby plus 1 major ASCVD risk facto r, treat ing to a non-H DL-C goal of <100 mg/dL (LDL- C of <70 mg/dL ) is consi markd a tima gilson herrera optio n. Not Available [facility] [address] [address] [place], [address], 08/15/2023 11:50:25 08/14/19 24 08/15/2023 COMPR EHENS THIEN METAB OLIC PANEL glucose 95 mg/dL 65-99 normal Fasti ng refer ence inter olayinka Not Available [facility] [address] [address] [place], [address], 08/15/2023 11:50:26 08/14/19 24 08/15/2023 COMPR EHENS THIEN METAB OLIC PANEL urea nitrogen (BUN) 15 mg/dL 7-25 normal Not Available [address], [address], 08/15/2023 11:50:26 08/14/19 24 08/15/2023 COMPR EHENS THIEN METAB OLIC PANEL creatinine 1.17 mg/dL 0.60-1 .00 high Not Available [address], [address], 08/15/2023 11:50:26 08/14/19 24 08/15/2023 COMPR EHENS THIEN METAB OLIC PANEL eGFR 49 mL/mi n/1.7 3m2 > or = 60 low Not Available [address], [address], 08/15/2023 11:50:26 08/14/19 24 08/15/2023 COMPR EHENS THIEN METAB OLIC PANEL BUN/creatini ne ratio 13 (calc ) 6-22 normal Not Available [address], [address], 08/15/2023 11:50:26 08/14/19 24 08/15/2023 COMPR EHENS THIEN METAB OLIC PANEL sodium 141 mmol/ L 135-14 6 normal Not Available [address], [address], 08/15/2023 11:50:26 08/14/19 24 08/15/2023 COMPR EHENS THIEN METAB OLIC PANEL potassium 4.4 mmol/ L 3.5-5. 3 normal Not Available [address], [address], 08/15/2023 11:50:26 08/14/19 24 08/15/2023 COMPR EHENS THIEN METAB OLIC PANEL chloride 106 mmol/ L 98-110 normal Not Available [address], [address], 08/15/2023 11:50:26 08/14/19 24 08/15/2023 COMPR EHENS THIEN METAB OLIC PANEL carbon dioxide 26 mmol/ L 20-32 normal Not Available [address], [address], 08/15/2023 11:50:26 08/14/19 24 08/15/2023 COMPR EHENS THIEN METAB OLIC PANEL calcium 9.1 mg/dL 8.6-10 .4 normal Not Available [address], [address], 08/15/2023 11:50:26 08/14/19 24 08/15/2023 COMPR EHENS THIEN METAB OLIC PANEL protein, total 6.6 g/dL 6.1-8. 1 normal Not Available [address], [address], 08/15/2023 11:50:26 08/14/19 24 08/15/2023 COMPR EHENS THIEN METAB OLIC PANEL albumin 3.9 g/dL 3.6-5. 1 normal Not Available [address], [address], 08/15/2023 11:50:26 08/14/19 24 08/15/2023 COMPR EHENS THIEN METAB OLIC PANEL globulin 2.7 g/dL_ (calc ) 1.9-3. 7 normal Not Available [address], [address], 08/15/2023 11:50:26 08/14/19 24 08/15/2023 COMPR EHENS THIEN METAB OLIC PANEL albumin/glob ulin ratio 1.4 (calc ) 1.0-2. 5 normal Not Available [address], [address], 08/15/2023 11:50:26 08/14/19 24 08/15/2023 COMPR EHENS THIEN METAB OLIC PANEL bilirubin, total 0.4 mg/dL 0.2-1. 2 normal Not Available [address], [address], 08/15/2023 11:50:26 08/14/19 24 08/15/2023 COMPR EHENS THIEN METAB OLIC PANEL alkaline phosphatase 65 U/L 37-153 normal Not Available [facility] [employer] [address], [address], 08/15/2023 11:50:26 08/14/19 24 08/15/2023 COMPR EHENS THIEN METAB OLIC PANEL AST 17 U/L 10-35 normal Not Available [address], [address], 08/15/2023 11:50:26 08/14/19 24 08/15/2023 COMPR EHENS THIEN METAB OLIC PANEL ALT 11 U/L 6-29 normal Not Available [address], [address], 08/15/2023 11:50:26 08/14/19 24 08/15/2023 CBC (INCL UDES DIFF/ PLT) white blood cell count 6.3 thous and/u L 3.8-10 .8 normal Not Available [facility] [address], [address], 08/15/2023 11:50:27 08/14/19 24 08/15/2023 CBC (INCL UDES DIFF/ PLT) red blood cell count 4.03 brendan on/uL 3.80-5 .10 normal Not Available [address], [address], 08/15/2023 11:50:27 08/14/19 24 08/15/2023 CBC (INCL UDES DIFF/ PLT) hemoglobin 11.0 g/dL 11.7-1 5.5 low Not Available [facility] [address], [address], 08/15/2023 11:50:27 08/14/19 24 08/15/2023 CBC (INCL UDES DIFF/ PLT) hematocrit 34.4 % 35.0-4 5.0 low Not Available [address], [address], 08/15/2023 11:50:27 08/14/19 24 08/15/2023 CBC (INCL UDES DIFF/ PLT) MCV 85.4 fL 80.0-1 00.0 normal Not Available [address], [address], 08/15/2023 11:50:27 08/14/19 24 08/15/2023 CBC (INCL UDES DIFF/ PLT) MCH 27.3 pg 27.0-3 3.0 normal Not Available [address], [address], 08/15/2023 11:50:27 08/14/19 24 08/15/2023 CBC (INCL UDES DIFF/ PLT) MCHC 32.0 g/dL 32.0-3 6.0 normal Not Available [address], [address], 08/15/2023 11:50:27 08/14/19 24 08/15/2023 CBC (INCL UDES DIFF/ PLT) RDW 14.8 % 11.0-1 5.0 normal Not Available [address], [address], 08/15/2023 11:50:27 08/14/19 24 08/15/2023 CBC (INCL UDES DIFF/ PLT) platelet count 230 thous and/u L 140-40 0 normal Not Available [address], [address], 08/15/2023 11:50:27 08/14/19 24 08/15/2023 CBC (INCL UDES DIFF/ PLT) MPV 9.4 fL 7.5-12 .5 normal Not Available [address], [address], 08/15/2023 11:50:27 08/14/19 24 08/15/2023 CBC (INCL UDES DIFF/ PLT) absolute neutrophils 2930 cells /uL 1500-7 800 normal Not Available [address], [address], 08/15/2023 11:50:27 08/14/19 24 08/15/2023 CBC (INCL UDES DIFF/ PLT) absolute lymphocytes 2300 cells /uL 850-39 00 normal Not Available [address], [address], 08/15/2023 11:50:27 08/14/19 24 08/15/2023 CBC (INCL UDES DIFF/ PLT) absolute monocytes 504 cells /uL 200-95 0 normal Not Available [address], [address], 08/15/2023 11:50:27 08/14/19 24 08/15/2023 CBC (INCL UDES DIFF/ PLT) absolute eosinophils 485 cells /uL 15-500 normal Not Available [address], [address], 08/15/2023 11:50:27 08/14/19 24 08/15/2023 CBC (INCL UDES DIFF/ PLT) absolute basophils 82 cells /uL 0-200 normal Not Available [facility] [address], [address], 08/15/2023 11:50:27 08/14/19 24 08/15/2023 CBC (INCL UDES DIFF/ PLT) neutrophils 46.5 % normal Not Available [address], [address], 08/15/2023 11:50:27 08/14/19 24 08/15/2023 CBC (INCL UDES DIFF/ PLT) lymphocytes 36.5 % normal Not Available [address], [address], 08/15/2023 11:50:27 08/14/19 24 08/15/2023 CBC (INCL UDES DIFF/ PLT) monocytes 8.0 % normal Not Available [address], [address], 08/15/2023 11:50:27 08/14/19 24 08/15/2023 CBC (INCL UDES DIFF/ PLT) eosinophils 7.7 % normal Not Available [address], [address], 08/15/2023 11:50:27 08/14/19 24 08/15/2023 CBC (INCL UDES DIFF/ PLT) basophils 1.3 % normal Not Available [address], [address], 08/15/2023 11:50:27 08/14/19 24 08/15/2023 T4, FREE T4, free 1.0 NG/dL 0.8-1. 8 normal Not Available [address], [address], 08/15/2023 11:50:28 08/14/19 24 08/15/2023 TSH TSH 0.86 mIU/L 0.40-4 .50 normal Not Available [address], [address], 08/15/2023 11:50:29 02/03/20 24 02/04/2024 LIPID PANEL , STAND ZORA cholesterol, total 179 mg/dL <200 normal Not Available [address], [address], 02/04/2024 11:05:50 02/03/20 24 02/04/2024 LIPID PANEL , STAND [place] HDL cholesterol 50 mg/dL > or = 50 normal Not Available [address], [address], 02/04/2024 11:05:50 02/03/20 24 02/04/2024 LIPID PANEL , STAND Z[place]A triglyceride s 190 mg/dL <150 high Not Available [address], [address], 02/04/2024 11:05:50 02/03/20 24 02/04/2024 LIPID PANEL [...] calcu lated using the Wendy oseguera-Hop kins calcu lorri n, which is a valid ated novel metho d provi ding harpreet r accur acy than the Fried esther equat ion in the estim ation of LDL-C . Wendy oseguera SS et al. YOLANDA. 2013; 310(1 9): 2061- 2068 (http ://ed ucati on.Ann Marie delunaBreathing Buildings. com/f aq/FA Q164) Not Available [address], [address], 02/04/2024 11:05:50 02/03/20 24 02/04/2024 LIPID PANEL , STAND ZORA chol/HDLC ratio 3.6 (calc ) <5.0 normal Not Available [address], [address], 02/04/2024 11:05:50 02/03/20 24 02/04/2024 LIPID PANEL , STAND Z[place] non HDL cholesterol 129 mg/dL _(christopher c) <130 normal For patie nts with diabe colby plus 1 major ASCVD risk facto r, treat ing to a non-H DL-C goal of <100 mg/dL (LDL- C of <70 mg/dL ) is brigette avilao n. Not Available [address] [address] [place], [address], 02/04/2024 11:05:50 02/03/20 24 02/04/2024 COMPR EHENS THIEN METAB OLIC PANEL glucose 95 mg/dL 65-99 normal Fasti ng refer ence inter olayinka Not Available [address], [address], 02/04/2024 11:05:52 02/03/20 24 02/04/2024 COMPR EHENS THIEN METAB OLIC PANEL urea nitrogen (BUN) 16 mg/dL 7-25 normal Not Available [address], [address], 02/04/2024 11:05:52 02/03/20 24 02/04/2024 COMPR EHENS THIEN METAB OLIC PANEL creatinine 1.21 mg/dL 0.60-1 .00 high Not Available [address], [address], 02/04/2024 11:05:52 02/03/20 24 02/04/2024 COMPR EHENS THIEN METAB OLIC PANEL eGFR 47 mL/mi n/1.7 3m2 > or = 60 low Not Available [address], [address], 02/04/2024 11:05:52 02/03/20 24 02/04/2024 COMPR EHENS THIEN METAB OLIC PANEL BUN/creatini ne ratio 13 (calc ) 6-22 normal Not Available [address], [address], 02/04/2024 11:05:52 02/03/20 24 02/04/2024 COMPR EHENS THIEN METAB OLIC PANEL sodium 139 mmol/ L 135-14 6 normal Not Available [address], [address], 02/04/2024 11:05:52 02/03/20 24 02/04/2024 COMPR EHENS THIEN METAB OLIC PANEL potassium 4.3 mmol/ L 3.5-5. 3 normal Not Available [address], [address], 02/04/2024 11:05:52 02/03/20 24 02/04/2024 COMPR EHENS THIEN METAB OLIC PANEL chloride 107 mmol/ L 98-110 normal Not Available [address], [address], 02/04/2024 11:05:52 02/03/20 24 02/04/2024 COMPR EHENS THIEN METAB OLIC PANEL carbon dioxide 25 mmol/ L 20-32 normal Not Available [address], [address], 02/04/2024 11:05:52 02/03/20 24 02/04/2024 COMPR EHENS THIEN METAB OLIC PANEL calcium 8.7 mg/dL 8.6-10 .4 normal Not Available [address], [address], 02/04/2024 11:05:52 02/03/20 24 02/04/2024 COMPR EHENS THIEN METAB OLIC PANEL protein, total 6.5 g/dL 6.1-8. 1 normal Not Available [address], [address], 02/04/2024 11:05:52 02/03/20 24 02/04/2024 COMPR EHENS THIEN METAB OLIC PANEL albumin 3.8 g/dL 3.6-5. 1 normal Not Available [address], [address], 02/04/2024 11:05:52 02/03/20 24 02/04/2024 COMPR EHENS THIEN METAB OLIC PANEL globulin 2.7 g/dL_ (calc ) 1.9-3. 7 normal Not Available [address], [address], 02/04/2024 11:05:52 02/03/20 24 02/04/2024 COMPR EHENS THIEN METAB OLIC PANEL albumin/glob ulin ratio 1.4 (calc ) 1.0-2. 5 normal Not Available [address], [address], 02/04/2024 11:05:52 02/03/20 24 02/04/2024 COMPR EHENS THIEN METAB OLIC PANEL bilirubin, total 0.4 mg/dL 0.2-1. 2 normal Not Available [address], [address], 02/04/2024 11:05:52 02/03/20 24 02/04/2024 COMPR EHENS THIEN METAB OLIC PANEL alkaline phosphatase 80 U/L 37-153 normal Not Available [address], [address], 02/04/2024 11:05:52 02/03/20 24 02/04/2024 COMPR EHENS THIEN METAB OLIC PANEL AST 15 U/L 10-35 normal Not Available [address], [address], 02/04/2024 11:05:52 02/03/20 24 02/04/2024 COMPR EHENS THIEN METAB OLIC PANEL ALT 11 U/L 6-29 normal Not Available [address], [address], 02/04/2024 11:05:52 02/03/20 24 02/04/2024 CBC (INCL UDES DIFF/ PLT) white blood cell count 5.8 thous and/u L 3.8-10 .8 normal Not Available [address], [address], 02/04/2024 11:05:53 02/03/20 24 02/04/2024 CBC (INCL UDES DIFF/ PLT) red blood cell count 3.98 brendan on/uL 3.80-5 .10 normal Not Available [address], [address], 02/04/2024 11:05:53 02/03/20 24 02/04/2024 CBC (INCL UDES DIFF/ PLT) hemoglobin 11.1 g/dL 11.7-1 5.5 low Not Available [address], [address], 02/04/2024 11:05:53 02/03/20 24 02/04/2024 CBC (INCL UDES DIFF/ PLT) hematocrit 34.8 % 35.0-4 5.0 low Not Available [address], [address], 02/04/2024 11:05:53 02/03/20 24 02/04/2024 CBC (INCL UDES DIFF/ PLT) MCV 87.4 fL 80.0-1 00.0 normal Not Available [address], [address], 02/04/2024 11:05:53 02/03/20 24 02/04/2024 CBC (INCL UDES DIFF/ PLT) MCH 27.9 pg 27.0-3 3.0 normal Not Available [address], [address], 02/04/2024 11:05:53 02/03/20 24 02/04/2024 CBC (INCL UDES DIFF/ PLT) MCHC 31.9 g/dL 32.0-3 6.0 low For adult s, a sligh t decre ase in the calcu lated MCHC value (in the range of 30 to 32 g/dL) is most likel y not clini delta signi phyllis t; rashmi er, it shoul d be inter prete d with cauti on in corre lat n with other red cell kera eters and the patie nt's clini christopher condi tion. Not Available [address], [address], 02/04/2024 11:05:53 02/03/20 24 02/04/2024 CBC (INCL UDES DIFF/ PLT) RDW 13.9 % 11.0-1 5.0 normal Not Available [facility] [address], [address], 02/04/2024 11:05:53 02/03/20 24 02/04/2024 CBC (INCL UDES DIFF/ PLT) platelet count 270 thous and/u L 140-40 0 normal Not Available [address], [address], 02/04/2024 11:05:53 02/03/20 24 02/04/2024 CBC (INCL UDES DIFF/ PLT) MPV 9.9 fL 7.5-12 .5 normal Not Available [address], [address], 02/04/2024 11:05:53 02/03/20 24 02/04/2024 CBC (INCL UDES DIFF/ PLT) absolute neutrophils 2604 cells /uL 1500-7 800 normal Not Available [facility] [address], [address], 02/04/2024 11:05:53 02/03/20 24 02/04/2024 CBC (INCL UDES DIFF/ PLT) absolute lymphocytes 2198 cells /uL 850-39 00 normal Not Available [facility] [address], [address], 02/04/2024 11:05:53 02/03/20 24 02/04/2024 CBC (INCL UDES DIFF/ PLT) absolute monocytes 429 cells /uL 200-95 0 normal Not Available [address], [address], 02/04/2024 11:05:53 02/03/20 24 02/04/2024 CBC (INCL UDES DIFF/ PLT) absolute eosinophils 447 cells /uL 15-500 normal Not Available [address], [address], 02/04/2024 11:05:53 02/03/2002/04/2024 CBC (INCL UDES DIFF/ PLT) absolute basophils 122 cells /uL 0-200 normal Not Available [address], [address], 02/04/2024 11:05:53 02/03/20 24 02/04/2024 CBC (INCL UDES DIFF/ PLT) neutrophils 44.9 % normal Not Available [address], [address], 02/04/2024 11:05:53 02/03/20 24 02/04/2024 CBC (INCL UDES DIFF/ PLT) lymphocytes 37.9 % normal Not Available [address], [address], 02/04/2024 11:05:53 02/03/20 24 02/04/2024 CBC (INCL UDES DIFF/ PLT) monocytes 7.4 % normal Not Available [address], [address], 02/04/2024 11:05:53 02/03/20 24 02/04/2024 CBC (INCL UDES DIFF/ PLT) eosinophils 7.7 % normal Not Available [address], [address], 02/04/2024 11:05:53 02/03/20 24 02/04/2024 CBC (INCL UDES DIFF/ PLT) basophils 2.1 % normal Not Available [address], [address], 02/04/2024 11:05:53 02/03/20 24 02/04/2024 T4, FREE T4, free 1.0 NG/dL 0.8-1. 8 normal Not Available [address], [address], 02/04/2024 11:05:54 02/03/20 24 02/04/2024 TSH TSH 1.10 mIU/L 0.40-4 .50 normal Not Available [address], [address], 02/04/2024 11:05:56 03/30/19 25 03/31/2024 RENAL FUNCT ION PANEL glucose 99 mg/dL 65-99 normal Fasti ng refer ence inter olayinka Not Available [address], [address], 03/31/2024 06:01:53 03/30/19 25 03/31/2024 RENAL FUNCT ION PANEL urea nitrogen (BUN) 18 mg/dL 7-25 normal Not Available [address], [address], 03/31/2024 06:01:53 03/30/19 25 03/31/2024 RENAL FUNCT ION PANEL creatinine 1.24 mg/dL 0.60-1 .00 high Not Available [address], [address], 03/31/2024 06:01:53 03/30/19 25 03/31/2024 RENAL FUNCT ION PANEL eGFR 45 mL/mi n/1.7 3m2 > or = 60 low Not Available [address], [address], 03/31/2024 06:01:53 03/30/1903/31/2024 RENAL FUNCT ION PANEL BUN/creatini ne ratio 15 (calc ) 6-22 normal Not Available [address], [address], 03/31/2024 06:01:53 03/30/19 25 03/31/2024 RENAL FUNCT ION PANEL sodium 139 mmol/ L 135-14 6 normal Not Available [address], [address], 03/31/2024 06:01:53 03/30/1903/31/2024 RENAL FUNCT ION PANEL potassium 4.3 mmol/ L 3.5-5. 3 normal Not Available [address], [address], 03/31/2024 06:01:53 03/30/1903/31/2024 RENAL FUNCT ION PANEL chloride 104 mmol/ L 98-110 normal Not Available [address], [address], 03/31/2024 06:01:53 03/30/1903/31/2024 RENAL FUNCT ION PANEL carbon dioxide 29 mmol/ L 20-32 normal Not Available [address], [address], 03/31/2024 06:01:53 03/30/1903/31/2024 RENAL FUNCT ION PANEL calcium 9.1 mg/dL 8.6-10 .4 normal Not Available [address], [address], 03/31/2024 06:01:53 03/30/1903/31/2024 RENAL FUNCT ION PANEL phosphate ( phosphorus) 4.3 mg/dL 2.1-4. 3 normal Not Available [address], [address], 03/31/2024 06:01:53 03/30/1903/31/2024 RENAL FUNCT ION PANEL albumin 4.0 g/dL 3.6-5. 1 normal Not Available [address], [address], 03/31/2024 06:01:53 08/10/1908/10/2024 LIPID PANEL , STAND ZORA cholesterol, total 143 mg/dL <200 normal Not Available [address], [address], 08/10/2024 13:30:55 08/10/1908/10/2024 LIPID PANEL , STAND ZORA HDL cholesterol 62 mg/dL > or = 50 normal Not Available [address], [address], 08/10/2024 13:30:55 08/10/1908/10/2024 LIPID PANEL , STAND ZORA triglyceride s 172 mg/dL <150 high Not Available [address], [address], 08/10/2024 13:30:55 08/10/1908/10/2024 LIPID PANEL , STAND [place] LDL-choleste rol 56 mg/dL _(christopher c) normal Refer ence range : <100 Mile able range <100 mg/dL for prima ry preve ntion ; <70 mg/dL for patie nts with CHD or diabe tic patie nts with > or = 2 CHD risk facto rs. LDL-C is now calcu lated using the Wendy n-Hop kins calcu latleón n, which is a valid ated novel jacey guardado than the Fried esther equat ion in the estim ation of LDL-C . Wendy oseguera SS et al. YOLANDA. 2013; 310(1 9): 2061- 2068 (http ://ed ucati on.Qu estDi [employer]. com/f aq/FA Q164) Not Available [address], [address], 08/10/2024 13:30:55 08/10/1908/10/2024 LIPID PANEL , STAND ZORA chol/HDLC ratio 2.3 (calc ) <5.0 normal Not Available [address], [address], 08/10/2024 13:30:55 08/10/19 25 08/10/2024 LIPID PANEL , STAND ZORA non HDL cholesterol 81 mg/dL _(christopher c) <130 normal For patie nts with diabe colby plus 1 major ASCVD risk facto r, treat ing to a non-H DL-C goal of <100 mg/dL (LDL- C of <70 mg/dL ) is consi rea a thera peuti c optio n. Not Available [address], [address], 08/10/2024 13:30:55 08/10/19 25 08/10/2024 COMPR EHENS THIEN METAB OLIC PANEL glucose 95 mg/dL 65-99 normal Fasti ng refer ence inter olayinka Not Available [address], [address], 08/10/2024 13:30:56 08/10/19 25 08/10/2024 COMPR EHENS THIEN METAB OLIC PANEL urea nitrogen (BUN) 19 mg/dL 7-25 normal Not Available [address], [address], 08/10/2024 13:30:56 08/10/19 25 08/10/2024 COMPR EHENS THIEN METAB OLIC PANEL creatinine 1.36 mg/dL 0.60-1 .00 high Not Available [address], [address], 08/10/2024 13:30:56 08/10/19 25 08/10/2024 COMPR EHENS THIEN METAB OLIC PANEL eGFR 41 mL/mi n/1.7 3m2 > or = 60 low Not Available [address], [address], 08/10/2024 13:30:56 08/10/19 25 08/10/2024 COMPR EHENS THIEN METAB OLIC PANEL BUN/creatini ne ratio 14 (calc ) 6-22 normal Not Available [address], [address], 08/10/2024 13:30:56 08/10/19 25 08/10/2024 COMPR EHENS THIEN METAB OLIC PANEL sodium 139 mmol/ L 135-14 6 normal Not Available [address], [address], 08/10/2024 13:30:56 08/10/19 25 08/10/2024 COMPR EHENS THIEN METAB OLIC PANEL potassium 4.3 mmol/ L 3.5-5. 3 normal Not Available [address], [address], 08/10/2024 13:30:56 08/10/19 25 08/10/2024 COMPR EHENS THIEN METAB OLIC PANEL chloride 105 mmol/ L 98-110 normal Not Available [address], [address], 08/10/2024 13:30:56 08/10/19 25 08/10/2024 COMPR EHENS THIEN METAB OLIC PANEL carbon dioxide 27 mmol/ L 20-32 normal Not Available [address], [address], 08/10/2024 13:30:56 08/10/19 25 08/10/2024 COMPR EHENS THIEN METAB OLIC PANEL calcium 9.0 mg/dL 8.6-10 .4 normal Not Available [address], [address], 08/10/2024 13:30:56 08/10/19 25 08/10/2024 COMPR EHENS THIEN METAB OLIC PANEL protein, total 6.5 g/dL 6.1-8. 1 normal Not Available [address], [address], 08/10/2024 13:30:56 08/10/1908/10/2024 COMPR EHENS THIEN METAB OLIC PANEL albumin 4.0 g/dL 3.6-5. 1 normal Not Available [address], [address], 08/10/2024 13:30:56 08/10/19 25 08/10/2024 COMPR EHENS THIEN METAB OLIC PANEL globulin 2.5 g/dL_ (calc ) 1.9-3. 7 normal Not Available [address], [address], 08/10/2024 13:30:56 08/10/19 25 08/10/2024 COMPR EHENS THIEN METAB OLIC PANEL albumin/glob ulin ratio 1.6 (calc ) 1.0-2. 5 normal Not Available [address], [address], 08/10/2024 13:30:56 08/10/1908/10/2024 COMPR EHENS THINE METAB OLIC PANEL bilirubin, total 0.5 mg/dL 0.2-1. 2 normal Not Available [address], [address], 08/10/2024 13:30:56 08/10/1908/10/2024 COMPR EHENS THIEN METAB OLIC PANEL alkaline phosphatase 70 U/L 37-153 normal Not Available [address], [address], 08/10/2024 13:30:56 08/10/19 08/10/2024 COMPR EHENS THIEN METAB OLIC PANEL AST 19 U/L 10-35 normal Not Available [address], [address], 08/10/2024 13:30:56 08/10/1908/10/2024 COMPR EHENS THIEN METAB OLIC PANEL ALT 10 U/L 6-29 normal Not Available [address], [address], 08/10/2024 13:30:56 08/10/1908/10/2024 CBC (INCL UDES DIFF/ PLT) white blood cell count 6.2 thous and/u L 3.8-10 .8 normal Not Available [address], [address], 08/10/2024 13:30:57 08/10/1908/10/2024 CBC (INCL UDES DIFF/ PLT) red blood cell count 4.03 brendan on/uL 3.80-5 .10 normal Not Available [address], [address], 08/10/2024 13:30:57 08/10/1908/10/2024 CBC (INCL UDES DIFF/ PLT) hemoglobin 10.9 g/dL 11.7-1 5.5 low Not Available [address], [address], 08/10/2024 13:30:57 08/10/1908/10/2024 CBC (INCL UDES DIFF/ PLT) hematocrit 35.4 % 35.0-4 5.0 normal Not Available [address], [address], 08/10/2024 13:30:57 08/10/19 25 08/10/2024 CBC (INCL UDES DIFF/ PLT) MCV 87.8 fL 80.0-1 00.0 normal Not Available [address], [place], [address], 08/10/2024 13:30:57 08/10/1908/10/2024 CBC (INCL UDES DIFF/ PLT) MCH 27.0 pg 27.0-3 3.0 normal Not Available [facility] [address], [address], 08/10/2024 13:30:57 08/10/1908/10/2024 CBC (INCL UDES DIFF/ PLT) MCHC 30.8 g/dL 32.0-3 6.0 low For adult s, a sligh t decre ase in the calcu lated MCHC value (in the range of 30 to 32 g/dL) is most likel y not clini delta signi fican t; rashmi er, it shoul d be inter prete d with cauti on in [facility] n with other red cell kera eters and the patie nt's clini christopher condi tion. Not Available [facility] [address], [address], 08/10/2024 13:30:57 08/10/1908/10/2024 CBC (INCL UDES DIFF/ PLT) RDW 14.1 % 11.0-1 5.0 normal Not Available [facility] [address], [address], 08/10/2024 13:30:57 08/10/1908/10/2024 CBC (INCL UDES DIFF/ PLT) platelet count 255 thous and/u L 140-40 0 normal Not Available [facility] - [address], [address], 08/10/2024 13:30:57 08/10/1908/10/2024 CBC (INCL UDES DIFF/ PLT) MPV 9.4 fL 7.5-12 .5 normal Not Available [facility] [address], [address], 08/10/2024 13:30:57 08/10/19 25 08/10/2024 CBC (INCL UDES DIFF/ PLT) absolute neutrophils 2809 cells /uL 1500-7 800 normal Not Available [address], [address], 08/10/2024 13:30:57 08/10/19 25 08/10/2024 CBC (INCL UDES DIFF/ PLT) absolute lymphocytes 2430 cells /uL 850-39 00 normal Not Available [address], [address], 08/10/2024 13:30:57 08/10/1908/10/2024 CBC (INCL UDES DIFF/ PLT) absolute monocytes 477 cells /uL 200-95 0 normal Not Available [address], [address], 08/10/2024 13:30:57 08/10/19 25 08/10/2024 CBC (INCL UDES DIFF/ PLT) absolute eosinophils 397 cells /uL 15-500 normal Not Available [address], [address], 08/10/2024 13:30:57 08/10/1908/10/2024 CBC (INCL UDES DIFF/ PLT) absolute basophils 87 cells /uL 0-200 normal Not Available [address], [address], 08/10/2024 13:30:57 08/10/1908/10/2024 CBC (INCL UDES DIFF/ PLT) neutrophils 45.3 % normal Not Available [address], [address], 08/10/2024 13:30:57 08/10/19 25 08/10/2024 CBC (INCL UDES DIFF/ PLT) lymphocytes 39.2 % normal Not Available [address], [address], 08/10/2024 13:30:57 08/10/19 25 08/10/2024 CBC (INCL UDES DIFF/ PLT) monocytes 7.7 % normal Not Available [address], [address], 08/10/2024 13:30:57 08/10/19 25 08/10/2024 CBC (INCL UDES DIFF/ PLT) eosinophils 6.4 % normal Not Available [address], [address], 08/10/2024 13:30:57 08/10/19 25 08/10/2024 CBC (INCL UDES DIFF/ PLT) basophils 1.4 % normal Not Available [address], [address], 08/10/2024 13:30:57 08/10/19 25 08/10/2024 CYSTA TIN C WITH EGFR cystatin C 1.96 mg/L 0.52-1 .10 high Not Available [address], [address], 08/10/2024 13:30:59 08/10/19 25 08/10/2024 CYSTA TIN C WITH EGFR eGFR 28 mL/mi n/1.7 3m2 > or = 60 low Not Available [address], [address], 08/10/2024 13:30:59 08/10/19 25 08/10/2024 T4, FREE T4, free 1.0 NG/dL 0.8-1. 8 normal Not Available [address], [address], 08/10/2024 13:31:00 08/10/19 25 08/10/2024 TSH TSH 2.00 mIU/L 0.40-4 .50 normal Not Available [address], [address], 08/10/2024 13:31:01 10/16/19 23 10/15/2022 MAMMO , scree [place], digit al, bilat eral No observ ation record ed. [address], [place], [address], 10/15/2022 16:57:28 10/17/19 23 10/15/2022 MAMMO , scree [place], digit al, bilat eral No observ ation record ed. [place] [address] [facility] [address], [place], [address], 10/17/2022 08:30:27 10/05/19 24 10/05/2023 MRI, knee, w/o contr ast No observ ation record ed. [address], [place], [address], 10/05/2023 17:52:27 04/12/19 25 04/12/2024 US, renal No observ ation record ed. [address], [place], [address], 04/12/2024 12:37:03 04/12/19 25 04/12/2024 US, renal No observ ation record ed. [address], [place], [address], 04/12/2024 12:39:56 07/08/19 25 07/07/2024 MAMMO , scree [place], bilat eral No observ ation record ed. [address] [facility] [address], [place], [address], 07/07/2024 13:54:33 Result Notes None recorded. Problems Name Problem SNOMED Code Status Onset Date Resolution Date Notes Provider Name and Address Organization Details Recorded Time Irritable bowel syndrome 12361520 Active Not Available [facility] 3 12:55:23 Benign essential hypertensi on 6801296 Active Not Available [facility] 3 12:55:23 Right flank pain 778909269 Active 2016 Not Available [facility] 3 12:55:23 Chest pain 17478090 Active Not Available [facility] 3 12:55:23 Current tear of medial cartilage AND/OR meniscus of knee Active Not Available [facility] 3 12:55:23 Current tear of lateral cartilage AND/OR meniscus of knee Active Not Available [facility] 3 12:55:23 Vitamin D deficiency 42814465 Active 2021 Not Available [facility] 3 12:55:23 Osteoarthr itis 946029812 Active Not Available [facility] 3 12:55:23 Obesity 940025101 Active Not Available [facility] 3 12:55:23 Carpal tunnel syndrome 92928226 Active Not Available [facility] 3 12:55:23 Derangemen t of knee 86726745 Active Not Available [facility] 3 12:55:23 Meralgia parestheti ca 11081102 Active Not Available [facility] 3 12:55:23 Obese class II 9567726944783 05 Active 2022 Adrian Mohr MD [address], [address], [place], [address] , [facility] 3 10:59:44 Pica 11915406 Active 2022 Adrian Mohr MD [address], [address], [place], [address] , [facility] 3 11:01:01 Hyperchole sterolemia 17862322 Active 2023 Adrian Mohr MD [address], [address], [place], [address] , [facility] 4 10:41:19 Coronary arterioscl erosis 19918820 Active 2023 Adrian Mohr MD [address], [address], [place], [address] , [facility] 4 11:04:06 Osteoporos is 04193313 Active 2023 Jyoti polanco, [facility] 4 11:18:50 Serum creatinine above reference range 832143937 Active 2023 Shweta Gutiérrez CMA null, [facility] 4 15:57:26 Chronic renal failure 62706868 Active 2024 Shweta Gutiérrez CMA sherri, [facility] [employer] [facility] 5 12:36:18 Problem Notes None recorded. Procedures Surgical History Date Name Laterality Status Provider Name and Address Organization Details Recorded Time 4 Medicare Wellness CPT Code, subsequent completed Reva Ohara RN [facility] [employer] [facility] 02/02/2024 10:58:48 3 Medicare Wellness CPT Code, subsequent completed Reva Ohara RN [facility] [employer] [facility] 01/27/2023 10:59:11 0 Most Recent Bone Density completed Not Available [facility] 05/14/2022 12:53:07 Imaging Results None recorded. Procedure Notes None recorded. Medical Equipment None Reported. Allergies Allergen ID Allergen Name Allergen Category Reaction Reaction Severity Criticality Documentation Date Start Date Code Code System Note Provider Name and Address Organization Details Recorded Time 54585 codeine medicatio n other Not available Not available 05/14/2022 2670 RxNorm anxie ty ROCHELLE Hdez, [facility] 4 15:30:35 91944 Aleve medicatio n nausea Not available Not available 05/14/2022 41718 1 RxNorm Not Available [facility] 3 12:59:20 38069 Product containin g 3-hydroxy -3-methyl glutaryl- coenzyme A reductase inhibitor (product) medicatio n myalgias (muscle pain) mild low 02/02/2024 52316 009 SNOMED Adrian Mohr MD [address], [address], [place], [address], [facility] 4 11:05:07 Medications Name Sig Start Date Stop Date Status Note LastModified by Organization Details LastModified Time amoxicillin 500 mg capsule TAKE FOUR CAPSULES BY MOUTH ONE HOUR BEFORE APPOINTME NT 08/02 completed Not Available Not Available Not Available prednisone 10 mg tablet TAKE 1 TABLET BY MOUTH TWICE DAILY 08/02 completed Not Available Not Available Not Available atorvastati n 20 mg tablet TAKE [...] applicato rsful every day by vaginal route. 08/02 completed Not Available Not Available Not Available Levaquin 500 mg tablet Take 1 tablet every 24 hours by oral route. active Not Available Not Available No t Available estradiol 0.01% (0.1 mg/gram) vaginal cream active Not Available Not Available Not Available Co Q-10 10 mg capsule Take 1 capsule every day by oral route. active Not Available Not Available No t Available rosuvastati n 10 mg tablet TAKE 1 TABLET BY MOUTH ONCE DAILY active Not Available Not Available No t Available Multivitami n 50 Plus tablet Take 1 tablet every day by oral route. active Not Available Not Available No t Available aspirin 07/22 completed Not Available Not Available Not Available Os-Christopher 500 + D3 once daily 08/02 completed Not Available Not Available Not Available Os-Christopher 500 + D3 500 mg-15 mcg (600 unit) tablet Take 1 tablet every day by oral route. active Not Available Not Available No t Available ID NOW COVID-19 Test Kit TEST DIRECTED TODAY 03/05 completed Not Available Not Available Not Available Vitals Date Recorded Body height Body mass index (BMI) Body weight Heart rate Body temperature Oxygen saturation Oxygen saturation in Arterial blood by Pulse oximetry Systolic blood pressure Diastolic blood pressure Provider Name and Address Organization Details Last Updated DateTime 3 160.02 cm 35.8 kg/m2 06623.6 6 g 90 /min 97 [degF] 98 % 98 % 120 mm[Hg] 64 mm[Hg] [facility] 3 10:40:53 Date Recorded Body height Body mass index (BMI) Body weight Heart rate Body temperature Oxygen saturation Oxygen saturation in Arterial blood by Pulse oximetry Systolic blood pressure Diastolic blood pressure Provider Name and Address Organization Details Last Updated DateTime 4 160.02 cm 36 kg/m2 37483.2 5 g 85 /min 97 [degF] 97 % 97 % 120 mm[Hg] 62 mm[Hg] [facility] 4 10:38:09 Date Recorded Body height Body mass index (BMI) Body weight Heart rate Body temperature Oxygen saturation Oxygen saturation in Arterial blood by Pulse oximetry Systolic blood pressure Diastolic blood pressure Provider Name and Address Organization Details Last Updated DateTime 5 160.02 cm 36.9 kg/m2 41936.0 1 g 83 /min 97 [degF] 97 % 97 % 120 mm[Hg] 64 mm[Hg] Jyoti Mark [facility] [employer] [facility] 5 10:46:18 Date Recorded Body height Body mass index (BMI) Body weight Heart rate Body temperature Oxygen saturation Oxygen saturation in Arterial blood by Pulse oximetry Systolic blood pressure Diastolic blood pressure Provider Name and Address Organization Details Last Updated DateTime 3 160.02 cm 36.8 kg/m2 73922.2 1 g 86 /min 97 [degF] 98 % 98 % 122 mm[Hg] 58 mm[Hg] Jyoti Mark [place] [employer] [facility] [employer] [facility] 3 10:51:37 Date Recorded Body height Body mass index (BMI) Body weight Heart rate Body temperature Oxygen saturation Oxygen saturation in Arterial blood by Pulse oximetry Systolic blood pressure Diastolic blood pressure Provider Name and Address Organization Details Last Updated DateTime 4 160.02 cm 36.3 kg/m2 61837.4 4 g 77 /min 97 [degF] 98 % 98 % 124 mm[Hg] 70 mm[Hg] LEONORA [employer] [facility] [employer] [facility] 4 10:43:21 Social History Question Answer Notes LastModified by Organizat ion Details LastModified Time Tobacco Smoking Status Never Smoker Not Available [facility] 05/14/2022 12:52:54 Do You Have An Advance Directive? Yes MIGRATION.060129 8761 Information not available 05/14/2022 Are You Blind Or Do You Have Difficulty Seeing? No MIGRATION.393055 8192 Information not available 05/14/2022 Are You Deaf Or Do You Have Serious Difficulty Hearing? No MIGRATION.708390 9211 Information not available 05/14/2022 What Type Of Diet Are You Following? REGULAR MIGRATION.550035 0713 Information not available 05/14/2022 Have There Been Any Changes To Your Family Or Social Situation? No MIGRATION.316650 3239 Information not available 05/14/2022 What Is The Fluoride Status Of Your Home? Unknown MIGRATION.434130 0646 Information not available 05/14/2022 Are There Any Guns Present In Your Home? No MIGRATION.041984 2918 Information not available 05/14/2022 Do You Use Insect Repellent Routinely? No MIGRATION.705902 2618 Information not available 05/14/2022 Where Do You Live? [place]House MIGRATION.863301 6791 Information not available 05/14/2022 Guns Present In The Home? No [email or web address] Information not available 01/27/2023 Are You Able To Care For Yourself? Yes [email or web address] Information not available 01/27/2023 Are You Blind Or Do Yo Have Difficulty Seeing? No [email or web address] Information not available 01/27/2023 Are You Deaf Or Do You Have Serious Difficulty Hearing? No [email or web address] Information not available 01/27/2023 Live Alone Of With Others? Alone [email or web address] Information not available 01/27/2023 Do You Have A Medical Power Of [employer]? Yes [email or web address] Information not available 01/27/2023 What Was The Date Of Your Most Recent Tobacco Screening? 02/02/2024 Information not available 02/02/2024 Do You Have Any Pets? No MIGRATION.239571 4472 Information not available 05/14/2022 What Is Your Relationship Status? MIGRATION.109925 0603 Information not available 05/14/2022 Do You Use Your Seat Belt Or Car Seat Routinely? Yes [email or web address] Information not available 01/27/2023 Do You Have Smoke And Carbon Monoxide Detectors In Your Home? Yes MIGRATION.636882 4359 Information not available 05/14/2022 Are You Passively Exposed To Smoke? No MIGRATION.443296 0381 Information not available 05/14/2022 Are There Any Smokers In Your House? No MIGRATION.425965 5766 Information not available 05/14/2022 Do You Use Sunscreen Routinely? No MIGRATION.621356 9132 Information not available 05/14/2022 Do You Have Difficulty Walking Or Climbing Stairs? No MIGRATION.713767 7746 Information not available 05/14/2022 Do You Have Any Dietary Restrictions? No MIGRATION.529493 0019 Information not available 05/14/2022 Sex: Unknown Functional Status Question Answer Note LastModified by Organizat ion Details LastModified Time What is your level of alcohol consumption? Occasional MIGRATION.046563 0175 Information not available 05/14/2022 Do you or have you ever used smokeless tobacco? Never used smokeless tobacco MIGRATION.804381 6806 Information not available 05/14/2022 Do you have transportation difficulties? No MIGRATION.946046 0642 Information not available 05/14/2022 Are you able to walk? YESWOREST MIGRATION.921193 6539 Information not available 05/14/2022 Do you have difficulty doing errands alone? No MIGRATION.872295 5563 Information not available 05/14/2022 Are you able to care for yourself? Yes MIGRATION.455461 5349 Information not available 05/14/2022 Do you have difficulty dressing or bathing? No MIGRATION.912831 2797 Information not available 05/14/2022 Do you or have you ever used e-cigarettes or vape? Never used electronic cigarettes MIGRATION.885950 4261 Information not available 05/14/2022 What is your exercise level? Occasional MIGRATION.259526 1782 Information not available 05/14/2022 Mental Status Question Answer Note LastModified by Organizat ion Details LastModified Time Do you have difficulty concentrating, remembering or making decisions? No MIGRATION.362249112 6 Information not available 05/14/2022 Family History [...] HAVE YOU BEEN HOSPITALIZED OR SEEN IN [facility] IN THE PAST YEAR ? N [...] mcg/0.2 mL 3 completed Shweta Gutiérrez CMA [facility], [facility] [employer] 09/19/2022 10:01:10 Influenza, high-dose, quadrivalent, PF 3 completed Adrian Mohr MD [address] [place] [address], [facility] [address], [place], [address], [facility] [employer] 01/27/2023 11:20:07 Influenza, split virus, quadrivalent, preservative 1 completed Not Available [facility] 05/14/2022 12:59:12 SARS-COV-2 (COVID-19) vaccine, UNSPECIFIED 1 completed Not Available [facility] 05/14/2022 12:59:12 influenza, unspecified formulation 2 completed Not Available [facility] 05/14/2022 12:59:12 COVID-19, mRNA, LNP-S, bivalent, PF, 50 mcg/0.5 mL or 25mcg/0.25 mL dose 2 completed Not Available [facility] 05/14/2022 12:59:12 SARS-COV-2 (COVID-19) vaccine, UNSPECIFIED 1 completed Not Available [facility] 05/14/2022 12:59:12 SARS-COV-2 (COVID-19) vaccine, UNSPECIFIED 1 completed Not Available [facility] 05/14/2022 12:59:12 Pneumococcal conjugate PCV 13 9 completed Not Available [facility] 05/14/2022 12:59:12 zoster live 4 completed Not Available [facility] 05/14/2022 12:59:13 Influenza, split virus, trivalent, preservative 4 completed Not Available [facility] 05/14/2022 12:59:13 Past Encounters Encounter ID Performer Location Encounter Start Date Encounter Closed Date Diagnosis/Indication Diagnosis SNOMED-CT Code Diagnosis ICD10 Code Diagnosis Note [id number] Adrian Mohr MD [facility] Internal Med [facility] [address] [place] [address] y , [place] [address] 08/21/2020 00:00:00 08/21/2020 12:51:25 [id number] Adrian Mohr MD [facility] Internal Med [place] [address] [place] [address] [place] [address] 03/05/2021 00:00:00 03/05/2021 12:31:03 [id number] Adrian Mohr MD [facility] Internal Med [place] [address] [place] [address] [place] [address] 01/21/2022 00:00:00 01/21/2022 11:04:18 [id number] Adrian Mohr MD [facility] Internal Med [facility] [address] [place] [address] [place] [address] 07/22/2022 10:32:32 07/22/2022 11:12:19 Benign essential hypertension 1456757 I10 Obese class II 210404908 1 12189 E66.9 Pica 58024889 F50.89 [id number] Adrian Mohr MD [facility] Internal Med [place] [address] [place], [place] [address] 01/27/2023 10:42:29 01/27/2023 11:25:50 Administration of influenza vaccine 41210979 Z23 Adult heal th examination 217294157 Z00.00 Screening for disorder 601726201 Z13.9 Benign ess ential hypertension 8063727 I10 Chest pain 02965362 R07. 9 Obese class II 590651484 1 87797 E66.9 Vitamin D deficiency 347 76535 E55.9 [id number] Adrian Mohr MD [facility] [address] [place] [address] [address], [place] [address] 07/28/2023 10:36:25 07/28/2023 10:53:17 Benign essential hypertension 7594768 I10 Hypercholesterolemia 136 53672 E78.00 Obese class II 562951350 1 85988 E66.9 [id number] Adrian Mohr MD [facility] Primary Care [facility] [address] [facility] [address] [place] [address] 02/02/2024 10:29:33 02/02/2024 11:26:44 Adult health examination 944629935 Z00.00 Screening for disorder 932845739 Z13.9 Benign ess ential hypertension 7933224 I10 Hypercholesterolemia 136 70966 E78.00 Coronary arteriosclerosis 11091886 I25.10 Obesity 667312295 E66.9 [id number] Adrian Mohr MD [facility] Internal Med [facility] [address] [facility], [facility] [address] [place] [address] 08/02/2024 10:45:35 08/02/2024 10:56:04 Benign essential hypertension 6388763 I10 Coronary arteriosclerosis 97960445 I25.10 Hypercholesterolemia 136 51315 E78.00 Obese class II 830261868 1 60778 E66.9 Serum crea tinine above reference range 624588860 R79.89 Health Concerns Section Related Observation LastModified by Organization Detai ls LastModified Time None Recorded Concern Status LastModified by Organization Details LastModified Time None Recorded Advance Directives Directive Y: Payers Encounter Date Sequence Insurance Name Policy Number Policy Cheema Covered Member ID Cheema Member ID Guarantor Name 07/22/2022 1 [place] Valerie K Jaros [id number] Valerie K Jaros 07/22/2022 2 [place] [id number] Valerie K Jaros [id number] Valerie K Jaros 01/27/2023 1 [place] Valerie K Jaros [id number] Valerie K Jaros 01/27/2023 2 [place] [id number] Valerie K Jaros [id number] Valerie K Jaros 07/28/2023 1 [place] Valerie K Jaros [id number] Valerie K Jaros 07/28/2023 2 [place] [id number] Valerie K Jaros [id number] Valerie K Jaros 02/02/2024 1 [place] Valerie K Jaros [id number] Valerie K Jaros 02/02/2024 2 [place] [id number] Valerie K Jaros [id number] Valerie K Jaros 08/02/2024 1 [place] Valerie K Jaros [id number] Valerie K Jaros 08/02/2024 2 [place] [id number] Valerie K Jaros [id number] Valerie K Jaros Notes Date Note Type Note Provider Name and Address Organization Details Recorded Time 07/23/19 23 text/htm l Patient Name: Valerie Herron JarosDate Of Service: Thursday ( 07.22.2022 ): 1950 [...] Symptoms: none Medication Reconciliation: from medication list. Zpvpdinonlx85/13/2022: 02/25/2022: Bone density scan demonstrates normal bone [...] HtnADRs List Reviewed 07/22/2022leve NauseaCodeine AnxietyVaccination and Fwfxhwcopvlc6193-13 Jhwzsscvm4058-51 Covid Bxukiye9138-39 Pneumovax 713648-61 Prevnar 13Surgical HistoryCholecystectomy, Tubal LigationPreventative Testing Confirmed by Our Bhkefbc0102/25/2022 DEXA SCAN02/13/2022 ALBUMIN 3.8 G/DL05/16/2021 MAMMOGRAM /07/2016 COLONOSCOPY (5 YEARS) 06/18/2021ocial HistoryDoes not smoke. Quit in 1970. Smoked a pack a day for 10 years. Drinks socially. 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 all pneumonia(1) RA(1) COPD(1), CAD(1)Six sisters. Three MVA(1) CAD(2) Adrian Mohr MD [address] [facility], [facility] [address], [place], [address], [facility] [employer] 07/22/2022 11:10:59 01/28/20 23 text/htm l Patient Name: Valerie Herron JarosDate Of Service: Thursday ( 01.27.2023 ): 1950 [...] Systemic Symptoms:none Medication Reconciliation: from medication list. Axhcygolmvl99/13/2022: Bone density scan demonstrates normal bone density. [...] offered to be evaluated and instructed by welding equipment repairer supervisor on weight loss diet.Medication List Reviewed and Reconciled 01/27/2023spirin 81 MG One Daily For Vascular ProphylaxisLisinopril 20 MG (TABLET - ORAL) One Daily For HtnEstrogens Daily As DirectedADRs List Reviewed 01/27/2023leve NauseaCodeine AnxietyVaccination and Iqevninfqjrv1670-01 Jasayjfoq5128-41 Covid Ggwptoo7232-24 Cijfzizyo5502-70 Prevnar 13 Zw5219-94 TdapSurgical HistoryCholecystectomy, Tubal LigationPreventative Testing Confirmed by Our Fvjxfod8610/15/2022 MAMMOGRAM 412/ DEXA SCAN02/13/2022 ALBUMIN 3.8 G/DL N006/18/2016 COLONOSCOPY (5 YEARS) 06/18/2021ocial HistoryDoes not smoke. Quit in 1970. Smoked a pack a day for 10 years. Drinks socially. 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 all pneumonia(1) RA(1) COPD(1), CAD(1)Six sisters. Three MVA(1) CAD(2) Adrian Mohr MD [address] [facility], [facility] [address], [place], [address], [facility] [employer] 01/27/2023 11:21:01 07/28/19 24 text/htm l Patient Name: Valerie Herron JarosDate Of Service: [...] Systemic Symptoms:none Medication Reconciliation: from medication list. Ujmicmjlaai28/13/2022: Bone density scan demonstrates normal bone density. [...] offered to be evaluated and instructed by welding equipment repairer supervisor on weight loss diet. Active Medication ListAspirin 81 MG One Daily For Vascular ProphylaxisLisinopril 20 MG (TABLET - ORAL) One Daily For HtnEstrogens Daily As DirectedCrestor 10 MG TABLET, FILM COATED Once Daily Adverse Drug Reactions ReviewedAleve NauseaCodeine Anxiety Vaccination and Nbwkkcgfbdgo4274-85 Hneqklnxk9614-02 Covid Hwnxkza9069-24 Cpanzqjoy0908-58 Prevnar 13 Mc8087-34 Tdap Surgical Sbgxmlp6599-77 Crrkqpftcgyrldw6578-04 Tubal Ligation Preventative Hdhhkha7104/28/2023 COLONOSCOPY ( 5 YEARS ) / ALBUMIN 3.9 G/DL N010/15/2022 MAMMOGRAM 4104/28/2021 DEXA SCAN Social HistoryDoes not smoke. Quit in 1970. Smoked a pack a day for 10 years. Drinks socially. 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 Family HistoryMother 85 ASHDFather at 67 from [place] of LungThree brothers. all pneumonia(1) RA(1) COPD(1), CAD(1)Six sisters. Three MVA(1) CAD(2) Adrian Mohr MD [address] [facility], [facility] [address], [place], [address], [facility] [employer] 07/28/2023 10:44:56 02/02/20 24 text/htm l Patient Name: aVlerie Herron CarlineosDate Of Service: Thursday ( 02.02.2024 ): 1950 [...] colonic neoplasm screening, mammograms and DEXA Scan. Rlotrikrvnw70/13/2022: Bone density scan demonstrates normal bone density. [...] offered to be evaluated and instructed by welding equipment repairer supervisor on weight loss diet. Wishes to be evaluated by Dietary: No and was offered to be evaluated and instructed by welding equipment repairer supervisor on weight loss diet. Active Medication ListAspirin 81 MG One Daily For Vascular ProphylaxisLisinopril 20 MG (TABLET - ORAL) One Daily For HtnEstrogens Daily As Directed Adverse Drug Reactions ReviewedAleve NauseaCodeine AnxietyAtorvastatin Calcium MyalgiaRosuvastatin Myalgia Vaccination and Immunization(X) 2023-01 INFLUENZA(X) 2010-02 TDAP( ) 2019-02 PREVNAR 13 GC(X) 2021-01 COVID MODERNA( ) 2020-08 PNEUMOVAX Surgical [id number] [id number] Tubal Ligation Preventative Testing( ) 08/14/2023 Albumin 3.9 G/DL N( ) 04/28/2023 Colonoscopy ( 5 Years ) 04/28/2028( ) 10/15/2022 Mammogram 10/15/2024( ) 02/25/2022 DEXA Scan 02/26/2024 Social HistoryDoes not smoke. Quit in 1970. Smoked a pack a day for 10 years. Drinks socially. 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 Family HistoryMother 85 ASHDFather at 67 from Ca of LungThree brothers. all pneumonia(1) RA(1) COPD(1), CAD(1)Six sisters. Three MVA(1) CAD(2) Active Medication ListAspirin 81 MG One Daily For Vascular ProphylaxisLisinopril 20 MG (TABLET - ORAL) One Daily For HtnEstrogens Daily As Directed Adverse Drug Reactions ReviewedAleve NauseaCodeine AnxietyAtorvastatin Calcium MyalgiaRosuvastatin Myalgia Vaccination and Immunization(X) 2023-01 INFLUENZA(X) 2010-02 TDAP( ) 2019-12 PREVNAR 13 GC(X) 2020- COVID MODERNA( ) 2020- PNEUMOVAX Surgical [id number] [id number] Tubal Ligation Preventative Testing( ) 08/14/2023 Albumin 3.9 G/DL N( ) 04/28/2023 Colonoscopy ( 5 Years ) 04/28/2028( ) 10/15/2022 Mammogram 10/15/2024( ) 02/25/2022 DEXA Scan 02/26/2024 Social HistoryDoes not smoke. Quit in 1970. Smoked a pack a day for 10 years. Drinks socially. 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 Family HistoryMother 85 ASHDFather at 67 from Ca of LungThree brothers. all pneumonia(1) RA(1) COPD(1), CAD(1)Six sisters. Three MVA(1) CAD(2) Adrian Mohr MD [address] [facility], [facility] [address], [place], [address], [facility] [employer] [facility] 02/02/2024 11:11:10 08/03/19 25 text/htm l Patient Name: Valerie CrowleyosDate Of Service: Thursday ( 08.02.2024 ): 1950 Age: 73 There has been approximately a 3.5 lb weight gain since 02/02/2024. This represents approximately a 1.7% change in weight. Weight change attributable to lifestyle changes. Vital Signs:Blood Pressure: Sitting Rt. Arm 120/64Pulse: Sitting 83 /min and RegularRespiratory Rate: 16Height 63 in or 1.6 mWeight 208.5 lb or 94.6 kgBMI 36.9Temperature: 97 F or 36.1 CPulse Oximetry: 97 % at rest on no oxygen Chief Complaint: Addressed in HPI Problems or conditions discussed in the HPI were the only ones reviewed during the encounter.Only social and family history addressed in the HPI were reviewed during this encounter. Attendant(s): NoneConstitutional and Systemic Symptoms:none Medication Reconciliation: from medication list. History of Present Illness #1. Coronary Artery Disease: There has been no change in frequency - duration - intensity in frequency, duration or intensity of chest pain. Other Complaints: none The frequency of anginal attacks is none at all. Additional Symptoms: none Therapy reviewed regarding cardiovascular management includes Lisinopril #2. Essential Hypertension: Stage: Stage I Interval Neurological Complaints no headaches, dizziness, weakness, visual changes, ataxia, aphasia and apraxia. No shortness of breath, orthopnea or cardiovascular symptoms. No other symptoms related to end organ damage. Pressure has been under excellent control. Currently normal. No other end organ symptoms or findings. Therapy reviewed regarding management of hypertension and includes salt restriction. #3. Type II Hypercholesterolaemia: Currently taking medication and tolerating well. No interval complaints of any muscle pain or arthralgia. No significant liver changes with medications. Last lipid panel: fair control. Therapy reviewed regarding treatment of cholesterol management and include diet and Rosuvastatin. #4. Hx of obesity. Currently Class 2 Obesity BMI 35-39.99. Has tried numerous dietary support and supplements with no benefit. Instructed on the health consequences of the obese status particularly cancer - diabetes and heart disease. Discussed other modalities of weight loss no . Potential candidate for bariatric surgery: No. Wishes to be evaluated by Dietary: No and was offered to be evaluated and instructed by welding equipment repairer supervisor on weight loss diet. Active Medication ListAspirin 81 MG One Daily For Vascular ProphylaxisLisinopril 20 MG (TABLET - ORAL) One Daily For HtnRosuvastatin 10 MG TABLET One Daily Adverse Drug Reactions ReviewedAleve NauseaCodeine AnxietyAtorvastatin Calcium MyalgiaRosuvastatin Myalgia Vaccination and ImmunizationImmunizations and Vaccinations Discussed and Implemented if feasible In the Office. Else referred to pharmacies. (X) 2022- INFLUENZA(X) 2009- TDAP( ) 2018- PREVNAR 13 GC(X) 2020- COVID MODERNA( ) 2020- PNEUMOVAX Surgical [id number] [id number] Tubal Ligation Preventative TestingPreventative Testing Discussed and Scheduled if Acceptable to Patient ( ) 07/07/2024 Mammogram 07/07/2026( ) 03/30/2024 Albumin 4.0 G/DL N( ) 04/28/2023 Colonoscopy ( 5 Years ) 04/28/2028(X) 02/25/2022 DEXA Scan 02/26/2024 Social HistoryDoes not smoke. Quit in 1970. Smoked a pack a day for 10 years. Drinks socially. 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 Family HistoryMother 85 ASHDFather at 67 from Ca of LungThree brothers. all pneumonia(1) RA(1) COPD(1), CAD(1)Six sisters. Three MVA(1) CAD(2) Adrian Mohr MD [address] [facility], [facility] [address], [place], [address], [facility] 08/02/2024 10:53:44 OBGyn Episode No OBEpisode recorded.
[2024-08-18 13:32] LABS: Creatinine Urine 55.8 mg/dL; Patient Weight 203 Lbs; Total Protein Urine Random 9 mg/dL
[2024-08-18 13:58] LABS: Total Protein Urine 24 Hr 162 mg/24hr (28-141); Total Volume 24 Hour Urine 1800 ml
[2024-08-18 13:59] LABS: Creatinine Clearance Urine 52.6 ml/min (75-125); Serum Creat 1.21
== END 2024-08-18 11:09 | disposition home or self-care (01) ==
LOC: ANHLAB 11:12
PROVIDERS: PCP Internal Medicine; Visit Provider Internal Medicine
DX: N18.9 Chronic kidney disease, unspecified (principal)
CPT/HCPCS: 36415; 81050; 82565; 82575; 84156

== ENCOUNTER 2024-09-13 14:51 | Outpatient (CLI) | payer MEDICARE, SELFPAY ==
--- NOTE | ~2024-09-13 | DEXA_ITS ---
Bone Density Report Name: AIDEN CANAS Age: 73 Sex: Female Ethnicity: White Date of : 1950 Indication: postmenopausal; screening for osteoporosis; Referring Provider: ROGERIO*, ADRIAN Miranda Study: Bone densitometry was performed. Exam Date: September 13, 2024 Accession number: [id number] Bone Density: Region BMD T-score Z-score Classification AP Spine(L1-L4) 1.189 1.3 3.7 Normal Femoral Neck (Left) 0.740 -1.0 1.1 Normal Total Hip (Left) 0.942 0.0 1.8 Normal Femoral Neck (Right) 0.758 -0.8 1.3 Normal Total Hip (Right) 0.979 0.3 2.1 Normal Total Hip Mean 0.960 0.2 2.0 Normal World Health Organization criteria for BMD impression classify patients as: Normal (T-score at or above -1.0), Osteopenia (T-score between -1.0 and -2.5), or Osteoporosis (T-score at or below -2.5). 10-year Fracture Risk: FRAX not reported because: All T-scores for Spine Total, Hip Total, Femoral Neck at or above -1.0 Clinical Information Provided by Patient: Has used the following medications: Vitamin D, Calcium Patient maximum height was 62 Menopause Age: 46 No regular weight bearing exercise Does not regularly consume dairy products Drinks caffeinated beverages Onset of menses at age 10 Number of children 2 Impression: The patient has normal bone mass. Discussion: BONE DENSITY IS ABOVE THE MINIMUM DESIRABLE LEVEL AT ALL SKELETAL SITES TESTED. This patient?s bone mineral density is above the minimum desirable level (T-score -1.0 or better) at all sites measured. The patient should follow a healthful lifestyle (good nutrition with adequate calcium and vitamin D, and appropriate weight-bearing exercise). Follow-Up: Consider repeating this study in 5 years or sooner if there is some new clinical indication. Reported by: EDMOND on 09/13/2024 3:31:00 PM. Reviewed, dictated and finalized at location A.
--- OUTSIDE RECORDS SUMMARY | 2024-09-13 14:54 | XMS_ITS | Referral Summary ---
Author Organization [place] [address] [address] [place] [phone] Care Team Providers Care Crown Ironer Name Role Phone Jakob Mohr MD Primary Care Provider Encounters Date Type Department Care Team Description 08/31/2024 11:00 AM CDT Office Visit [facility] Medical [facility] Cardiology [address] [place] [address] [place] [phone] Rtia Morgan NP Essential hypertension (Primary Dx); SOB (shortness of breath); Swelling 08/12/2024 Orders Only [facility] Medical [facility] Cardiology [address] [place] [address] [place] [phone] ProviderJesus MD 08/12/[address] [phone] Osman Luu MD from Last 3 Months Allergies No known active allergies Medications aspirin 81 mg enteric coated tablet Take 1 tablet (81 mg total) by mouth daily Active estrogens, conjugated, (PREMARIN) vaginal cream Insert into the vagina daily Active lisinopriL (PRINIVIL,ZESTR IL) 20 mg tablet Take 1 tablet (20 mg total) by mouth daily 04/13/2023 Active ascorbic acid, vitamin C, (ascorbic acid) 250 mg tablet,chewable Take 1 tablet/chew tab by mouth daily after lunch Active zinc sulfate (ZINC-15 ORAL) Take 1 tablet by mouth daily after lunch Active calcium carb/vit D3/minerals (CALCIUM-VITAMI N D ORAL) Take 1 tablet by mouth daily Active Bacillus coagulans/inuli n (PROBIOTIC WITH PREBIOTIC ORAL) Take 2 Gum by mouth daily after lunch Active ashsulaimangandha root extract 300 mg tablet Take 1 tablet by mouth daily after lunch Active rosuvastatin (CRESTOR) 10 mg tablet Take 1 tablet (10 mg total) by mouth daily 02/04/2024 Active zajydmzt-elf-qb on-FA-vit K-lut 8 mg iron-400 mcg-50 mcg tablet Take by mouth Active coenzyme Q10 200 mg capsule Take 1 capsule (200 mg total) by mouth daily Active Active Problems Problem Noted Date Diagnosed Date Swelling 08/31/2024 Hyperlipidemia LDL goal <70 06/23/2023 Coronary artery [...] on file 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 Gender Identity Not on file Sexual Orientation Not on file Last Filed Vital Signs Vital Sign Reading Time Taken Comments Blood Pressure 112/58 08/31/2024 10:54 AM CDT Pulse 81 08/31/2024 10:54 AM CDT Temperature 36.3 C (97.3 F) 06/17/2023 11:23 AM CDT Respiratory Rate 22 06/17/2023 3:50 PM CDT Oxygen Saturation 95% 08/31/2024 10:54 AM CDT Inhaled Oxygen Concentration - - Weight 92.5 kg (204 lb) 08/31/2024 10:54 AM CDT Height 160 cm (5' 3) 08/31/2024 10:54 AM CDT Body Mass Index 36.14 08/31/2024 10:54 AM CDT Plan of Treatment Not on file Procedures Procedure Name Priority Date/Time Associated Diagnosis Comments LIPID PANEL Routine 08/09/2024 4:18 PM CDT from Last 3 Months Results * (ABNORMAL) Lipid panel (08/09/2024 4:18 PM CDT) SCRIBED Cholesterol, Total 143 30 - 199 mg/dL EXTERNAL LAB SCRIBED Triglycerides 172(A) <=149 mg/dL EXTERNAL LAB SCRIBED HDL 62 >=40 mg/dL EXTERNAL LAB SCRIBED LDL 56 <=129 mg/dL EXTERNAL LAB Scribed Non-HDL Cholesterol 81 NONE mg/dL EXTERNAL LAB SCRIBED Total Cholesterol/HDL Ratio 143 NONE EXTERNAL LAB Blood us Historical Provider LAB BLOOD ORDERABLES Edit ed Result - Final EXTERNAL LAB from Last 3 Months Insurance MEDICARE [facility] MEDICARE SUPPLEMENT [facility] MEDICARE Care Teams Crown Ironer Relationship Specialty Start Date End Date Jakob Mohr MD [facility] [place] [id number] PCP - General Internal Medicine 06/08/23
--- OUTSIDE RECORDS SUMMARY | 2024-09-13 14:54 | XMS_ITS | Clinical Summary ---
Author Organization [facility] [address] Address [address] [place] [address] Care Team Providers Care Materials Planner Name Role Phone Jakob Mohr MD Primary [...] mg total) by mouth daily 02/04/2024 Active uaaoizbc-bgg-uy on-FA-vit K-lut 8 mg iron-400 mcg-50 mcg [...] Description 08/31/2024 11:00 AM CDT Office Visit [facility] Medical [facility] Cardiology [address] [place] [address] Rita Morgan NP Essential hypertension (Primary Dx); SOB (shortness of breath); Swelling 08/12/2024 Orders Only [facility] Medical [facility] Cardiology [address] [place] [phone] ProviderJesus MD 08/12/2024 Telephone [facility] Cardiology [facility] [address] [place] [address] Osman Luu MD from Last 3 Months Surgical History Surgery [...] on file 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 Gender Identity Not on file Sexual Orientation [...] 08/31/2024 10:54 AM CDT Plan of Treatment Health Maintenance Due Date Last Done Comments Colon Cancer Screening-Colonoscopy 1950 Depression Screening 1950 Fall Risk Assessment 1950 Hepatitis C Screening 1950 Osteoporosis Screening-Bone Density Scan 1950 DTaP/Tdap/Td Vaccine (1 - Tdap) 09/23/1959 Hepatitis B Screening 1966 Zoster Vaccine (2 of 3) 06/03/2013 04/08/2013 Well Visit 65+ 2013 Pneumococcal vaccine 65+ (2 of 2 - PPSV23) 02/23/2020 02/22/2019 Covid-19 Vaccine (2023-2 5 season) 2023 09/12/2022, 02/14/2022, 10/03/2021, Additional history exists Influenza Vaccine (Season Ended) 2024 02/14/2022, 01/17/2021, 12/13/2019, Additional history exists Procedures Procedure Name Priority Date/Time Associated Diagnosis [...] LAB from Last 3 Months Insurance MEDICARE [employer] MEDICARE SUPPLEMENT [facility] MEDICARE Care Teams Materials Planner Relationship Specialty Start Date End Date Jakob Mohr MD [facility] [id number] PCP - General Internal Medicine 06/08/23
--- OUTSIDE RECORDS SUMMARY | 2024-09-13 14:55 | XMS_ITS | Data Portability ---
Author Organization [facility] [place] Address [address] [place] [address] Care Team Providers Care Muffler Hand Name Role Phone ADRIAN EDMONDSON Primary Care Provider Assessment Encounter Date Assessment Date Assessment LastModified by Organization Details LastModified Time 05/01/2021 05/01/2021 will order #5 ri ng (next size down). Pt also feels more comfortable with it parallel in vagina instead of perpendicular. continue estrace cream Not available 05/08/2021 12:45:59 06/26/2021 06/26/2021 pessary placed, will restart estrace, script to compounding pharmacy to help with cost FU 2 mos Not available 06/26/2021 14:34:01 07/19/2021 07/19/2021 urine culture needs repeat UA 2-4 weeks for microscopic hematuria likely musculoskeletal pain- ibuprofen, heat/ice, massage, rest [email or web address] Not available 07/19/2021 13:54:53 06/13/2022 06/13/2022 repeat UA today restart estrace cream- compounded for cost for pt, script sent. discussed needs to continue twice weekly as long as using pessary FU 2-3 mos WWE [email or web address] Not available 06/13/2022 16:49:31 12/09/2022 12/09/2022 healthy female exam/menopause no further paps mammogram UTD colonoscopy- needs to RS dexa due 2027 compounded estrogen refilled doing well with pessary Encouraged weight bearing exercise and 1500mg daily of Calcium with Vitamin D FU 1 year or prn [email or web address] Not available 12/10/2022 09:43:38 Plan of Treatment Reminders Order Date Submit Date Provider Last Modified By Organization Details Last Modified Time Details Appointments None recorded. Lab urinalysis , dipstick [facility] [address], [address], [place], [address], 11:40:32 Referral None recorded. Procedures None recorded. [...] , dark yellow , straw Not Available [facility] (Lab) [address] [place], [address], 07/20/2021 23:05:13 07/20/19 22 07/19/2021 URINA LYSIS , WITH MICRO SCOPI C clarity, urine Clear Not Available [facility] (Lab) [address] [place], [address], 07/20/2021 23:05:13 07/20/19 22 07/19/2021 URINA LYSIS , WITH MICRO SCOPI C glucose, urine Negati ve mg/dL negati ve Not Available [facility] (Lab) [address] [place], [address], 07/20/2021 23:05:13 07/20/19 22 07/19/2021 URINA LYSIS , WITH MICRO SCOPI C bilirubin, urine Negati ve mg/dL negati ve Not Available [facility] (Lab) [address] [place], [address], 07/20/2021 23:05:13 07/20/19 22 07/19/2021 URINA LYSIS , WITH MICRO SCOPI C ketones, urine Negati ve mg/dL negati ve Not Available [facility] (Lab) [address] [facility], [place], [address], 07/20/2021 23:05:13 07/20/19 22 07/19/2021 URINA LYSIS , WITH MICRO SCOPI C pH, urine 5.0 . 5.0-9. 0 Not Available [facility] (Lab) [address] [facility], [place], [address], 07/20/2021 23:05:13 07/20/19 22 07/19/2021 URINA LYSIS , WITH MICRO SCOPI C specific gravity, urine 1.018 . 1.001- 1.035 Not Available [facility] (Lab) [address] [facility], [place], [address], 07/20/2021 23:05:13 07/20/19 22 07/19/2021 URINA LYSIS , WITH MICRO SCOPI C blood, urine Small negati ve abnormal Not Available [facility] (Lab) [address] [facility], [place], [address], 07/20/2021 23:05:13 07/20/19 22 07/19/2021 URINA LYSIS , WITH MICRO SCOPI C protein, UA Negati ve mg/dL negati ve Not Available [facility] (Lab) [address] [facility], [place], [address], 07/20/2021 23:05:13 07/20/19 22 07/19/2021 URINA LYSIS , WITH MICRO SCOPI C urobilinogen , urine <2.0 mg/dL <2.0 Not Available [facility] (Lab) [address] [place], [address], 07/20/2021 23:05:13 07/20/19 22 07/19/2021 URINA LYSIS , WITH MICRO SCOPI C nitrite, urine Negati ve negati ve Not Available [facility] (Lab) [address] [place], [address], 07/20/2021 23:05:13 07/20/19 22 07/19/2021 URINA LYSIS , WITH MICRO SCOPI C leukocyte esterase, urine Negati ve clive/u L negati ve Not Available [facility] (Lab) [address] [facility], [place], [address], 07/20/2021 23:05:13 07/20/19 22 07/19/2021 URINA LYSIS , WITH MICRO SCOPI C WBC, urine 0-5 /hpf none, 0-5 Not Available [facility] (Lab) [address], [place], [address], 07/20/2021 23:05:13 07/20/19 22 07/19/2021 URINA LYSIS , WITH MICRO SCOPI C RBC, urine 0-2 /hpf none, 0-2 Not Available [facility] (Lab) [address] [facility], [place], [address], 07/20/2021 23:05:13 07/20/19 22 07/19/2021 URINA LYSIS , WITH MICRO SCOPI C bacteria, urine None /hpf none Not Available [facility] (Lab) [address] [facility], [place], [address], 07/20/2021 23:05:13 07/20/19 22 07/19/2021 URINA LYSIS , WITH MICRO SCOPI C squamous epithelial cells, urine Few /hpf none abnormal Not Available [facility] (Lab) [address], [place], [address], 07/20/2021 23:05:13 07/20/19 22 07/19/2021 URINA LYSIS , WITH MICRO SCOPI C mucus, urine Few /hpf none, trace, few Not Available [facility] (Lab) [address] [facility] [address], [place], [address], 07/20/2021 23:05:13 07/20/19 22 07/19/2021 CULTU RE: URINE result report SEE RESULT S BELOW Test: Cultu re: Urine Speci men Sourc e: Urine - Clean Catch Speci men Type: Urine Speci men Date: 1:28 PM Resul t Date: 10:00 PM Resul t Statu s: Final resul t Abnor mal: No Resul ting Lab: [facility] [address] [facility] [address] Tel: CULTU RE ----- ----- ----- --- No growt h in 1 day (dete ction level of 10,00 0 colon ies / ml.) Not Available [facility] (Lab) [address], [place], [address], 07/20/2021 23:05:14 07/20/19 22 07/19/2021 urina lysis , dipst ick Leukocytes neg Not Available [facility] [address], [place], [address], 07/19/2021 11:40:03 07/20/19 22 07/19/2021 urina lysis , dipst ick Nitrite neg Not Available [place] [address], [place], [address], 07/19/2021 11:40:03 07/20/19 22 07/19/2021 urina lysis , dipst ick Blood trace Not Available [place] [address], [place], [address], 07/19/2021 11:40:03 06/14/19 23 06/13/2022 URINA LYSIS , WITH MICRO SCOPI C color, urine Light Yellow Highl y color ed speci mens may inter fere with chemi stry resul ts. Not Available [facility] (Lab) [address], [place], [address], 06/14/2022 02:21:21 06/14/19 23 06/13/2022 URINA LYSIS , WITH MICRO SCOPI C clarity, urine Clear Not Available [facility] (Lab) [address] [facility], [place], [address], 06/14/2022 02:21:21 06/14/19 23 06/13/2022 URINA LYSIS , WITH MICRO SCOPI C glucose, urine Normal mg/dL negati ve Not Available [facility] (Lab) [address] [facility], [place], [address], 06/14/2022 02:21:21 06/14/19 23 06/13/2022 URINA LYSIS , WITH MICRO SCOPI C bilirubin, urine Negati ve negati ve Not Available [facility] (Lab) [address] [facility], [place], [address], 06/14/2022 02:21:21 06/14/19 23 06/13/2022 URINA LYSIS , WITH MICRO SCOPI C ketones, urine Negati ve mg/dL negati ve Not Available [facility] (Lab) [address] [facility], [place], [address], 06/14/2022 02:21:21 06/14/19 23 06/13/2022 URINA LYSIS , WITH MICRO SCOPI C specific gravity, urine 1.022 . 1.005- 1.035 Not Available [facility] (Lab) [address] [facility], [place], [address], 06/14/2022 02:21:21 06/14/19 23 06/13/2022 URINA LYSIS , WITH MICRO SCOPI C blood, urine Negati ve negati ve Not Available [facility] (Lab) [address] [facility], [place], [address], 06/14/2022 02:21:21 06/14/19 23 06/13/2022 URINA LYSIS , WITH MICRO SCOPI C pH, urine 5.5 . 5.0-7. 0 Not Available [facility] (Lab) [address] [facility], [place], [address], 06/14/2022 02:21:21 06/14/19 23 06/13/2022 URINA LYSIS , WITH MICRO SCOPI C protein, UA Negati ve mg/dL negati ve, 10-20 Not Available [facility] (Lab) [address] [facility], [place], [address], 06/14/2022 02:21:21 06/14/19 23 06/13/2022 URINA LYSIS , WITH MICRO SCOPI C nitrite, urine Negati ve negati ve Not Available [facility] (Lab) [address] [facility], [place], [address], 06/14/2022 02:21:21 06/14/19 23 06/13/2022 URINA LYSIS , WITH MICRO SCOPI C leukocyte esterase, urine Negati ve clive/u L negati ve Not Available [facility] (Lab) [address] [facility], [place], [address], 06/14/2022 02:21:21 06/14/19 23 06/13/2022 URINA LYSIS , WITH MICRO SCOPI C urobilinogen , urine Normal mg/dL normal , <2.0 Not Available [facility] (Lab) [address], [place], [address], 06/14/2022 02:21:21 06/14/19 23 06/13/2022 URINA LYSIS , WITH MICRO SCOPI C RBC, urine None /hpf none, 0-2 Not Available [facility] (Lab) [address] [facility], [place], [address], 06/14/2022 02:21:21 06/14/19 23 06/13/2022 URINA LYSIS , WITH MICRO SCOPI C WBC, urine 0-5 /hpf none, 0-5 Not Available [facility] (Lab) [address] [place], [address], 06/14/2022 02:21:21 06/14/19 23 06/13/2022 URINA LYSIS , WITH MICRO SCOPI C squamous epithelial cells, urine Modera te /hpf none abnormal Not Available [facility] (Lab) [address] [facility] [place], [address], 06/14/2022 02:21:21 06/14/19 23 06/13/2022 URINA LYSIS , WITH MICRO SCOPI C bacteria, urine None /hpf none Not Available [facility] (Lab) [address] [facility], [place], [address], 06/14/2022 02:21:21 06/14/19 23 06/13/2022 URINA LYSIS , WITH MICRO SCOPI C hyaline cast, urine None /lpf none, 0-2 Not Available [facility] (Lab) [address] [facility], [place], [address], 06/14/2022 02:21:21 06/14/19 23 06/13/2022 URINA LYSIS , WITH MICRO SCOPI C mucus, urine Many /hpf none, trace, few abnormal Not Available [facility] (Lab) [address] [facility] [address], [place], [address], 06/14/2022 02:21:21 Result Notes None recorded. Problems Name Problem SNOMED Code Status Onset Date Resolution Date Notes Provider Name and Address Organization Details Recorded Time Breast lump 86100233 Completed 201202/13/2021 Lump or mass in breast;R ecorded Elsewher e: No Locat ion: [facility] S ource: EHR Pleat Patternmaker rachelle: N Isidra ce ID: [id number] Ap lable Time: 11:00:00 AM Cassy Membreno MD [address], [place], [address], [facility] 1 11:44:26 Speciali zed medical examinat ion Completed 201102/13/2021 Gynecolo gical Examinat ion;Russel rded Elsewher e: No Locat ion: [facility] S ource: EHR Pleat Patternmaker rachelle: N Isidra ce ID: [id number] Ap lable Time: 01:00:00 PM Cassy Membreno MD [address], [place], [address], [facility] 1 11:44:41 Screenin g for malignan t neoplasm of rectum Completed 201102/13/2021 Screenin g for malignan t neoplasm s of the rectum;R ecorded Elsewher e: No Locat ion: Yunior abdalla [facility] S ource: EHR Pleat Patternmaker rachelle: N Valeriyti ce ID: [id number] Ap lable Time: 01:00:[address] MD [address], [place], [address], [facility] 11:44:37 Screenin g for malignan t neoplasm of cervix Completed 201102/13/2021 Screenin g for malignan t neoplasm s of the cervix;R ecorded Elsewher e: No [facility]at ion: [facility] S ource: EHR Pleat Patternmaker rachelle: N Isidra ce ID: [id number] Ap lable Time: 01:00:[address] PM MD [address], [place], [address], [facility] 11:44:[address] Concept Completed 201702/13/2021 Well woman check w/o abnormal finding; Recorded Elsewher e: No Locat ion: [facility] S ource: EHR Pleat Patternmaker rachelle: N Valeriyti ce ID: [id number] Ap lable Time: 01:00:[address] PM MD [address], [place], [address], [facility] 11:44:39 Incomple te uterovag inal prolapse 459373195 Completed 201702/13/2021 2nd degree uterine prolapse ;Recorde d Elsewher e: No Locat ion: [facility] S ource: EHR Pleat Patternmaker rachelle: N Valeriyti ce ID: [id number] Ap lable Time: 01:00:[address] PM MD [address], [place], [address], [facility] 11:44:34 Adult health examinat ion Completed 201102/13/2021 Routine Medical Exam;Rec orded Elsewher e: No Locat ion: Tamimekaren abdalla [facility] S ource: EHR Pleat Patternmaker rachelle: N Practi ce ID: [id number] Ap lable Time: 01:00:00 PM Cassy Membreno MD [address], [place], [address], [facility] 11:44:24 Uterovag inal prolapse 89794644 Active 2020 Cassy Membreno MD [address], [place], [address], [facility] 14:07:21 Midline cystocel e 391236808 Active 2020 Cassy Membreno MD [address], [place], [address], [facility] 14:07:29 Uterine prolapse 71181473 Completed 202002/19/2021 Cassy Membreno MD [address], [place], [address], [facility] 09:07:23 Body mass index 30+ - obesity 678441351 Active 2020 Cassy Membreno MD [address], [place], [address], [facility] 09:07:32 Vaginal pessary in situ 0478735497 104 Active 2021 Cassy Membreno MD [address], [place], [address], [facility] 2 12:45:16 Problem Notes None recorded. Procedures Surgical History Date Name Laterality Status Provider Name and Address Organization Details Recorded Time 023 Most Recent Bone Density completed [facility] 12/09/2022 10:38:18 023 Date of Last Mammogram completed [facility] 12/09/2022 10:38:04 021 Pessary Insertion completed Cassy Membreno MD [address], [place], [address], [facility] 02/19/2021 11:50:22 018 Date of Last Pap Smear completed [facility] 02/13/2021 11:42:41 983 cholecystectomy completed [facility] 02/13/2021 11:46:59 979 Tubal Ligation completed [facility] 02/13/2021 11:46:43 Cryotherapy/Cryoca utery completed [facility] 02/13/2021 09:22:14 colonoscopy completed [facility] 02/13/2021 09:22:21 Imaging Results None recorded. Procedure Notes None recorded. Medical Equipment None Reported. Allergies Allergen ID Allergen Name Allergen Category Reaction Reaction Severity Criticality Documentation Date Start Date Code Code System Note Provider Name and Address Organization Details Recorded Time 67035 codeine medicatio n Not available Not available Not available 03/02/2020 9310 RxNorm Comme nt: Locat ion: [place] [...] Not Available Not Available Not Avai lablara [place] Headache Powder 650 mg oral packet 02/13 completed Prescrib ed Elsewher e: Yes Loca tion: Yunior abdalla [facility] odify By: mer sorenson DateTime : 06/05/19 12 01:00:00 PM Not Available Not Available Not Available Fiber (psyllium husk) 0.52 gram capsule 06/04 completed Prescrib ed Elsewher e: Yes Loca tion: Yunior abdalla [facility] odify By: mer sorenson DateTime : 06/04/19 12 07:12:07 PM Not Available Not Available Not Available Calcio Alisha 500 mg tablet 02/13 completed Prescrib ed Elsewher e: Yes Loca tion: Yunior [facility] odify By: madyson stapleton DateTime : 06/04/19 12 07:12:07 PM Not Available Not Available Not Available Vitamin D3 125 mcg (5,000 unit) tablet 09/27 completed Prescrib ed Elsewher e: Yes Loca tion: Yunior abdalla [facility] odify By: abby sorenson DateTime : 06/05/19 12 01:00:00 PM Not Available Not Available Not Available ID NOW COVID-19 Test Kit TEST DIRECTED TODAY 02/13 completed Not Available Not Available Not Available Vitals Date Recorded Body height Body mass index (BMI) Body weight Systolic blood pressure Diastolic blood pressure Provider Name and Address Organization Details Last Updated DateTime 05/01/2021 160.02 cm 33.3 kg/m2 00286.37 g 127 mm[Hg] 85 mm[Hg] [facility] 2 11:52:20 Date Recorded Body height Body mass index (BMI) Body weight Systolic blood pressure Diastolic blood pressure Provider Name and Address Organization Details Last Updated DateTime 06/13/2022 160.02 cm 36 kg/m2 90719.25 g 134 mm[Hg] 78 mm[Hg] [facility] 3 15:36:05 Date Recorded Body height Body mass index (BMI) Body weight Systolic blood pressure Diastolic blood pressure Provider Name and Address Organization Details Last Updated DateTime 06/26/2021 160.02 cm 34.5 kg/m2 66536.51 g 120 mm[Hg] 72 mm[Hg] [facility] 2 14:00:01 Date Recorded Body height Body mass index (BMI) Body weight Systolic blood pressure Diastolic blood pressure Provider Name and Address Organization Details Last Updated DateTime 07/19/2021 160.02 cm 34.9 kg/m2 93157.7 g 131 mm[Hg] 79 mm[Hg] [facility] 2 11:33:52 Date Recorded Body height Body mass index (BMI) Body weight Systolic blood pressure Diastolic blood pressure Provider Name and Address Organization Details Last Updated DateTime 12/09/2022 160.02 cm 35.6 kg/m2 21156.07 g 121 mm[Hg] 76 mm[Hg] [facility] 3 10:37:51 Social History Question Answer Notes LastModified by Organizat ion Details LastModified Time Tobacco Smoking Status Never Smoker Benny Demetrio [facility] 02/19/2021 09:28:53 Has Tobacco Cessation Counseling Been Provided? No [email or web address] Information not available 02/19/2021 Sex: Unknown Functional Status Question Answer Note LastModified by Organizat ion Details LastModified Time Do you use any illicit or recreational drugs? No Information not available 02/13/2021 Do you or have you ever used any other forms of tobacco or nicotine? No [email or web address] Information not available 02/19/2021 What is your level of alcohol consumption? Occasional Information not available 02/13/2021 Mental Status None recorded. Family History Nothing Reported Notes:Father: Cancer, lung M other: Coronary artery disease Medical History Condition Response Other N Blood Transfusion N Dermatologic Disorders N Gestational Diabetes N Anxiety Disorder N Autoimmune disease N Arthritis N Polyps N Infertility N Acid Reflux (GERD) N Cancer N Varicosities N Stroke N Neurologic/Epilepsy N Fibromyalgia N Headaches N Kidney Disease N Heart Problems N Kidney or Bladder Problems N Eating Disorder N Art (IVF or FET) N Hepatitis/Liver Disease N No Past Medical History N Urinary Tract Infection N Asthma N Trauma/Violence N Thrombophilias N Allergies (Food, seasonal, environmental ) N Breast Cancer N Drug/Latex Allergies/Reactions N Lung Disease N Defects or Inherited Disease N Breast Problem N Hematologic disorders N Anesthesia Complications N History of STI N Deep Vein Thrombosis N Polycystic ovary syndrome N History of abnormal pap N Endometriosis N High Cholesterol N Thyroid Problems N GI Problems N Anemia N Psychiatric Illness N Ovarian Cancer N Diabetes N Pulmonary (TB, Asthma) N Eczema N Abuse/Domestic Violence N Depression/ depression N Heart Disease N Pre-Eclampsia N Hypertension N Osteoporosis N Gynecological History Statement/Question Response Date of [...] SNOMED-CT Code Diagnosis ICD10 Code Diagnosis Note [id number] Cassy Membreno MD [place] [address] [address] 02/13/2021 11:32:19 02/15/2021 09:10:32 Midline cystocele 937587886 N81.11 Increased frequency of urination 960256042 R35.0 Uterovaginal prolapse 18 947949 N81.4 [id number] MD Jassi [place] [address] [address] 02/19/2021 09:25:26 02/19/2021 12:08:28 Midline cystocele 747910519 N81.11 Uterovaginal prolapse 18 575546 N81.4 Fitting of pessary 94139 002 Z46.89 [id number] Cassy Membreno MD [place] [address] [address] 04/05/2021 11:24:46 04/05/2021 14:41:25 Vaginal pessary in situ 2340942841 104 Z96.0 [id number] Cassy Membreno MD [place] [address] [address] 05/01/2021 11:35:53 05/03/2021 11:44:25 Vaginal pessary in situ 3744928668 104 Z96.0 Midline cystocele 188057 003 N81.11 Uterovaginal prolapse 18 596204 N81.4 [id number] MD Tammie [place] [address] [address] 06/26/2021 13:49:51 06/26/2021 14:53:38 Midline cystocele 777165760 N81.11 Vaginal pe ssary in situ 1837451927 104 Z96.0 [id number] MD Jassi Ford [address] [address] 07/19/2021 11:24:23 07/19/2021 14:09:05 Low back pain 120517629 M54.50 Microscopic hematuria 19 5853570 R31.29 [id number] MD Jassi Ford [address] [address] 06/13/2022 15:08:12 06/13/2022 16:59:46 History of hematuria 020237517 Z87.448 Vaginal pe ssary in situ 7636641374 104 Z96.0 Atrophic vaginitis 82921 000 N95.2 [id number] Cassy Membreno MD [place] [address] [address] 12/09/2022 10:21:40 12/10/2022 10:20:52 Gynecologic examination 81614700 Z01.419 Midline cystocele 850444 003 N81.11 Uterovaginal prolapse 18 059239 N81.4 Vaginal pe ssary in situ 7805148742 104 Z96.0 Health Concerns Section Related Observation LastModified by Organization Detai ls LastModified Time None Recorded Concern Status LastModified by Organization Details LastModified Time None Recorded Advance Directives Directive None Recorded Payers Insurance Date Sequence Insurance Name Policy Number Policy Cheema Covered Member ID Cheema Member ID Guarantor Name 12/08/2022 2 [facility] [id number] Valerie Crowleyos [id number] Valerie K Jaros 12/08/2022 1 [place] Valerie Herron Jaros [id number] Valerie Gopal Jaros Notes Date Note Type Note Provider [...] discomfort. Cassy Membreno MD [address], [place], [address], [facility] 05/08/2021 12:46:14 06/26/2021 text/html here for replacement of new pessary. 6 ring was uncomfortable, 5 ring here for insertion. stopped estrace cream, ran out. would like cheaper option. Cassy Membreno MD [address], [place], [address], [facility] 06/26/2021 14:34:16 07/19/2021 text/html 70yo [...] weeks. Cassy Membreno MD [address], [place], [address], [facility] 07/19/2021 13:55:52 06/13/2022 text/html Here [...] leaking. Cassy Membreno MD [address], [place], [address], [facility] 06/13/2022 16:59:18 12/09/2022 text/html Patient [...] concerns-n Cassy Membreno MD [address], [place], [address], [facility] 12/10/2022 09:44:12 OBGyn Episode Ob Episode Information Episode Created Date Number of Fetuses Patient Bloodtype Patient rh Status Prepregnancy Weight lbs Domestic Partner Domestic Partner Phone Father Name Lens Mold Setter Status 02/14/20 21 1 CLOSED Fetus Data First Name Last Name Admitted to NICU Weight (g) Sex Living Outcome Pediatric Complications Fetus ID Race Codes Race Delivery Type M [id number] Vaginal Delivery Juice Calculation Initial Juice Date [...] Domestic Partner Domestic Partner Phone Father Name Lens Mold Setter Status 02/14/20 21 1 CLOSED Fetus Data First Name Last Name Admitted to NICU Weight (g) Sex Living Outcome Pediatric Complications Fetus ID Race Codes Race Delivery Type M [id number] Vaginal Delivery Juice Calculation Initial Juice Date [...]
--- OUTSIDE RECORDS SUMMARY | 2024-09-13 14:55 | XMS_ITS | Data Portability ---
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 Plan of Treatment Reminders Order Date Submit Date Provider Last Modified By Organization Details Last Modified Time Details Appointments None recorded. Lab CBC w/ auto diff 2024 025 [email or web address] [facility], [address], [place], [address], 5 09:43:40 CMP, serum or plasma 2024 025 [email or web address] [facility], [address], [place], [address], 5 09:43:40 lipid panel, serum 2024 025 [id number] [facility], [address], [place], [address], 5 09:43:40 T4, free, serum 2024 025 [email or web address] [facility], [address], [place], [address], 5 09:43:41 TSH, serum or plasma 2024 025 [id number] [facility], [address], [place], [address], 5 09:43:41 unlisted lab - cystatin C with eGFR 2024 025 [email or web address] [facility], [address] [place], [address], 5 09:43:41 CBC w/ auto diff 2023 024 [facility], [address] [place], [address], 4 11:05:53 CMP, serum or plasma 2023 024 [facility], [address] [place], [address], 4 11:05:52 lipid panel, serum 2023 024 [facility], [address] [place], [address], 4 11:05:50 TSH, serum or plasma 2023 024 [facility], [address] [place], [address], 4 11:05:56 T4, free, serum 2023 024 [facility], [address] [place], [address], 4 11:05:54 lipid panel, serum 2023 024 [facility], [address] [place], [address], 4 09:42:42 CMP, serum or plasma 2023 024 [id number] [facility], [address] [place], [address], 4 09:42:42 T4, free, serum 2023 024 [id number] [facility], [address] [place], [address], 4 09:42:42 TSH, serum or plasma 2023 024 [email or web address] [facility], [address] [place], [address], 4 09:42:42 CBC w/ auto diff 2023 024 [id number] [facility], [address] [place], [address], 4 09:42:42 vitamin D, 25-hydroxy , total, serum 2022 023 [facility], [address] [place], [address], 3 04:53:05 CBC w/ auto diff 2022 023 [facility], [address] [place], [address], 3 04:53:02 CMP, serum or plasma 2022 023 [facility], [address] [place], [address], 3 04:53:01 lipid panel, serum 2022 023 [facility], [address] [place], [address], 3 04:52:59 TSH, serum or plasma 2022 023 [facility], [address] [place], [address], 3 04:53:04 T4, free, serum 2022 023 [facility], [address] [place], [address], 3 04:53:03 iron + total iron-stephen ng capacity (TIBC), serum 2022 023 [facility], [address] [place], [address], 3 10:02:24 CBC w/ auto diff 2022 023 [facility], [address] [place], [address], 3 10:02:25 vitamin B12, serum 2022 023 [facility], [address] [place], [address], 3 10:02:26 Referral None recorded. Procedures None recorded. Surgeries None recorded. Imaging None recorded. Medication Orders None recorded. Patient TargetsNo targets recorded. Patient Instructions Encounter Date Encounter Id Patient Instructions Last Modified By Organization Details Last Modified Time 07/22/2022 [id number] Hypertension -cl ass two obesity- PICA for crushed ice. Continue on current medications. Will check blood work consisting of CBC, serum iron level iron binding capacity and ferritin level. Check a CMP. Also needs a mammogram. Follow-up in six months. Mammogram [email or web address] Not available 07/22/2022 11:05:33 01/27/2023 [id number] dementia rating scale-2* Not available 01/27/2023 11:20:55 alcohol misuse* [email or web address] Not available 01/27/2023 11:20:55 depression screening* [email or web address] Not available 01/27/2023 11:20:55 Timed Up and Go test (TUG)* [email or web address] Not available 01/27/2023 11:20:55 multi-dimensiona l health assessment questionnaire* [email or web address] Not available 01/27/2023 11:20:55 Personalized a lt [...] activity: Need more exercise/physical activity Nutrition: Average Eat heart healthy diet Fall Risk (screened [...] or ) Breast Cancer Screening with mammogram: up to date Cervical/Uterine/Ov nas Cancer Screening: No screening necessary Osteoporosis Screening: up to date Date Screening Last Performed: Colon Cancer Screening: Colonoscopy Recommended Date Screening Last Performed: __2017____ Eye Disease Screening: Your next exam in: goes yearly Dementia Risk: Low I have no recommendations Depression Screening: Negative I have no recommendations [email or web address] Not available 01/27/2023 11:04:44 Adult health examination [...] with voice recognition software. Occasional wrong-word or qppqs-y-spps substitutions may have occurred due to the inherent limitations of voice recognition software. Read the chart carefully and recognize, using context, where substitutions have occurred. Follow-up colonoscopy for polyps. Cardiology consult for atypical exertional shortness of breath and chest discomfort Next Appt: 6 Months Approximate Date: 07/26/2023 [email or web address] Not available 01/27/2023 11:20:12 07/28/2023 [id number] Follow-up hypertension, hyperlipidemia and obesity class two all clinically stable. Will check a CBC, CMP, thyroid and lipid panel. Continue on current Rx follow-up in six months. Next Appointment: 6 Months Approximate Date: 01/24/2024 Portions of the record may have been created with voice recognition software. Occasional wrong-word or lhyol-e-zgzf substitutions may have occurred due to the inherent limitations of voice recognition software. Read the chart carefully and recognize, using context, where substitutions have occurred. Not available 07/28/2023 10:44:23 02/02/2024 [id number] dementia rating scale-2* [email or web address] Not available 02/02/2024 11:11:05 alcohol misuse* [email or web address] Not available 02/02/2024 11:11:04 depression screening* Not available 02/02/2024 11:11:04 multi-dimensiona l health assessment questionnaire* [email or web address] Not available 02/02/2024 11:11:05 Personalized [facility] lt Plan and Screening Recommendations Advance Directives [...] activity: Need more exercise/physical activity Nutrition: Average Eat heart healthy diet Fall Risk (screened [...] Screening Last Performed: Colon Cancer Screening: Colonoscopy due 2028 Date Screening Last Performed: _2023____ Eye Disease Screening: Your next exam in: goes every 2 yrs Dementia Risk: Low I have no recommendations Depression Screening: Negative I have no recommendations [email or web address] Not available 02/02/2024 11:04:08 Medicare wellnes s [...] with voice recognition software. Occasional wrong-word or yyoex-o-stln substitutions may have occurred due to the inherent limitations of voice recognition software. Read the chart carefully and recognize, using context, where substitutions have occurred. [email or web address] Not available 02/02/2024 11:10:43 08/02/2024 [id number] Follow-up scales ry artery disease, hypertension, hyperlipidemia [...] with voice recognition software. Occasional wrong-word or dowmp-f-fvoc substitutions may have occurred due to the inherent limitations of voice recognition software. Read the chart carefully and recognize, using context, where substitutions may have occurred. Created: Adrian Mohr M.D. 08.02.2024 09:53 AM [email or web address] Not available 08/02/2024 10:53:17 Reason for Referral None Reported. Results Created Date Observation Date Name Description Value Unit Range Abnormal Flag Note LastModifiedBy Organization Detail LastModifiedTime 07/26/1907/26/2022 IRON AND TOTAL IRON STEPHEN NG CAPAC ITY iron, total 47 mcg/d L 45-160 normal Not Available [address], [address], 07/26/2022 10:02:24 07/26/19 23 07/26/2022 IRON AND TOTAL IRON STEPHEN NG CAPAC ITY iron binding capacity 365 mcg/d L_(ca lc) 250-45 0 normal Not Available [address], [address], 07/26/2022 10:02:24 07/26/1907/26/2022 IRON AND TOTAL IRON STEPHEN NG CAPAC ITY % saturation 13 %_(ca lc) 16-45 low Not Available [address], [address], 07/26/2022 10:02:24 07/26/1907/26/2022 CBC (INCL UDES DIFF/ PLT) white blood cell count 5.4 thous and/u L 3.8-10 .8 normal Not Available [address], [address], 07/26/2022 10:02:25 07/26/1907/26/2022 CBC (INCL UDES DIFF/ PLT) red blood cell count 4.15 brendan on/uL 3.80-5 .10 normal Not Available [address], [address], 07/26/2022 10:02:25 07/26/1907/26/2022 CBC (INCL UDES DIFF/ PLT) hemoglobin 11.6 g/dL 11.7-1 5.5 low Not Available [address], [address], 07/26/2022 10:02:25 07/26/19 23 07/26/2022 CBC (INCL UDES DIFF/ PLT) hematocrit 37.1 % 35.0-4 5.0 normal Not Available [facility] [address], [address], 07/26/2022 10:02:25 07/26/19 23 07/26/2022 CBC (INCL UDES DIFF/ PLT) MCV 89.4 fL 80.0-1 00.0 normal Not Available [address], [address], 07/26/2022 10:02:25 07/26/1907/26/2022 CBC (INCL UDES DIFF/ PLT) MCH 28.0 pg 27.0-3 3.0 normal Not Available [address], [address], 07/26/2022 10:02:25 07/26/19 23 07/26/2022 CBC (INCL UDES DIFF/ PLT) MCHC 31.3 g/dL 32.0-3 6.0 low Not Available [address], [address], 07/26/2022 10:02:25 07/26/1907/26/2022 CBC (INCL UDES DIFF/ PLT) RDW 13.8 % 11.0-1 5.0 normal Not Available [address], [address], 07/26/2022 10:02:25 07/26/19 23 07/26/2022 CBC (INCL UDES DIFF/ PLT) platelet count 259 thous and/u L 140-40 0 normal Not Available [facility] [address], [address], 07/26/2022 10:02:25 07/26/1907/26/2022 CBC (INCL UDES DIFF/ PLT) MPV 8.9 fL 7.5-12 .5 normal Not Available [facility] [address], [address], 07/26/2022 10:02:25 07/26/19 23 07/26/2022 CBC (INCL UDES DIFF/ PLT) absolute neutrophils 2619 cells /uL 1500-7 800 normal Not Available [address], [address], 07/26/2022 10:02:25 07/26/19 23 07/26/2022 CBC (INCL UDES DIFF/ PLT) absolute lymphocytes 1863 cells /uL 850-39 00 normal Not Available [address], [address], 07/26/2022 10:02:25 07/26/1907/26/2022 CBC (INCL UDES DIFF/ PLT) absolute monocytes 410 cells /uL 200-95 0 normal Not Available [address], [address], 07/26/2022 10:02:25 07/26/19 23 07/26/2022 CBC (INCL UDES DIFF/ PLT) absolute eosinophils 416 cells /uL 15-500 normal Not Available [address], [address], 07/26/2022 10:02:25 07/26/19 23 07/26/2022 CBC (INCL UDES DIFF/ PLT) absolute basophils 92 cells /uL 0-200 normal Not Available [address], [address], 07/26/2022 10:02:25 07/26/19 23 07/26/2022 CBC (INCL UDES DIFF/ PLT) neutrophils 48.5 % normal Not Available [address], [address], 07/26/2022 10:02:25 07/26/19 23 07/26/2022 CBC (INCL UDES DIFF/ PLT) lymphocytes 34.5 % normal Not Available [address], [address], 07/26/2022 10:02:25 07/26/19 23 07/26/2022 CBC (INCL UDES DIFF/ PLT) monocytes 7.6 % normal Not Available [address], [address], 07/26/2022 10:02:25 07/26/19 23 07/26/2022 CBC (INCL UDES DIFF/ PLT) eosinophils 7.7 % normal Not Available [facility] [address], [address], 07/26/2022 10:02:25 07/26/19 23 07/26/2022 CBC (INCL UDES DIFF/ PLT) basophils 1.7 % normal Not Available [facility] [address], [address], 07/26/2022 10:02:25 07/26/19 23 07/26/2022 VITAM IN B12 vitamin B12 365 pg/mL [...] pg/mL will have sympt oms. Not Available [address], [address], 07/26/2022 10:02:26 02/03/20 23 02/03/2023 LIPID PANEL , STAND ZORA cholesterol, total 205 mg/dL <200 high Not Available [address], [address], 02/03/2023 04:52:59 02/03/20 23 02/03/2023 LIPID PANEL , STAND ZORA HDL cholesterol 52 mg/dL > or = 50 normal Not Available [facility] [address] [place], [address], 02/03/2023 04:52:59 02/03/20 23 02/03/2023 LIPID PANEL , STAND ZORA triglyceride s 220 mg/dL <150 high If a non-f astin g speci men was colle cted, consi emilio repea t trigl yceri de testi ng on a fasti ng speci men if clini delta indic ated. Naresh khan et al. J. of Clin. Lipid ol. 2015; 9:129 -169. Not Available [facility] [address] [place], [address], 02/03/2023 04:52:59 02/03/20 23 02/03/2023 LIPID PANEL , STAND ZORA LDL-choleste rol [...] 2061- 2068 (http ://ed ucati on.Qu [employer]. com/f aq/FA Q164) Not Available [facility] [address] [place], [address], 02/03/2023 04:52:59 02/03/20 23 02/03/2023 LIPID PANEL , STAND ZORA chol/HDLC ratio 3.9 (calc ) <5.0 normal Not Available [facility] [address] [place], [address], 02/03/2023 04:52:59 02/03/20 23 02/03/2023 LIPID PANEL , STAND ZORA non HDL cholesterol 153 mg/dL _(christopher c) <130 high For patie nts with diabe colby plus 1 major ASCVD risk facto r, treat ing to a non-H DL-C goal of <100 mg/dL (LDL- C of <70 mg/dL ) is brigette herrera optio n. Not Available [address], [address], 02/03/2023 04:52:59 02/03/20 23 02/03/2023 COMPR EHENS THIEN METAB OLIC PANEL glucose 95 mg/dL 65-99 normal Fasti ng refer ence inter olayinka Not Available [address], [address], 02/03/2023 04:53:01 02/03/20 23 02/03/2023 COMPR EHENS THIEN METAB OLIC PANEL urea nitrogen (BUN) 15 mg/dL 7-25 normal Not Available [address], [address], 02/03/2023 04:53:01 02/03/20 23 02/03/2023 COMPR EHENS THIEN METAB OLIC PANEL creatinine 1.08 mg/dL 0.60-1 .00 high Not Available [address], [address], 02/03/2023 04:53:01 02/03/20 23 02/03/2023 COMPR EHENS THIEN METAB OLIC PANEL eGFR 54 mL/mi n/1.7 3m2 > or = 60 low Not Available [address], [address], 02/03/2023 04:53:01 02/03/20 23 02/03/2023 COMPR EHENS THIEN METAB OLIC PANEL BUN/creatini ne ratio 14 (calc ) 6-22 normal Not Available [address] [place], [address], 02/03/2023 04:53:01 02/03/20 23 02/03/2023 COMPR EHENS THIEN METAB OLIC PANEL sodium 140 mmol/ L 135-14 6 normal Not Available [address], [address], 02/03/2023 04:53:01 02/03/20 23 02/03/2023 COMPR EHENS THIEN METAB OLIC PANEL potassium 4.2 mmol/ L 3.5-5. 3 normal Not Available [address], [address], 02/03/2023 04:53:01 02/03/20 23 02/03/2023 COMPR EHENS THIEN METAB OLIC PANEL chloride 105 mmol/ L 98-110 normal Not Available [address], [address], 02/03/2023 04:53:01 02/03/20 23 02/03/2023 COMPR EHENS THIEN METAB OLIC PANEL carbon dioxide 27 mmol/ L 20-32 normal Not Available [address], [address], 02/03/2023 04:53:01 02/03/20 23 02/03/2023 COMPR EHENS THIEN METAB OLIC PANEL calcium 8.6 mg/dL 8.6-10 .4 normal Not Available [address], [address], 02/03/2023 04:53:01 02/03/20 23 02/03/2023 COMPR EHENS THIEN METAB OLIC PANEL protein, total 6.6 g/dL 6.1-8. 1 normal Not Available [address], [address], 02/03/2023 04:53:01 02/03/20 23 02/03/2023 COMPR EHENS TIHEN METAB OLIC PANEL albumin 3.9 g/dL 3.6-5. 1 normal Not Available [address], [address], 02/03/2023 04:53:01 02/03/20 23 02/03/2023 COMPR EHENS THIEN METAB OLIC PANEL globulin 2.7 g/dL_ (calc ) 1.9-3. 7 normal Not Available [address], [address], 02/03/2023 04:53:01 02/03/20 23 02/03/2023 COMPR EHENS THIEN METAB OLIC PANEL albumin/glob ulin ratio 1.4 (calc ) 1.0-2. 5 normal Not Available [address], [address], 02/03/2023 04:53:01 02/03/20 23 02/03/2023 COMPR EHENS THIEN METAB OLIC PANEL bilirubin, total 0.4 mg/dL 0.2-1. 2 normal Not Available [address], [address], 02/03/2023 04:53:01 02/03/20 23 02/03/2023 COMPR EHENS THIEN METAB OLIC PANEL alkaline phosphatase 74 U/L 37-153 normal Not Available [address] [address] [place], [address], 02/03/2023 04:53:01 02/03/20 23 02/03/2023 COMPR EHENS THIEN METAB OLIC PANEL AST 12 U/L 10-35 normal Not Available [address], [address], 02/03/2023 04:53:01 02/03/20 23 02/03/2023 COMPR EHENS THIEN METAB OLIC PANEL ALT 7 U/L 6-29 normal Not Available [address], [address], 02/03/2023 04:53:01 02/03/20 23 02/03/2023 CBC (INCL UDES DIFF/ PLT) white blood cell count 5.8 thous and/u L 3.8-10 .8 normal Not Available [address], [address], 02/03/2023 04:53:02 02/03/20 23 02/03/2023 CBC (INCL UDES DIFF/ PLT) red blood cell count 4.15 brendan on/uL 3.80-5 .10 normal Not Available [address], [address], 02/03/2023 04:53:02 02/03/20 23 02/03/2023 CBC (INCL UDES DIFF/ PLT) hemoglobin 11.1 g/dL 11.7-1 5.5 low Not Available [address], [address], 02/03/2023 04:53:02 02/03/20 23 02/03/2023 CBC (INCL UDES DIFF/ PLT) hematocrit 35.4 % 35.0-4 5.0 normal Not Available [address], [address], 02/03/2023 04:53:02 02/03/20 23 02/03/2023 CBC (INCL UDES DIFF/ PLT) MCV 85.3 fL 80.0-1 00.0 normal Not Available [address], [address], 02/03/2023 04:53:02 02/03/20 23 02/03/2023 CBC (INCL UDES DIFF/ PLT) MCH 26.7 pg 27.0-3 3.0 low Not Available [address], [address], 02/03/2023 04:53:02 02/03/20 23 02/03/2023 CBC (INCL UDES DIFF/ PLT) MCHC 31.4 g/dL 32.0-3 6.0 low Not Available [address], [address], 02/03/2023 04:53:02 02/03/20 23 02/03/2023 CBC (INCL UDES DIFF/ PLT) RDW 14.5 % 11.0-1 5.0 normal Not Available [address], [address], 02/03/2023 04:53:02 02/03/20 23 02/03/2023 CBC (INCL UDES DIFF/ PLT) platelet count 261 thous and/u L 140-40 0 normal Not Available [address], [address], 02/03/2023 04:53:02 02/03/20 23 02/03/2023 CBC (INCL UDES DIFF/ PLT) MPV 9.3 fL 7.5-12 .5 normal Not Available [address], [address], 02/03/2023 04:53:02 02/03/20 23 02/03/2023 CBC (INCL UDES DIFF/ PLT) absolute neutrophils 2645 cells /uL 1500-7 800 normal Not Available [address], [address], 02/03/2023 04:53:02 02/03/20 23 02/03/2023 CBC (INCL UDES DIFF/ PLT) absolute lymphocytes 2094 cells /uL 850-39 00 normal Not Available [address], [address], 02/03/2023 04:53:02 02/03/20 23 02/03/2023 CBC (INCL UDES DIFF/ PLT) absolute monocytes 435 cells /uL 200-95 0 normal Not Available [address], [address], 02/03/2023 04:53:02 02/03/20 23 02/03/2023 CBC (INCL UDES DIFF/ PLT) absolute eosinophils 499 cells /uL 15-500 normal Not Available [address], [address], 02/03/2023 04:53:02 02/03/20 23 02/03/2023 CBC (INCL UDES DIFF/ PLT) absolute basophils 128 cells /uL 0-200 normal Not Available [address], [address], 02/03/2023 04:53:02 02/03/20 23 02/03/2023 CBC (INCL UDES DIFF/ PLT) neutrophils 45.6 % normal Not Available [address], [address], 02/03/2023 04:53:02 02/03/20 23 02/03/2023 CBC (INCL UDES DIFF/ PLT) lymphocytes 36.1 % normal Not Available [address], [address], 02/03/2023 04:53:02 02/03/20 23 02/03/2023 CBC (INCL UDES DIFF/ PLT) monocytes 7.5 % normal Not Available [address], [address], 02/03/2023 04:53:02 02/03/20 23 02/03/2023 CBC (INCL UDES DIFF/ PLT) eosinophils 8.6 % normal Not Available [address], [address], 02/03/2023 04:53:02 02/03/20 23 02/03/2023 CBC (INCL UDES DIFF/ PLT) basophils 2.2 % normal Not Available [address], [address], 02/03/2023 04:53:02 02/03/20 23 02/03/2023 T4, FREE T4, free 0.9 NG/dL 0.8-1. 8 normal Not Available [address] [address] [place], [address], 02/03/2023 04:53:03 02/03/20 23 02/03/2023 TSH TSH 1.64 mIU/L 0.40-4 .50 normal Not Available [facility] [address] [address] [place], [address], 02/03/2023 04:53:04 02/03/20 23 02/03/2023 VITAM IN [...] /MS is recom kanu d: order code 98185 (memo ents >2yrs ). See Note 1 Note 1 For addit ional infor lashae segura refer to http: //padmini Chris stDia gnost ics.c om/fa q/FAQ 199 (This link is being provi ded for infor muna machuca/ machelle horner only. ) Not Available [address] [address] [place], [address], 02/03/2023 04:53:05 08/14/19 24 08/15/2023 LIPID PANEL , STAND ZORA cholesterol, total 128 mg/dL <200 normal Not Available [facility] [address] [place], [address], 08/15/2023 11:50:25 08/14/19 24 08/15/2023 LIPID PANEL , STAND ZORA HDL cholesterol 56 mg/dL > or = 50 normal Not Available [facility] [address] [place], [address], 08/15/2023 11:50:25 08/14/19 24 08/15/2023 LIPID PANEL , STAND ZORA triglyceride s 229 mg/dL <150 high If a non-f astin g speci men was colle cted, consi emilio repea t trigl yceri de testi ng on a fasti ng speci men if clini delta indic ated. Naresh khan et al. J. of Clin. Lipid ol. 2015; 9:129 -169. Not Available [facility] [address] [address] [address], [place], [address], 08/15/2023 11:50:25 08/14/19 24 08/15/2023 LIPID PANEL [...] lated using the Wendy n-Hop kins calcu lorri n, which is a valid ated novel fernandao braden mullins r accur acy than the Fried esther equat ion in the estim ation of LDL-C . Wendy oseguera SS et al. YOLANDA. 2013; 310(1 9): 2061- 2068 (http ://ed ucati on.Qu estDi jose fos tics. com/f aq/FA Q164) Not Available [facility] [address] [address], [place], [address], 08/15/2023 11:50:25 08/14/19 24 08/15/2023 LIPID PANEL , STAND ZORA chol/HDLC ratio 2.3 (calc ) <5.0 normal Not Available [address], [address], 08/15/2023 11:50:25 08/14/19 24 08/15/2023 LIPID PANEL , STAND ZORA non HDL cholesterol 72 mg/dL _(christopher c) <130 normal For patie nts with diabe colby plus 1 major ASCVD risk facto r, treat ing to a non-H DL-C goal of <100 mg/dL (LDL- C of <70 mg/dL ) is consi dered a thera peuti c optio n. Not Available [address], [address], 08/15/2023 11:50:25 08/14/19 24 08/15/2023 COMPR EHENS THIEN METAB OLIC PANEL glucose 95 mg/dL 65-99 normal Fasti ng refer ence inter olayinka Not Available [address] [place], [address], 08/15/2023 11:50:26 08/14/19 24 08/15/2023 COMPR EHENS THIEN METAB OLIC PANEL urea nitrogen (BUN) 15 mg/dL 7-25 normal Not Available [address], [address], 08/15/2023 11:50:26 08/14/19 24 08/15/2023 COMPR EHENS THIEN METAB OLIC PANEL creatinine 1.17 mg/dL 0.60-1 .00 high Not Available [facility] [address], [address], 08/15/2023 11:50:26 08/14/19 24 08/15/2023 COMPR EHENS THIEN METAB OLIC PANEL eGFR 49 mL/mi n/1.7 3m2 > or = 60 low Not Available [facility] [address] [place], [address], 08/15/2023 11:50:26 08/14/19 24 08/15/2023 COMPR EHENS THIEN METAB OLIC PANEL BUN/creatini ne ratio 13 (calc ) 6-22 normal Not Available [address], [address], 08/15/2023 11:50:26 08/14/19 24 08/15/2023 COMPR EHENS THIEN METAB OLIC PANEL sodium 141 mmol/ L 135-14 6 normal Not Available [address], [address], 08/15/2023 11:50:26 08/14/19 24 08/15/2023 COMPR EHENS THIEN METAB OLIC PANEL potassium 4.4 mmol/ L 3.5-5. 3 normal Not Available [address], [address], 08/15/2023 11:50:26 08/14/19 24 08/15/2023 COMPR EHENS THIEN METAB OLIC PANEL chloride 106 mmol/ L 98-110 normal Not Available [address], [address], 08/15/2023 11:50:26 08/14/19 24 08/15/2023 COMPR EHENS THIEN METAB OLIC PANEL carbon dioxide 26 mmol/ L 20-32 normal Not Available [address], [address], 08/15/2023 11:50:26 08/14/19 24 08/15/2023 COMPR EHENS THIEN METAB OLIC PANEL calcium 9.1 mg/dL 8.6-10 .4 normal Not Available [address], [address], 08/15/2023 11:50:26 08/14/19 24 08/15/2023 COMPR EHENS THIEN METAB OLIC PANEL protein, total 6.6 g/dL 6.1-8. 1 normal Not Available [address] [address] [place], [address], 08/15/2023 11:50:26 08/14/19 24 08/15/2023 COMPR EHENS THIEN METAB OLIC PANEL albumin 3.9 g/dL 3.6-5. 1 normal Not Available [address], [address], 08/15/2023 11:50:26 08/14/19 24 08/15/2023 COMPR EHENS THIEN METAB OLIC PANEL globulin 2.7 g/dL_ (calc ) 1.9-3. 7 normal Not Available [address], [address], 08/15/2023 11:50:26 08/14/19 24 08/15/2023 COMPR EHENS THIEN METAB OLIC PANEL albumin/glob ulin ratio 1.4 (calc ) 1.0-2. 5 normal Not Available [address] [address] [place], [address], 08/15/2023 11:50:26 08/14/19 24 08/15/2023 COMPR EHENS THIEN METAB OLIC PANEL bilirubin, total 0.4 mg/dL 0.2-1. 2 normal Not Available [address], [address], 08/15/2023 11:50:26 08/14/19 24 08/15/2023 COMPR EHENS THIEN METAB OLIC PANEL alkaline phosphatase 65 U/L 37-153 normal Not Available [place] [facility] [address] [address] [place], [address], 08/15/2023 11:50:26 08/14/19 24 08/15/2023 COMPR EHENS THIEN METAB OLIC PANEL AST 17 U/L 10-35 normal Not Available [address], [address], 08/15/2023 11:50:26 08/14/19 24 08/15/2023 COMPR EHENS THIEN METAB OLIC PANEL ALT 11 U/L 6-29 normal Not Available [address], [address], 08/15/2023 11:50:26 08/14/19 24 08/15/2023 CBC (INCL UDES DIFF/ PLT) white blood cell count 6.3 thous and/u L 3.8-10 .8 normal Not Available [address], [address], 08/15/2023 11:50:27 08/14/19 24 08/15/2023 CBC (INCL UDES DIFF/ PLT) red blood cell count 4.03 brendan on/uL 3.80-5 .10 normal Not Available [address], [address], 08/15/2023 11:50:27 08/14/19 24 08/15/2023 CBC (INCL UDES DIFF/ PLT) hemoglobin 11.0 g/dL 11.7-1 5.5 low Not Available [address], [address], 08/15/2023 11:50:27 08/14/19 24 08/15/2023 CBC (INCL UDES DIFF/ PLT) hematocrit 34.4 % 35.0-4 5.0 low Not Available [address], [address], 08/15/2023 11:50:27 08/14/19 24 08/15/2023 CBC (INCL UDES DIFF/ PLT) MCV 85.4 fL 80.0-1 00.0 normal Not Available [address], [address], 08/15/2023 11:50:27 08/14/19 24 08/15/2023 CBC (INCL UDES DIFF/ PLT) MCH 27.3 pg 27.0-3 3.0 normal Not Available [address], [address], 08/15/2023 11:50:27 08/14/19 24 08/15/2023 CBC (INCL UDES DIFF/ PLT) MCHC 32.0 g/dL 32.0-3 6.0 normal Not Available [address], [address], 08/15/2023 11:50:27 08/14/19 24 08/15/2023 CBC (INCL UDES DIFF/ PLT) RDW 14.8 % 11.0-1 5.0 normal Not Available [address], [address], 08/15/2023 11:50:27 08/14/19 24 08/15/2023 CBC (INCL UDES DIFF/ PLT) platelet count 230 thous and/u L 140-40 0 normal Not Available [address], [address], 08/15/2023 11:50:27 08/14/19 24 08/15/2023 CBC (INCL UDES DIFF/ PLT) MPV 9.4 fL 7.5-12 .5 normal Not Available [address], [address], 08/15/2023 11:50:27 08/14/19 24 08/15/2023 CBC (INCL UDES DIFF/ PLT) absolute neutrophils 2930 cells /uL 1500-7 800 normal Not Available [facility] [address], [address], 08/15/2023 11:50:27 08/14/19 24 08/15/2023 CBC (INCL UDES DIFF/ PLT) absolute lymphocytes 2300 cells /uL 850-39 00 normal Not Available [address], [address], 08/15/2023 11:50:27 08/14/19 24 08/15/2023 CBC (INCL UDES DIFF/ PLT) absolute monocytes 504 cells /uL 200-95 0 normal Not Available [address], [address], 08/15/2023 11:50:27 08/14/19 24 08/15/2023 CBC (INCL UDES DIFF/ PLT) absolute eosinophils 485 cells /uL 15-500 normal Not Available [address], [address], 08/15/2023 11:50:27 08/14/19 24 08/15/2023 CBC (INCL UDES DIFF/ PLT) absolute basophils 82 cells /uL 0-200 normal Not Available [facility] [address], [address], 08/15/2023 11:50:27 08/14/19 24 08/15/2023 CBC (INCL UDES DIFF/ PLT) neutrophils 46.5 % normal Not Available [facility] [address], [address], 08/15/2023 11:50:27 08/14/19 24 08/15/2023 CBC (INCL UDES DIFF/ PLT) lymphocytes 36.5 % normal Not Available [address], [address], 08/15/2023 11:50:27 08/14/19 24 08/15/2023 CBC (INCL UDES DIFF/ PLT) monocytes 8.0 % normal Not Available [facility] [address], [address], 08/15/2023 11:50:27 08/14/19 24 08/15/2023 CBC (INCL UDES DIFF/ PLT) eosinophils 7.7 % normal Not Available [address], [address], 08/15/2023 11:50:27 08/14/19 24 08/15/2023 CBC (INCL UDES DIFF/ PLT) basophils 1.3 % normal Not Available [address], [address], 08/15/2023 11:50:27 08/14/19 24 08/15/2023 T4, FREE T4, free 1.0 NG/dL 0.8-1. 8 normal Not Available [address], [address], 08/15/2023 11:50:28 08/14/19 24 08/15/2023 TSH TSH 0.86 mIU/L 0.40-4 .50 normal Not Available [address], [address], 08/15/2023 11:50:29 02/03/20 24 02/04/2024 LIPID PANEL , STAND ZORA cholesterol, total 179 mg/dL <200 normal Not Available [address], [address], 02/04/2024 11:05:50 02/03/20 24 02/04/2024 LIPID PANEL , STAND ZORA HDL cholesterol 50 mg/dL > or = 50 normal Not Available [address], [address], 02/04/2024 11:05:50 02/03/20 24 02/04/2024 LIPID PANEL , STAND ZORA triglyceride s 190 mg/dL <150 high Not Available [address], [address], 02/04/2024 11:05:50 02/03/20 24 02/04/2024 LIPID PANEL , STAND ZORA LDL-choleste rol 101 mg/dL _(christopher c) high Refer ence range : <100 Mile able range <100 mg/dL for prima ry preve ntion ; <70 mg/dL for patie nts with CHD or diabe tic patie nts with > or = 2 CHD risk facto rs. LDL-C is now calcu lated using the [facility] kins traci blackmon n, which is a valid ated novel metho d provi ding harpreet r accur acy than the Fried esther equat ion in the estim ation of LDL-C . Wendy oseguera SS et al. YOLANDA. 2013; 310(1 9): 2061- 2068 (http ://ed ucati on.Qu estDi Linkuriouss. com/f aq/FA Q164) Not Available [facility] [address] [address] [place], [address], 02/04/2024 11:05:50 02/03/20 24 02/04/2024 LIPID PANEL , STAND ZORA chol/HDLC ratio 3.6 (calc ) <5.0 normal Not Available [address], [address], 02/04/2024 11:05:50 02/03/20 24 02/04/2024 LIPID PANEL , STAND ZORA non HDL cholesterol 129 mg/dL _(christopher c) <130 normal For patie nts with diabe colby plus 1 major ASCVD risk facto r, treat ing to a non-H DL-C goal of <100 mg/dL (LDL- C of <70 mg/dL ) is consi dered a thera gilson c optio n. Not Available [facility] [address] [address] [place], [address], 02/04/2024 11:05:50 02/03/20 24 02/04/2024 COMPR EHENS THIEN METAB OLIC PANEL glucose 95 mg/dL 65-99 normal Fasti ng refer ence inter olayinka Not Available [facility] [address] [address] [place], [address], 02/04/2024 11:05:52 02/03/20 24 02/04/2024 COMPR EHENS THIEN METAB OLIC PANEL urea nitrogen (BUN) 16 mg/dL 7-25 normal Not Available [address] [address] [place], [address], 02/04/2024 11:05:52 02/03/20 24 02/04/2024 COMPR EHENS THIEN METAB OLIC PANEL creatinine 1.21 mg/dL 0.60-1 .00 high Not Available [address], [address], 02/04/2024 11:05:52 02/03/20 24 02/04/2024 COMPR EHENS THIEN METAB OLIC PANEL eGFR 47 mL/mi n/1.7 3m2 > or = 60 low Not Available [address], [address], 02/04/2024 11:05:52 02/03/20 24 02/04/2024 COMPR EHENS THIEN METAB OLIC PANEL BUN/creatini ne ratio 13 (calc ) 6-22 normal Not Available [address], [address], 02/04/2024 11:05:52 02/03/20 24 02/04/2024 COMPR EHENS THIEN METAB OLIC PANEL sodium 139 mmol/ L 135-14 6 normal Not Available [address], [address], 02/04/2024 11:05:52 02/03/20 24 02/04/2024 COMPR EHENS THIEN METAB OLIC PANEL potassium 4.3 mmol/ L 3.5-5. 3 normal Not Available [address], [address], 02/04/2024 11:05:52 02/03/20 24 02/04/2024 COMPR EHENS THIEN METAB OLIC PANEL chloride 107 mmol/ L 98-110 normal Not Available [address], [address], 02/04/2024 11:05:52 02/03/20 24 02/04/2024 COMPR EHENS THIEN METAB OLIC PANEL carbon dioxide 25 mmol/ L 20-32 normal Not Available [address], [address], 02/04/2024 11:05:52 02/03/20 24 02/04/2024 COMPR EHENS THIEN METAB OLIC PANEL calcium 8.7 mg/dL 8.6-10 .4 normal Not Available [address], [address], 02/04/2024 11:05:52 02/03/20 24 02/04/2024 COMPR EHENS THIEN METAB OLIC PANEL protein, total 6.5 g/dL 6.1-8. 1 normal Not Available [address], [address], 02/04/2024 11:05:52 02/03/20 24 02/04/2024 COMPR EHENS THIEN METAB OLIC PANEL albumin 3.8 g/dL 3.6-5. 1 normal Not Available [address], [address], 02/04/2024 11:05:52 02/03/20 24 02/04/2024 COMPR EHENS THIEN METAB OLIC PANEL globulin 2.7 g/dL_ (calc ) 1.9-3. 7 normal Not Available [address], [address], 02/04/2024 11:05:52 02/03/20 24 02/04/2024 COMPR EHENS THIEN METAB OLIC PANEL albumin/glob ulin ratio 1.4 (calc ) 1.0-2. 5 normal Not Available [address], [address], 02/04/2024 11:05:52 02/03/20 24 02/04/2024 COMPR EHENS THIEN METAB OLIC PANEL bilirubin, total 0.4 mg/dL 0.2-1. 2 normal Not Available [address], [address], 02/04/2024 11:05:52 02/03/20 24 02/04/2024 COMPR EHENS THIEN METAB OLIC PANEL alkaline phosphatase 80 U/L 37-153 normal Not Available [facility] [address], [address], 02/04/2024 11:05:52 02/03/20 24 02/04/2024 COMPR EHENS THIEN METAB OLIC PANEL AST 15 U/L 10-35 normal Not Available [address], [address], 02/04/2024 11:05:52 02/03/20 24 02/04/2024 COMPR EHENS THIEN METAB OLIC PANEL ALT 11 U/L 6-29 normal Not Available [address], [address], 02/04/2024 11:05:52 02/03/20 24 02/04/2024 CBC (INCL UDES DIFF/ PLT) white blood cell count 5.8 thous and/u L 3.8-10 .8 normal Not Available [facility] [address], [address], 02/04/2024 11:05:53 02/03/20 24 02/04/2024 CBC (INCL UDES DIFF/ PLT) red blood cell count 3.98 brendan on/uL 3.80-5 .10 normal Not Available [facility] [address], [address], 02/04/2024 11:05:53 02/03/20 24 02/04/2024 CBC (INCL UDES DIFF/ PLT) hemoglobin 11.1 g/dL 11.7-1 5.5 low Not Available [employer] [address], [address], 02/04/2024 11:05:53 02/03/20 24 02/04/2024 CBC (INCL UDES DIFF/ PLT) hematocrit 34.8 % 35.0-4 5.0 low Not Available [address], [address], 02/04/2024 11:05:53 02/03/20 24 02/04/2024 CBC (INCL UDES DIFF/ PLT) MCV 87.4 fL 80.0-1 00.0 normal Not Available [facility] [address], [address], 02/04/2024 11:05:53 02/03/20 24 02/04/2024 CBC (INCL UDES DIFF/ PLT) MCH 27.9 pg 27.0-3 3.0 normal Not Available [address], [address], 02/04/2024 11:05:53 02/03/20 24 02/04/2024 CBC (INCL [...] nt's clini christopher condi tion. Not Available [facility] [address], [address], 02/04/2024 11:05:53 02/03/20 24 02/04/2024 CBC (INCL UDES DIFF/ PLT) RDW 13.9 % 11.0-1 5.0 normal Not Available [address], [address], 02/04/2024 11:05:53 11/20/20 24 02/04/2024 CBC (INCL UDES DIFF/ PLT) platelet count 270 thous and/u L 140-40 0 normal Not Available [address], [address], 02/04/2024 11:05:53 02/03/20 24 02/04/2024 CBC (INCL UDES DIFF/ PLT) MPV 9.9 fL 7.5-12 .5 normal Not Available [address], [address], 02/04/2024 11:05:53 02/03/20 24 02/04/2024 CBC (INCL UDES DIFF/ PLT) absolute neutrophils 2604 cells /uL 1500-7 800 normal Not Available [address], [address], 02/04/2024 11:05:53 02/03/20 24 02/04/2024 CBC (INCL UDES DIFF/ PLT) absolute lymphocytes 2198 cells /uL 850-39 00 normal Not Available [address], [address], 02/04/2024 11:05:53 02/03/20 24 02/04/2024 CBC (INCL UDES DIFF/ PLT) absolute monocytes 429 cells /uL 200-95 0 normal Not Available [address], [address], 02/04/2024 11:05:53 02/03/20 24 02/04/2024 CBC (INCL UDES DIFF/ PLT) absolute eosinophils 447 cells /uL 15-500 normal Not Available [address], [address], 02/04/2024 11:05:53 02/03/20 24 02/04/2024 CBC (INCL UDES DIFF/ PLT) absolute basophils 122 cells /uL 0-200 normal Not Available [address], [address], 02/04/2024 11:05:53 02/03/20 24 02/04/2024 CBC (INCL UDES DIFF/ PLT) neutrophils 44.9 % normal Not Available [address], [address], 02/04/2024 11:05:53 02/03/20 24 02/04/2024 CBC (INCL UDES DIFF/ PLT) lymphocytes 37.9 % normal Not Available [address], [address], 02/04/2024 11:05:53 02/03/20 24 02/04/2024 CBC (INCL UDES DIFF/ PLT) monocytes 7.4 % normal Not Available [address], [address], 02/04/2024 11:05:53 02/03/20 24 02/04/2024 CBC (INCL UDES DIFF/ PLT) eosinophils 7.7 % normal Not Available [address], [address], 02/04/2024 11:05:53 02/03/20 24 02/04/2024 CBC (INCL UDES DIFF/ PLT) basophils 2.1 % normal Not Available [address], [address], 02/04/2024 11:05:53 02/03/20 24 02/04/2024 T4, FREE T4, free 1.0 NG/dL 0.8-1. 8 normal Not Available [address], [address], 02/04/2024 11:05:54 02/03/20 24 02/04/2024 TSH TSH 1.10 mIU/L 0.40-4 .50 normal Not Available [address], [address], 02/04/2024 11:05:56 03/30/19 25 03/31/2024 RENAL FUNCT ION PANEL glucose 99 mg/dL 65-99 normal Fasti ng refer ence inter olayinka Not Available [address], [address], 03/31/2024 06:01:53 03/30/1903/31/2024 RENAL FUNCT ION PANEL urea nitrogen (BUN) 18 mg/dL 7-25 normal Not Available [address], [address], 03/31/2024 06:01:53 03/30/1903/31/2024 RENAL FUNCT ION PANEL creatinine 1.24 mg/dL 0.60-1 .00 high Not Available [address], [address], 03/31/2024 06:01:53 03/30/19 25 03/31/2024 RENAL FUNCT ION PANEL eGFR 45 mL/mi n/1.7 3m2 > or = 60 low Not Available [address], [address], 03/31/2024 06:01:53 03/30/19 25 03/31/2024 RENAL FUNCT ION PANEL BUN/creatini ne ratio 15 (calc ) 6-22 normal Not Available [address], [address], 03/31/2024 06:01:53 03/30/1903/31/2024 RENAL FUNCT ION PANEL sodium 139 mmol/ L 135-14 6 normal Not Available [address], [address], 03/31/2024 06:01:53 03/30/19 25 03/31/2024 RENAL FUNCT ION PANEL potassium 4.3 mmol/ L 3.5-5. 3 normal Not Available [address] [place], [address], 03/31/2024 06:01:53 03/30/1903/31/2024 RENAL FUNCT ION PANEL chloride 104 mmol/ L 98-110 normal Not Available [address], [address], 03/31/2024 06:01:53 03/30/1903/31/2024 RENAL FUNCT ION PANEL carbon dioxide 29 mmol/ L 20-32 normal Not Available [address], [address], 03/31/2024 06:01:53 03/30/1903/31/2024 RENAL FUNCT ION PANEL calcium 9.1 mg/dL 8.6-10 .4 normal Not Available [address], [address], 03/31/2024 06:01:53 03/30/1903/31/2024 RENAL FUNCT ION PANEL phosphate ( phosphorus) 4.3 mg/dL 2.1-4. 3 normal Not Available [address], [address], 03/31/2024 06:01:53 03/30/19 25 03/31/2024 RENAL FUNCT ION PANEL albumin 4.0 g/dL 3.6-5. 1 normal Not Available [address], [address], 03/31/2024 06:01:53 08/10/19 25 08/10/2024 LIPID PANEL , STAND ZORA cholesterol, total 143 mg/dL <200 normal Not Available [address], [address], 08/10/2024 13:30:55 08/10/19 25 08/10/2024 LIPID PANEL , STAND ZORA HDL cholesterol 62 mg/dL > or = 50 normal Not Available [address], [place], [address], 08/10/2024 13:30:55 08/10/1908/10/2024 LIPID PANEL , STAND ZORA triglyceride s 172 mg/dL <150 high Not Available [address] [address] [place], [address], 08/10/2024 13:30:55 08/10/1908/10/2024 LIPID PANEL , STAND ZORA LDL-choleste rol 56 mg/dL _(christopher c) normal Refer ence range : <100 Mile able range <100 mg/dL for prima ry preve ntion ; <70 mg/dL for patie nts with CHD or diabe tic patie nts with > or = 2 CHD risk facto rs. LDL-C is now calcu lated using the [employer] kins calcu lorri n, which is a valid ated novel fernandao d donnai iván rojaste r accur acy than the Fried esther equat ion in the estim ation of LDL-C . Wendy oseguera SS et al. YOLANDA. 2013; 310(1 9): 2061- 2068 (http ://ed ucati on.Qu [employer] VISUAL NACERT/f aq/FA Q164) Not Available [address] [address] [place], [address], 08/10/2024 13:30:55 08/10/1908/10/2024 LIPID PANEL , STAND ZORA chol/HDLC ratio 2.3 (calc ) <5.0 normal Not Available [address] [address] [place], [address], 08/10/2024 13:30:55 08/10/1908/10/2024 LIPID PANEL , STAND ZORA non HDL cholesterol 81 mg/dL _(christopher c) <130 normal For patie nts with diabe colby plus 1 major ASCVD risk facto r, treat ing to a non-H DL-C goal of <100 mg/dL (LDL- C of <70 mg/dL ) is consi dered a thera peuti c optio n. Not Available [address], [address], 08/10/2024 13:30:55 08/10/19 25 08/10/2024 COMPR EHENS THIEN METAB OLIC PANEL glucose 95 mg/dL 65-99 normal Fasti ng refer ence inter olayinka Not Available [address], [address], 08/10/2024 13:30:56 08/10/19 25 08/10/2024 COMPR EHENS THIEN METAB OLIC PANEL urea nitrogen (BUN) 19 mg/dL 7-25 normal Not Available [address], [address], 08/10/2024 13:30:56 08/10/19 25 08/10/2024 COMPR EHENS THIEN METAB OLIC PANEL creatinine 1.36 mg/dL 0.60-1 .00 high Not Available [address] [address] [place], [address], 08/10/2024 13:30:56 08/10/19 25 08/10/2024 COMPR EHENS THIEN METAB OLIC PANEL eGFR 41 mL/mi n/1.7 3m2 > or = 60 low Not Available [address], [address], 08/10/2024 13:30:56 08/10/19 25 08/10/2024 COMPR EHENS THIEN METAB OLIC PANEL BUN/creatini ne ratio 14 (calc ) 6-22 normal Not Available [address], [address], 08/10/2024 13:30:56 08/10/19 25 08/10/2024 COMPR EHENS THIEN METAB OLIC PANEL sodium 139 mmol/ L 135-14 6 normal Not Available [address], [address], 08/10/2024 13:30:56 08/10/19 25 08/10/2024 COMPR EHENS THIEN METAB OLIC PANEL potassium 4.3 mmol/ L 3.5-5. 3 normal Not Available [address], [address], 08/10/2024 13:30:56 08/10/19 25 08/10/2024 COMPR EHENS THIEN METAB OLIC PANEL chloride 105 mmol/ L 98-110 normal Not Available [address], [address], 08/10/2024 13:30:56 08/10/19 25 08/10/2024 COMPR EHENS THIEN METAB OLIC PANEL carbon dioxide 27 mmol/ L 20-32 normal Not Available [address], [address], 08/10/2024 13:30:56 08/10/19 25 08/10/2024 COMPR EHENS THIEN METAB OLIC PANEL calcium 9.0 mg/dL 8.6-10 .4 normal Not Available [address], [address], 08/10/2024 13:30:56 08/10/19 25 08/10/2024 COMPR EHENS THIEN METAB OLIC PANEL protein, total 6.5 g/dL 6.1-8. 1 normal Not Available [address], [address], 08/10/2024 13:30:56 08/10/19 25 08/10/2024 COMPR EHENS THIEN METAB OLIC PANEL albumin 4.0 g/dL 3.6-5. 1 normal Not Available [address], [address], 08/10/2024 13:30:56 08/10/19 25 08/10/2024 COMPR EHENS THIEN METAB OLIC PANEL globulin 2.5 g/dL_ (calc ) 1.9-3. 7 normal Not Available [address], [address], 08/10/2024 13:30:56 08/10/19 25 08/10/2024 COMPR EHENS THIEN METAB OLIC PANEL albumin/glob ulin ratio 1.6 (calc ) 1.0-2. 5 normal Not Available [address], [address], 08/10/2024 13:30:56 08/10/19 25 08/10/2024 COMPR EHENS THIEN METAB OLIC PANEL bilirubin, total 0.5 mg/dL 0.2-1. 2 normal Not Available [address], [address], 08/10/2024 13:30:56 08/10/19 25 08/10/2024 COMPR EHENS THIEN METAB OLIC PANEL alkaline phosphatase 70 U/L 37-153 normal Not Available [address], [address], 08/10/2024 13:30:56 08/10/19 25 08/10/2024 COMPR EHENS THIEN METAB OLIC PANEL AST 19 U/L 10-35 normal Not Available [address], [address], 08/10/2024 13:30:56 08/10/19 25 08/10/2024 COMPR EHENS THIEN METAB OLIC PANEL ALT 10 U/L 6-29 normal Not Available [address], [address], 08/10/2024 13:30:56 08/10/19 25 08/10/2024 CBC (INCL UDES DIFF/ PLT) white blood cell count 6.2 thous and/u L 3.8-10 .8 normal Not Available [address], [address], 08/10/2024 13:30:57 08/10/1908/10/2024 CBC (INCL UDES DIFF/ PLT) red blood cell count 4.03 brendan on/uL 3.80-5 .10 normal Not Available [address], [address], 08/10/2024 13:30:57 08/10/1908/10/2024 CBC (INCL UDES DIFF/ PLT) hemoglobin 10.9 g/dL 11.7-1 5.5 low Not Available [address], [address], 08/10/2024 13:30:57 08/10/1908/10/2024 CBC (INCL UDES DIFF/ PLT) hematocrit 35.4 % 35.0-4 5.0 normal Not Available [address], [address], 08/10/2024 13:30:57 08/10/1908/10/2024 CBC (INCL UDES DIFF/ PLT) MCV 87.8 fL 80.0-1 00.0 normal Not Available [address], [address], 08/10/2024 13:30:57 08/10/1908/10/2024 CBC (INCL UDES DIFF/ PLT) MCH 27.0 pg 27.0-3 3.0 normal Not Available [address], [address], 08/10/2024 13:30:57 08/10/1908/10/2024 CBC (INCL UDES DIFF/ PLT) MCHC 30.8 g/dL 32.0-3 6.0 low For adult s, a sligh t decre ase in the calcu lated MCHC value (in the range of 30 to 32 g/dL) is most likel y not clini delta signi fican t; rashmi er, it cari d be inter prete d with cauti on in corre lat n with other red cell kera eters and the patie nt's clini christopher condi tion. Not Available [facility] [address], [address], 08/10/2024 13:30:57 08/10/1908/10/2024 CBC (INCL UDES DIFF/ PLT) RDW 14.1 % 11.0-1 5.0 normal Not Available [address], [address], 08/10/2024 13:30:57 08/10/1908/10/2024 CBC (INCL UDES DIFF/ PLT) platelet count 255 thous and/u L 140-40 0 normal Not Available [facility] [address], [address], 08/10/2024 13:30:57 08/10/19 25 08/10/2024 CBC (INCL UDES DIFF/ PLT) MPV 9.4 fL 7.5-12 .5 normal Not Available [address], [address], 08/10/2024 13:30:57 08/10/1908/10/2024 CBC (INCL UDES DIFF/ PLT) absolute neutrophils 2809 cells /uL 1500-7 800 normal Not Available [facility] [address], [address], 08/10/2024 13:30:57 08/10/19 25 08/10/2024 CBC (INCL UDES DIFF/ PLT) absolute lymphocytes 2430 cells /uL 850-39 00 normal Not Available [facility] [address], [address], 08/10/2024 13:30:57 08/10/19 25 08/10/2024 CBC (INCL UDES DIFF/ PLT) absolute monocytes 477 cells /uL 200-95 0 normal Not Available [facility] [place] [address] [address], [place], [address], 08/10/2024 13:30:57 08/10/1908/10/2024 CBC (INCL UDES DIFF/ PLT) absolute eosinophils 397 cells /uL 15-500 normal Not Available [facility] [address], [address], 08/10/2024 13:30:57 08/10/1908/10/2024 CBC (INCL UDES DIFF/ PLT) absolute basophils 87 cells /uL 0-200 normal Not Available [facility] [address], [address], 08/10/2024 13:30:57 08/10/1908/10/2024 CBC (INCL UDES DIFF/ PLT) neutrophils 45.3 % normal Not Available [facility] [address], [address], 08/10/2024 13:30:57 08/10/1908/10/2024 CBC (INCL UDES DIFF/ PLT) lymphocytes 39.2 % normal Not Available [facility] [address], [address], 08/10/2024 13:30:57 08/10/1908/10/2024 CBC (INCL UDES DIFF/ PLT) monocytes 7.7 % normal Not Available [facility] [address], [address], 08/10/2024 13:30:57 08/10/1908/10/2024 CBC (INCL UDES DIFF/ PLT) eosinophils 6.4 % normal Not Available [facility] [address], [address], 08/10/2024 13:30:57 08/10/1908/10/2024 CBC (INCL UDES DIFF/ PLT) basophils 1.4 % normal Not Available [facility] [address], [address], 08/10/2024 13:30:57 08/10/1908/10/2024 CYSTA TIN C WITH EGFR cystatin C 1.96 mg/L 0.52-1 .10 high Not Available [address], [address], 08/10/2024 13:30:59 08/10/19 25 08/10/2024 CYSTA TIN C WITH EGFR eGFR 28 mL/mi n/1.7 3m2 > or = 60 low Not Available [facility] [address], [address], 08/10/2024 13:30:59 08/10/1908/10/2024 T4, FREE T4, free 1.0 NG/dL 0.8-1. 8 normal Not Available [address], [address], 08/10/2024 13:31:00 08/10/19 25 08/10/2024 TSH TSH 2.00 mIU/L 0.40-4 .50 normal Not Available [address], [address], 08/10/2024 13:31:01 10/16/19 23 10/15/2022 anahy GU digit al, bilat eral No observ ation record ed. [address] [facility] [address], [place], [address], 10/15/2022 16:57:28 10/17/19 23 10/15/2022 anahy GU digit al, bilat eral No observ ation record ed. [place] [id number] [facility] [address], [place], [address], 10/17/2022 08:30:27 10/05/19 24 10/05/2023 MRI, knee, w/o contr ast No observ ation record ed. [address] [facility] [address], [place], [address], 10/05/2023 17:52:27 04/12/19 25 04/12/2024 US, renal No observ ation record ed. [address] [facility] [address], [place], [address], 04/12/2024 12:37:03 04/12/19 25 04/12/2024 US, renal No observ ation record ed. [address] [facility] [address], [place], [address], 04/12/2024 12:39:56 07/08/19 25 07/07/2024 MAMMO , [place], bilat eral No observ ation record ed. [address] [facility] [address], [place], [address], 07/07/2024 13:54:33 Result Notes None recorded. Problems Name Problem SNOMED Code Status Onset Date Resolution Date Notes Provider Name and Address Organization Details Recorded Time Irritable bowel syndrome 28525811 Active Not Available [facility] 3 12:55:23 Benign essential hypertensi on 9663440 Active Not Available [facility] 3 12:55:23 Right flank pain 251486279 Active 2016 Not Available [facility] 3 12:55:23 Chest pain 22277925 Active Not Available [facility] 3 12:55:23 Current tear of medial cartilage AND/OR meniscus of knee Active Not Available [facility] 3 12:55:23 Current tear of lateral cartilage AND/OR meniscus of knee Active Not Available [facility] 3 12:55:23 Vitamin D deficiency 33400282 Active 2021 Not Available [facility] 3 12:55:23 Osteoarthr itis 144917804 Active Not Available [facility] 3 12:55:23 Obesity 526771237 Active Not Available [facility] 3 12:55:23 Carpal tunnel syndrome 84573347 Active Not Available [facility] 3 12:55:23 Derangemen t of knee 55849455 Active Not Available [facility] 3 12:55:23 Meralgia parestheti ca 18045464 Active Not Available [facility] 3 12:55:23 Obese class II [id number] 05 Active 2022 Adrian Mohr MD [address], [address], [place], [address] , [place] [facility] 3 10:59:44 Pica 86314545 Active 2022 Adrian Mohr MD [address], [address], [place], [address] , [place] [facility] 3 11:01:01 Hyperchole sterolemia 63401073 Active 2023 Adrian Mohr MD [address], [address], [place], [address] , [place] [facility] 4 10:41:19 Coronary arterioscl erosis 68194589 Active 2023 Adrian Mohr MD [address], [address], [place], [address] , [place] [facility] 4 11:04:06 Osteoporos is 50646785 Active 2023 Jyoti Mark null, [place] [facility] 4 11:18:50 Serum creatinine above reference range 406914680 Active 2023 ROCHELLE Hdez, [place] [facility] 4 15:57:26 Chronic renal failure 40326010 Active 2024 ROCHELLE Hdez, [place] [facility] 5 12:36:18 Problem Notes None recorded. Procedures Surgical History Date Name Laterality Status Provider Name and Address Organization Details Recorded Time 4 Medicare Wellness CPT Code, subsequent completed Reva Ohara RN [facility] [employer] [facility] 02/02/2024 10:58:48 3 Medicare Wellness CPT Code, subsequent completed Reva Ohara RN [facility] [employer] [facility] 01/27/2023 10:59:11 0 Most Recent Bone Density completed Not Available [facility] 05/14/2022 12:53:07 Imaging Results None recorded. Procedure Notes None recorded. Medical Equipment None Reported. Allergies Allergen ID Allergen Name Allergen Category Reaction Reaction Severity Criticality Documentation Date Start Date Code Code System Note Provider Name and Address Organization Details Recorded Time 57914 codeine medicatio n other Not available Not available 05/14/2022 2670 RxNorm anxie ty ROCHELLE Hdez, [employer] [facility] 4 15:30:35 06118 Aleve medicatio n nausea Not available Not available 05/14/2022 88946 1 RxNorm Not Available [facility] 3 12:59:20 89982 Product containin g 3-hydroxy -3-methyl glutaryl- coenzyme A reductase inhibitor (product) medicatio n myalgias (muscle pain) mild low 02/02/2024 50267 009 SNOMED Adrian Mohr MD [address] [address], [place], [address] [place] [address] [employer] [facility] 4 11:05:07 Medications Name Sig Start Date [...] Updated DateTime 3 160.02 cm 35.8 kg/m2 39352.6 6 g 90 /min 97 [degF] 98 % 98 % 120 mm[Hg] 64 mm[Hg] Jyoti K[employer]a [employer] [facility] [employer] [facility] 3 10:40:53 Date Recorded Body height Body mass index (BMI) Body weight Heart rate Body temperature Oxygen saturation Oxygen saturation in Arterial blood by Pulse oximetry Systolic blood pressure Diastolic blood pressure Provider Name and Address Organization Details Last Updated DateTime 4 160.02 cm 36 kg/m2 58194.2 5 g 85 /min 97 [degF] 97 % 97 % 120 mm[Hg] 62 mm[Hg] Jyoti K[employer] Water [facility] 4 10:38:09 Date Recorded Body height Body mass index (BMI) Body weight Heart rate Body temperature Oxygen saturation Oxygen saturation in Arterial blood by Pulse oximetry Systolic blood pressure Diastolic blood pressure Provider Name and Address Organization Details Last Updated DateTime 5 160.02 cm 36.9 kg/m2 82755.0 1 g 83 /min 97 [degF] 97 % 97 % 120 mm[Hg] 64 mm[Hg] [employer] 5 10:46:18 Date Recorded Body height Body mass index (BMI) Body weight Heart rate Body temperature Oxygen saturation Oxygen saturation in Arterial blood by Pulse oximetry Systolic blood pressure Diastolic blood pressure Provider Name and Address Organization Details Last Updated DateTime 3 160.02 cm 36.8 kg/m2 42610.2 1 g 86 /min 97 [degF] 98 % 98 % 122 mm[Hg] 58 mm[Hg] Jyoti [employer] [facility] 3 10:51:37 Date Recorded Body height Body mass index (BMI) Body weight Heart rate Body temperature Oxygen saturation Oxygen saturation in Arterial blood by Pulse oximetry Systolic blood pressure Diastolic blood pressure Provider Name and Address Organization Details Last Updated DateTime 4 160.02 cm 36.3 kg/m2 32707.4 4 g 77 /min 97 [degF] 98 % 98 % 124 mm[Hg] 70 mm[Hg] LEONORA Pro [place] [facility] [place] [employer] [facility] 4 10:43:21 Social History Question Answer Notes LastModified by Organizat ion Details LastModified Time Tobacco Smoking Status Never Smoker Not Available [facility] 05/14/2022 12:52:54 Do You Have An Advance Directive? Yes [id number] Information not available 05/14/2022 Are You Blind Or Do You Have Difficulty Seeing? No MIGRATION.126584 9316 Information not available 05/14/2022 Are You Deaf Or Do You Have Serious Difficulty Hearing? No MIGRATION.866521 1450 Information not available 05/14/2022 What Type Of Diet Are You Following? REGULAR MIGRATION.945809 5932 Information not available 05/14/2022 Have There Been Any Changes To Your Family Or Social Situation? No MIGRATION.853743 1419 Information not available 05/14/2022 What Is The Fluoride Status Of Your Home? Unknown MIGRATION.377392 7640 Information not available 05/14/2022 Are There Any Guns Present In Your Home? No MIGRATION.314936 0765 Information not available 05/14/2022 Do You Use Insect Repellent Routinely? No MIGRATION.722518 9212 Information not available 05/14/2022 Where Do You Live? SingleLevelHouse MIGRATION.570644 6788 Information not available 05/14/2022 Guns Present In The Home? No [email or web address] Information not available 01/27/2023 Are You Able To Care For Yourself? Yes [email or web address] Information not available 01/27/2023 Are You Blind Or Do Yo Have Difficulty Seeing? No [email or web address] Information not available 01/27/2023 Are You Deaf Or Do You Have Serious Difficulty Hearing? No Information not available 01/27/2023 Live Alone Of With Others? Alone [email or web address] Information not available 01/27/2023 Do You Have A Medical Power Of Crm System Administrator? Yes [email or web address] Information not available 01/27/2023 What Was The Date Of Your Most Recent Tobacco Screening? 02/02/2024 [email or web address] Information not available 02/02/2024 Do You Have Any Pets? No MIGRATION.864565 9474 Information not available 05/14/2022 What Is Your Relationship Status? MIGRATION.604071 2061 Information not available 05/14/2022 Do You Use Your Seat Belt Or Car Seat Routinely? Yes [email or web address] Information not available 01/27/2023 Do You Have Smoke And Carbon Monoxide Detectors In Your Home? Yes MIGRATION.640452 0520 Information not available 05/14/2022 Are You Passively Exposed To Smoke? No MIGRATION.100087 3055 Information not available 05/14/2022 Are There Any Smokers In Your House? No MIGRATION.428274 4051 Information not available 05/14/2022 Do You Use Sunscreen Routinely? No MIGRATION.196467 8462 Information not available 05/14/2022 Do You Have Difficulty Walking Or Climbing Stairs? No MIGRATION.984256 9263 Information not available 05/14/2022 Do You Have Any Dietary Restrictions? No MIGRATION.310170 7672 Information not available 05/14/2022 Sex: Unknown Functional Status Question Answer Note LastModified by Luv Rinkat ion Details LastModified Time What is your level of alcohol consumption? Occasional MIGRATION.300830 1610 Information not available 05/14/2022 Do you or have you ever used smokeless tobacco? Never used smokeless tobacco MIGRATION.020795 2598 Information not available 05/14/2022 Do you have transportation difficulties? No MIGRATION.297761 5970 Information not available 05/14/2022 Are you able to walk? YESWOREST MIGRATION.934082 0770 Information not available 05/14/2022 Do you have difficulty doing errands alone? No MIGRATION.679523 2105 Information not available 05/14/2022 Are you able to care for yourself? Yes MIGRATION.826227 0822 Information not available 05/14/2022 Do you have difficulty dressing or bathing? No MIGRATION.153898 1150 Information not available 05/14/2022 Do you or have you ever used e-cigarettes or vape? Never used electronic cigarettes MIGRATION.094171 1128 Information not available 05/14/2022 What is your exercise level? Occasional MIGRATION.883003 0709 Information not available 05/14/2022 Mental Status Question Answer Note LastModified by Organizat ion Details LastModified Time Do you have difficulty concentrating, remembering or making decisions? No MIGRATION.[id number] 6 Information not available 05/14/2022 Family History [...] HAVE YOU BEEN HOSPITALIZED OR SEEN IN [facility] IN THE PAST YEAR ? N ATHEROSCLEROSIS [...] mL 3 completed Shweta Gutiérrez CMA null, [place] [facility] 09/19/2022 10:01:10 Influenza, high-dose, quadrivalent, PF 3 completed Adrian Mohr MD [address] [facility], [address] [address], [place], [address], [employer] 01/27/2023 11:20:07 Influenza, split virus, quadrivalent, preservative 1 completed Not Available [facility] 05/14/2022 12:59:12 SARS-COV-2 (COVID-19) vaccine, UNSPECIFIED 1 completed Not Available [facility] 05/14/2022 12:59:12 influenza, unspecified formulation 2 completed Not Available [facility] 05/14/2022 12:59:12 COVID-19, mRNA, LNP-S, bivalent, PF, 50 mcg/0.5 mL or 25mcg/0.25 mL dose 2 completed Not Available [facility] 05/14/2022 12:59:12 SARS-COV-2 (COVID-19) vaccine, UNSPECIFIED 1 completed Not Available [facility] 05/14/2022 12:59:12 SARS-COV-2 (COVID-19) vaccine, UNSPECIFIED 1 completed Not Available [facility] 05/14/2022 12:59:12 Pneumococcal conjugate PCV 13 9 completed Not Available [facility] 05/14/2022 12:59:12 zoster live 4 completed Not Available [facility] 05/14/2022 12:59:13 Influenza, split virus, trivalent, preservative 4 completed Not Available [facility] 05/14/2022 12:59:13 Past Encounters Encounter ID Performer Location Encounter Start Date Encounter Closed Date Diagnosis/Indication Diagnosis SNOMED-CT Code Diagnosis ICD10 Code Diagnosis Note [id number] Adrian Mohr MD [facility] [place] [address] [place] [address] [place] [address] 08/21/2020 00:00:00 08/21/2020 12:51:25 [id number] Adrian Mohr MD [facility] [place] [address] [place] [address] [place] [address] 03/05/2021 00:00:00 03/05/2021 12:31:03 [id number] Adrian Mohr MD [facility] [place] [address] [place] [address] [place] [address] 01/21/2022 00:00:00 01/21/2022 11:04:18 [id number] Adrian Mohr MD [facility] [place] [address] [place] [address] [place] [address] 07/22/2022 10:32:32 07/22/2022 11:12:19 Benign essential hypertension 0534220 I10 Obese class II 738987939 1 73847 E66.9 Pica 56520958 F50.89 [id number] Adrian Mohr MD [facility] [place] [address] [place] [address] [place] [address] 01/27/2023 10:42:29 01/27/2023 11:25:50 Administration of influenza vaccine 33221562 Z23 Adult heal th examination 958954796 Z00.00 Screening for disorder 760207746 Z13.9 Benign ess ential hypertension 6377191 I10 Chest pain 62714279 R07. 9 Obese class II 127966315 1 52511 E66.9 Vitamin D deficiency 347 74332 E55.9 [id number] Adrian Mohr MD [facility] [place] [address] [place] [address] [place] [address] 07/28/2023 10:36:25 07/28/2023 10:53:17 Benign essential hypertension 8459778 I10 Hypercholesterolemia 136 76493 E78.00 Obese class II 246959743 1 89533 E66.9 [id number] Adrian Mohr MD [facility] [address] [facility] [address] [place] [address] 02/02/2024 10:29:33 02/02/2024 11:26:44 Adult health examination 637231116 Z00.00 Screening for disorder 072652563 Z13.9 Benign ess ential hypertension 0657036 I10 Hypercholesterolemia 136 95497 E78.00 Coronary arteriosclerosis 53120572 I25.10 Obesity 644874922 E66.9 [id number] Adrian Mohr MD [facility] Internal Med [address] [facility], [facility] [address] [place] [address] 08/02/2024 10:45:35 08/02/2024 10:56:04 Benign essential hypertension 7395979 I10 Coronary arteriosclerosis 16056539 I25.10 Hypercholesterolemia 136 58423 E78.00 Obese class II 558822093 1 07449 E66.9 Serum crea tinine above reference range 193368923 R79.89 Health Concerns Section Related Observation LastModified by Organization Detai ls LastModified Time None Recorded Concern Status LastModified by Organization Details LastModified Time None Recorded Advance Directives Directive Y: Payers Insurance Date Sequence Insurance Name Policy Number Policy Cheema Covered Member ID Cheema Member ID Guarantor Name 08/02/2024 1 [place] Valerie Sheridan [id number] Valerie Sheridan 08/02/2024 2 [place]) [id number] Valerie Crolweyos [id number] Valerie Sheridan Notes Date Note Type Note Provider Name and Address Organization Details Recorded Time 07/23/19 23 text/htm l Patient Name: Valerie CrowleyosDate Of Service: Thursday ( 07.22.2022 ): 1950 [...] Symptoms: none Medication Reconciliation: from medication list. Ujimhousctu17/13/2022: 02/25/2022: Bone density scan demonstrates normal bone [...] HtnADRs List Reviewed 07/22/2022leve NauseaCodeine AnxietyVaccination and Dbxmvxgmikjr8929-09 Aogxilgiu5886-12 Covid Nzfepmh0293-93 Pneumovax 635907-96 Prevnar 13Surgical HistoryCholecystectomy, Tubal LigationPreventative Testing Confirmed by Our Qmworru2102/25/2022 DEXA SCAN02/13/2022 ALBUMIN 3.8 G/DL05/16/2021 MAMMOGRAM /07/2016 COLONOSCOPY (5 YEARS) 06/18/2021ocial HistoryDoes not smoke. Quit in 1970. Smoked a pack a day for 10 years. Drinks socially. 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 all pneumonia(1) RA(1) COPD(1), CAD(1)Six sisters. Three MVA(1) CAD(2) Adrian Mohr MD [address] [facility], [facility] [address], [place], [address], [facility] [employer] 07/22/2022 11:10:59 01/28/20 23 text/htm l Patient [...] Systemic Symptoms:none Medication Reconciliation: from medication list. Iyfrqshvqhj77/13/2022: Bone density scan demonstrates normal bone density. [...] offered to be evaluated and instructed by master mechanic on weight loss diet.Medication List Reviewed and Reconciled 01/27/2023spirin 81 MG One Daily For Vascular ProphylaxisLisinopril 20 MG (TABLET - ORAL) One Daily For HtnEstrogens Daily As DirectedADRs List Reviewed 01/27/2023leve NauseaCodeine AnxietyVaccination and Xtyqwpxwcwfx7195-12 Twlrcuqki0650-75 Covid Yqkwacw0728-23 Yoyjuxxrc2060-67 Prevnar 13 Xr4733-25 TdapSurgical HistoryCholecystectomy, Tubal LigationPreventative Testing Confirmed by Our Cibpnff4810/15/2022 MAMMOGRAM DEXA SCAN02/13/2022 ALBUMIN 3.8 G/DL N006/18/2016 COLONOSCOPY (5 YEARS) 06/18/2021ocial HistoryDoes not smoke. Quit in 1970. Smoked a pack a day for 10 years. Drinks socially. 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 all pneumonia(1) RA(1) COPD(1), CAD(1)Six sisters. Three MVA(1) CAD(2) Adrian Mohr MD [address] [facility], [facility] [address], [place], [address], [facility] [employer] 01/27/2023 11:21:01 07/28/19 24 text/htm l Patient [...] Systemic Symptoms:none Medication Reconciliation: from medication list. Myytrevfmjp89/13/2022: Bone density scan demonstrates normal bone density. [...] offered to be evaluated and instructed by master mechanic on weight loss diet. Active Medication ListAspirin 81 MG One Daily For Vascular ProphylaxisLisinopril 20 MG (TABLET - ORAL) One Daily For HtnEstrogens Daily As DirectedCrestor 10 MG TABLET, FILM COATED Once Daily Adverse Drug Reactions ReviewedAleve NauseaCodeine Anxiety Vaccination and Ltbxcyhdkfyh2907-79 Vkhqoawyx6339-31 Covid Vaozcny4976-89 Bkxdeajbh4277-23 Prevnar 13 Ty8809-99 Tdap Surgical Xstbkmv8836-76 Lmzwffpyhbktsnw5908-63 Tubal Ligation Preventative Hwulfka4904/28/2023 COLONOSCOPY ( 5 YEARS ) / ALBUMIN 3.9 G/DL N010/15/2022 MAMMOGRAM 412/ DEXA SCAN Social HistoryDoes not smoke. Quit in 1970. Smoked a pack a day for 10 years. Drinks socially. 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 Family HistoryMother 85 ASHDFather at 67 from [place] of LungThree brothers. all pneumonia(1) RA(1) COPD(1), CAD(1)Six sisters. Three MVA(1) CAD(2) Adrian Mohr MD [address] [facility], [facility] [address], [place], [address], [facility] [employer] 07/28/2023 10:44:56 02/02/20 24 text/htm l Patient Name: Valerie Herron FatimahDate Of Service: Thursday ( 02.02.2024 ): 1950 [...] colonic neoplasm screening, mammograms and DEXA Scan. Gedwggkmvkq21/13/2022: Bone density scan demonstrates normal bone density. [...] offered to be evaluated and instructed by master mechanic on weight loss diet. Wishes to be evaluated by Dietary: No and was offered to be evaluated and instructed by master mechanic on weight loss diet. Active Medication ListAspirin 81 MG One Daily For Vascular ProphylaxisLisinopril 20 MG (TABLET - ORAL) One Daily For HtnEstrogens Daily As Directed Adverse Drug Reactions ReviewedAleve NauseaCodeine AnxietyAtorvastatin Calcium MyalgiaRosuvastatin Myalgia Vaccination and Immunization(X) 2023-01 INFLUENZA(X) 2010-02 TDAP( ) 2019-02 PREVNAR 13 GC(X) 2021-01 COVID MODERNA( ) 2020-08 PNEUMOVAX Surgical Ixqzlfm7532-18 Jtlpwehaaixzywo5609-54 Tubal Ligation Preventative Testing( ) 08/14/2023 Albumin 3.9 G/DL N( ) 04/28/2023 Colonoscopy ( 5 Years ) 04/28/2028( ) 10/15/2022 Mammogram 10/15/2024( ) 02/25/2022 DEXA Scan 02/26/2024 Social HistoryDoes not smoke. Quit in 1970. Smoked a pack a day for 10 years. Drinks socially. 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 Family HistoryMother 85 ASHDFather at 67 from [...] 2021-01 COVID MODERNA( ) 2020-08 PNEUMOVAX Surgical Liswwrl5765-41 Asscormtfqtocpq3882-08 Tubal Ligation Preventative Testing( ) 08/14/2023 Albumin 3.9 G/DL N( ) 04/28/2023 Colonoscopy ( 5 Years ) 04/28/2028( ) 10/15/2022 Mammogram 10/15/2024( ) 02/25/2022 DEXA Scan 02/26/2024 Social HistoryDoes not smoke. Quit in 1970. Smoked a pack a day for 10 years. Drinks socially. 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 Family HistoryMother 85 ASHDFather at 67 from Ca of LungThree brothers. all pneumonia(1) RA(1) COPD(1), CAD(1)Six sisters. Three MVA(1) CAD(2) Adrian Mohr MD [address] [place] [address], [facility] [address], [place], [address], [facility] [employer] [facility] 02/02/2024 11:11:10 08/03/19 25 text/htm l Patient Name: Valerie Herron JarosDate Of Service: Thursday ( 08.02.2024 ): 1950 [...] offered to be evaluated and instructed by master mechanic on weight loss diet. Active Medication ListAspirin [...] 2020- COVID MODERNA( ) 2020- PNEUMOVAX Surgical Psmethe6807-80 Lztfqcqhhkkszmy9059-30 Tubal Ligation Preventative TestingPreventative Testing Discussed and Scheduled if Acceptable to Patient ( ) 07/07/2024 Mammogram 07/07/2026( ) 03/30/2024 Albumin 4.0 G/DL N( ) 04/28/2023 Colonoscopy ( 5 Years ) 04/28/2028(X) 02/25/2022 DEXA Scan 02/26/2024 Social HistoryDoes not smoke. Quit in 1970. Smoked a pack a day for 10 years. Drinks socially. 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 Family HistoryMother 85 ASHDFather at 67 from [place] of LungThree brothers. all pneumonia(1) RA(1) COPD(1), CAD(1)Six sisters. Three MVA(1) CAD(2) Adrian Mohr MD [address] [address], [place], [address], [facility] 08/02/2024 10:53:44 OBGyn Episode No OBEpisode recorded.
--- OUTSIDE RECORDS SUMMARY | 2024-09-13 14:55 | XMS_ITS | Clinical Summary ---
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
== END 2024-09-13 14:52 | disposition home or self-care (01) ==
PROVIDERS: PCP Internal Medicine; Visit Provider Internal Medicine
DX: M81.0 Age-related osteoporosis without current pathological fracture (principal); Z13.820 Encounter for screening for osteoporosis; Z12.31 Encounter for screening mammogram for malignant neoplasm of breast
CPT/HCPCS: 77080